=== PATIENT | female | born 1965 | race Two or more races ===

== ENCOUNTER 2022-02-22 17:31 | Emergency (ER) | payer MEDICARE, MEDICAID, SELFPAY ==
[2022-02-22 17:50] VITALS: BP 181/80; PULSE 81; O2SAT 96
--- NOTE | 2022-02-22 17:57 | ED_ITS ---
HPI - General Adult General Chief complaint: General Medical Stated complaint: INCREASED DEPRESSION Time Seen by Provider: 02/22/22 17:49 Source: patient and EMS Mode of arrival: EMS Limitations: no limitations History of Present Illness HPI narrative: This is a 57-year-old female history of CVA with left-sided deficits non ambulatory, anxiety, depression presenting to the emergency department via ambulance with complaints of anxiety and depression worsening over the past 2 months. Patient tells me she moved from [place] 2 months ago, is currently living with her sister, has not been taking any of my her medications as she ran out, and she has no healthcare providers here in the [facility]. Patient reports all her life stressors or causing her to feel anxious, depressed. patient is tearful. She denies visual, auditory and tactile hallucinations. Denies SI and HI. Denies any medical complaints. Onset (ago): month(s) (2) Radiation: non-radiation Relieving factors: none Exacerbating factors: none Associated symptoms: denies other symptoms Treatments prior to arrival: none Related Data Previous Rx's Medication Instructions Recorded lorazepam 0.5 mg tablet (Ativan) 0.5 mg PO BID PRN anxiety #12 tabs 02/23/22 metformin 500 mg tablet 500 mg PO BID #30 tabs 02/23/22 Allergies Allergy/AdvReac Type Severity Reaction Status Date / Time No Known Allergies Allergy Unverified 03/24/20 19:26 [No Known Allergies*] Review of Systems Review of Systems: Constitutional : No Weight loss, No Fever, No Chills, No Fatigue, No Malaise ENT/Mouth : No sore throat, No Rhinorrhea Eyes: No Eye Pain, No Swelling, No Redness Cardiovascular : No Chest Pain, No SOB, No Dyspnea on Exertion, No Orthopnea, No Edema, No Palpitations Respiratory : No Cough, No Sputum, No Wheezing Gastrointestinal : No Nausea, No Vomiting, No Diarrhea, No Constipation, No abdominal Pain, No Hematochezia, No Melena Genitourinary : No Dysuria, No Urinary Frequency, No Hematuria, Musculoskeletal : No joint pain, No Myalgias, No Joint Swelling Skin : No Skin Lesions, No rash Neuro : No Weakness, No Numbness, No Dizziness, No Headache Psych : + Anxiety/Panic, + Depression, No SI or HI All other systems reviewed and are negative Yes all other systems are reviewed and are negative PMFSH Past Medical History Attestation statement: The following information was validated with the patient. Source: old records reviewed and nursing notes reviewed Social History Social History Advance Directives: No Advance Directives Information Provided: No Physical Exam ED Vital Signs: Vital Signs - 24 hr 02/22/22 17:58 02/22/22 22:25 02/22/22 23:57 Temperature 98 F 98.1 F Pulse Rate 78 64 65 Respiratory Rate 18 19 20 Blood Pressure 148/76 H 135/73 117/76 Pulse Oximetry 98 96 95 Oxygen Delivery Method Room Air Room Air Room Air BMI result Body Mass Index 51.5 vss Appearance: Alert.? Oriented X3.? No acute distress.? Patient tearful. Head: Normocephalic, atraumatic, no step-offs or deformities Eyes: Pupils equal, round and reactive to light.? ENT: Pharynx normal.? Neck: Normal inspection.? Neck supple.? CVS: Normal heart rate and rhythm.? Pulses normal.? Respiratory: No respiratory distress.? Breath sounds normal.? Abdomen: Soft and nontender.? Skin: Skin warm and dry.? Normal skin color.? Normal skin turgor.? Extremities: No lower extremity edema.? No calf ttp. 5/5 strength to Right upper and right lower extremities. Weakness to left upper and left lower extremities from old CVA. Neuro: Oriented X 3.? No motor deficit.? No sensory deficit. CN 2-12 intact Course Reevaluation(s) Reevaluation #1: CBC with no acute findings. Chemistry with no acute electrolyte abnormalities requiring intervention. Urine clean. Ethanol negative. COVID negative. Urine toxicology pending. Time: 22:48 Reevaluation #2: Patient's glucose elevated, patient does not have a PCP at this time she will be started on metformin at 500 mg p.o. b.i.d. daily. I provided patient with outpatient provider so she can call and schedule an appointment. AMINATA Figueroa spoke to this patient, patient denying SI and HI, VH and is putting in an urgent outpatient referral for med providers. She is safe for discharge home diagnosis major depression and anxiety. At this time patient will be discharged. Advised to return with any new or worsening symptoms. Patient excited to go home, will go home with family member. I will start her on metformin as suggested to me by my attending. Gave her list of PCPs she will call tomorrow to schedule an appointment. Time: 01:45 Medical Decision Making MDM Narrative Medical decision making narrative: 1800 57-year-old female presents with anxiety, depression x2 months worsening over the past few days. Not taking any medications as she ran out. Recently moved from [place]. Physical examination with left-sided deficits to upper and lower extremities, regular rate and rhythm, lungs clear, abdomen soft nontender nondistended. Patient alert and oriented x4, tearful upon my examination. With stable vital signs. Left-sided deficits are from an old CVA, no signs of acute stroke at this time, no weakness, headache, dizziness or vision changes. Plan at this time is medical clearance and evaluation by the behavioral health team. Medical Records Medical records reviewed: Yes I reviewed the patient's medical records. Lab Data Lab results reviewed: Yes I reviewed the patient's lab results. Result diagrams: 02/22/22 18:37 02/22/22 18:37 Labs: Lab Results 02/22/22 02/22/22 02/22/22 Range/Units 18:37 18:37 18:37 WBC 10.9 H (4.8-10.8) X10*3/uL RBC 5.05 (4.20-5.50) X10*6/uL Hgb 14.4 (12.0-16.0) g/dl Hct 46.2 (37.0-47.0) % MCV 91.5 (80.0-98.0) fL MCH 28.5 (27.0-33.0) pg MCHC 31.2 (31.0-35.0) g/dl RDW 14.6 (11.0-16.0) % Plt Count 298 (160-400) X10*3/uL MPV 11.1 (9.4-12.3) fL Immature Gran % (Auto) 0.4 (0.0-0.4) % Neut % (Auto) 66.2 (45-73) % Lymph % (Auto) 24.1 (20-40) % [place] % (Auto) 6.2 (2-11) % Eos % (Auto) 2.6 (0-4) % Baso % (Auto) 0.5 (0-2) % Lymph # (Auto) 2.6 (1.2-4.9) X10*3/uL [place] # (Auto) 0.7 (0.1-1.2) X10*3/uL Eos # (Auto) 0.3 (0.0-0.4) X10*3/uL Baso # (Auto) 0.1 (0.0-0.2) X10*3/uL Abs Immat Gran (auto) 0.04 H (0.00-0.03) X10*3/uL Absolute Neuts (auto) 7.2 (2.0-8.3) x10*3/uL Absolute Nucleated RBC 0.000 (0.0-0.012) X10*3/uL Nucleated RBC % (auto) 0.0 (0.0-0.2) /100WBC Sodium 137 (135-145) mmol/L Potassium 4.7 (3.3-5.1) mmol/L Chloride 101 (96-108) mmol/L Carbon Dioxide 25 (22-29) mmol/L Anion Gap 16 (12-20) BUN 12 (9-16) mg/dL Creatinine 0.80 (0.5-1.4) mg/dL Estim Creat Clear Calc 105.6 Estimated GFR > 60 Random Glucose 308 H (60-115) mg/dL Calcium 9.1 (8.4-10.2) mg/dL Magnesium 1.9 (1.6-2.6) mg/dL Total Bilirubin 0.3 (0.0-1.0) mg/dL AST 87 H (5-31) U/L ALT 81 H (0-31) U/L Alkaline Phosphatase 102 (39-117) U/L Total Protein 7.5 (6.5-8.0) g/dL Albumin 3.7 (3.5-5.0) g/dL Urine Color Urine Appearance Urine pH (5.0-8.0) Ur Specific [place] (1.005-1.025) Urine Protein (Neg-Trace) mg/dL Urine Glucose (UA) (Negative) mg/dL Urine Ketones (Negative) mg/dL Urine Blood (Negative) Urine Nitrite (Negative) Ur Leukocyte Esterase (Negative) Urine RBC (0-2) /HPF Urine WBC (0-5) /HPF Ur Squamous Epith Cells (0-2) /HPF Urine Bacteria (None Seen) Hyaline Casts (0-2) /LPF Urine Opiates Screen (Not Detect) Urine Fentanyl Screen (Not Detect) Ur Barbiturates Screen (Not Detect) Ur Phencyclidine Scrn (Not Detect) Ur Amphetamines Screen (Not Detect) U Benzodiazepines Scrn (Not Detect) Urine Cocaine Screen (Not Detect) U Marijuana (THC) Screen (Not Detect) Ethyl Alcohol < 10 mg/dL COVID-19 (SHELBY) Negative (Negative) COVID-19 Clin Com See Note 02/22/22 02/22/22 Range/Units 22:36 22:36 WBC (4.8-10.8) X10*3/uL RBC (4.20-5.50) X10*6/uL Hgb (12.0-16.0) g/dl Hct (37.0-47.0) % MCV (80.0-98.0) fL MCH (27.0-33.0) pg MCHC (31.0-35.0) g/dl RDW (11.0-16.0) % Plt Count (160-400) X10*3/uL MPV (9.4-12.3) fL Immature Gran % (Auto) (0.0-0.4) % Neut % (Auto) (45-73) % Lymph % (Auto) (20-40) % [place] % (Auto) (2-11) % Eos % (Auto) (0-4) % Baso % (Auto) (0-2) % Lymph # (Auto) (1.2-4.9) X10*3/uL [place] # (Auto) (0.1-1.2) X10*3/uL Eos # (Auto) (0.0-0.4) X10*3/uL Baso # (Auto) (0.0-0.2) X10*3/uL Abs Immat Gran (auto) (0.00-0.03) X10*3/uL Absolute Neuts (auto) (2.0-8.3) x10*3/uL Absolute Nucleated RBC (0.0-0.012) X10*3/uL Nucleated RBC % (auto) (0.0-0.2) /100WBC Sodium (135-145) mmol/L Potassium (3.3-5.1) mmol/L Chloride (96-108) mmol/L Carbon Dioxide (22-29) mmol/L Anion Gap (12-20) BUN (9-16) mg/dL Creatinine (0.5-1.4) mg/dL Estim Creat Clear Calc Estimated GFR Random Glucose (60-115) mg/dL Calcium (8.4-10.2) mg/dL Magnesium (1.6-2.6) mg/dL Total Bilirubin (0.0-1.0) mg/dL AST (5-31) U/L ALT (0-31) U/L Alkaline Phosphatase (39-117) U/L Total Protein (6.5-8.0) g/dL Albumin (3.5-5.0) g/dL Urine Color Yellow Urine Appearance Clear Urine pH 7.0 (5.0-8.0) Ur Specific [place] 1.025 (1.005-1.025) Urine Protein Negative (Neg-Trace) mg/dL Urine Glucose (UA) >=1000 H (Negative) mg/dL Urine Ketones Trace (Negative) mg/dL Urine Blood Negative (Negative) Urine Nitrite Negative (Negative) Ur Leukocyte Esterase Negative (Negative) Urine RBC 0-2 (0-2) /HPF Urine WBC 0-5 (0-5) /HPF Ur Squamous Epith Cells 6-10 (0-2) /HPF Urine Bacteria 1+ (None Seen) Hyaline Casts 0-2 (0-2) /LPF Urine Opiates Screen Not Detected (Not Detect) Urine Fentanyl Screen Not Detected (Not Detect) Ur Barbiturates Screen Not Detected (Not Detect) Ur Phencyclidine Scrn Not Detected (Not Detect) Ur Amphetamines Screen Not Detected (Not Detect) U Benzodiazepines Scrn Not Detected (Not Detect) Urine Cocaine Screen Not Detected (Not Detect) U Marijuana (THC) Screen Not Detected (Not Detect) Ethyl Alcohol mg/dL COVID-19 (SHELBY) (Negative) COVID-19 Clin Com Critical Care Time Critical Care Time Critical Care Time: No Discharge Plan Discharge Clinical Impression: Depression, Anxiety, High blood sugar Patient Disposition: Home, Self-Care Instructions: Depression (ED), Generalized Anxiety Disorder (ED), Anxiety (ED), Diabetic Hyperglycemia (ED) Additional Instructions: Take your medications as prescribed. If you were prescribed antibiotics today, it is important that you take your medication to their entirety, do not skip any doses, do not finish them early. Follow-up with your primary care provider this week. Follow-up with the behavioral health team Return to the emergency department with new or worsening symptoms. Such as fevers, chills, chest pain, shortness of breath, nausea, vomiting, dizziness, headache, vision changes, lethargy In case of emergency call 911 Your sugar was noted to be elevated. Please follow-up with a primary care provider I gave you list of providers in the area. [place] naya medicamentos seg?n lo prescrito. Si le recetaron antibi?ticos hoy, es importante que tome mary medicamento en mary totalidad, no se salte ninguna dosis, no los termine antes de tiempo. Seguimiento con mary proveedor de atenci?n primaria esta semana. Seguimiento con el equipo de yaquelin conductual Regrese al departamento de emergencias con s?ntomas nuevos o que empeoran. [place] fiebre, escalofr?os, dolor de pecho, dificultad para respirar, n?useas, v?mitos, mareos, dolor de bernie, cambios en la visi?n, letargo En daren de emergencia llama al 911 Se not? que mary nivel de az?car estaba elevado. Tanna un seguimiento con un proveedor de atenci?n primaria. Le di hortensia lista de proveedores en el ?marshal. Prescriptions: New metformin 500 mg tablet 500 mg PO BID Qty: 30 0RF lorazepam [Ativan] 0.5 mg tablet 0.5 mg PO BID PRN (Reason: anxiety) Qty: 12 0RF Referrals: [facility] [Provider Group] - 1 day Lashon Senior MD [Primary Care Provider] - 2 days Print Language: Azeri
[2022-02-22 17:58] VITALS: BP 148/76; PULSE 78; RESP 18; TEMP 36.6; O2SAT 98; BMI 51.5
[2022-02-22 18:42] LABS: MANUAL DIFF FLAG NO
[2022-02-22 18:44] LABS: Basophils Absolute Auto 0.1 X10*3/uL (0.0-0.2); Basophils Percent Auto 0.5 % (0-2); Eosinophils Absolute Auto 0.3 X10*3/uL (0.0-0.4); Eosinophils Percent Auto 2.6 % (0-4); Hematocrit 46.2 % (37.0-47.0); Hemoglobin 14.4 g/dl (12.0-16.0); Imm Gran Abs Auto 0.04 X10*3/uL (0.00-0.03); Imm Gran Pct Auto 0.4 % (0.0-0.4); Lymphocytes Absolute Auto 2.6 X10*3/uL (1.2-4.9); Lymphocytes Percent Auto 24.1 % (20-40); Mean Corpuscular HGB Conc 31.2 g/dl (31.0-35.0); Mean Corpuscular Hemoglobin 28.5 pg (27.0-33.0); Mean Corpuscular Volume 91.5 fL (80.0-98.0); Mean Platelet Volume 11.1 fL (9.4-12.3); Monocytes Absolute Auto 0.7 X10*3/uL (0.1-1.2); Monocytes Percent Auto 6.2 % (2-11); Neutrophils Absolute Auto 7.2 x10*3/uL (2.0-8.3); Neutrophils Percent Auto 66.2 % (45-73); Platelet Count 298 X10*3/uL (160-400); Red Blood Count 5.05 X10*6/uL (4.20-5.50); Red Cell Distribution Width 14.6 % (11.0-16.0); White Blood Count 10.9 X10*3/uL (4.8-10.8)
[2022-02-22 18:57] LABS: COVID-19 Test Negative (Negative)
[2022-02-22 19:37] LABS: Alanine Aminotransferase 81 U/L (0-31); Albumin Level 3.7 g/dL (3.5-5.0); Alkaline Phosphatase 102 U/L (39-117); Anion Gap 16 (12-20); Aspartate Amino Transferase 87 U/L (5-31); Bilirubin Total 0.3 mg/dL (0.0-1.0); Blood Urea Nitrogen 12 mg/dL (9-16); Calcium 9.1 mg/dL (8.4-10.2); Carbon Dioxide 25 mmol/L (22-29); Chloride 101 mmol/L (96-108); Creatinine Clr Calc Pharmacy 105.6; Estimated Glomerular Filt Rate > 60; Ethanol < 10 mg/dL; Glucose Random 308 mg/dL (60-115); Magnesium 1.9 mg/dL (1.6-2.6); Potassium 4.7 mmol/L (3.3-5.1); Sodium 137 mmol/L (135-145); Total Protein 7.5 g/dL (6.5-8.0)
[2022-02-22] MEDS: Acetaminophen 325 MG TABLET 650 MG PO (21:52)
[2022-02-22 22:25] VITALS: BP 135/73; PULSE 64; RESP 19; TEMP 36.7; O2SAT 96
--- NOTE | 2022-02-22 22:33 | PC.NURSE ---
[facility] referral completed.
[2022-02-22 22:44] LABS: Appearance Urine Clear; Color Urine Yellow; Glucose Urine UA >=1000 mg/dL (Negative); Leukocyte Esterase Urine Negative (Negative); Nitrite Urine Negative (Negative); Specific Gravity - Urine 1.025 (1.005-1.025); Urine Blood Negative (Negative); Urine Ketones Trace mg/dL (Negative); Urine Protein Negative (Neg-Trace)
[2022-02-22 22:56] LABS: Bacteria Urine 1+ (None Seen); Hyaline Casts Urine 0-2 /LPF (0-2); RBC Urine 0-2 /HPF (0-2); WBC Urine 0-5 /HPF (0-5)
[2022-02-22 22:57] LABS: Amphetamine Screen Urine Not Detected (Not Detect); Barbiturates, Urine Not Detected (Not Detect); Benzodiazepines Screen Urine Not Detected (Not Detect); Cannabinoid Screen Urine Not Detected (Not Detect); Cocaine Screen Urine Not Detected (Not Detect); Fentanyl, urine Not Detected (Not Detect); Opiate Screen Urine Not Detected (Not Detect); Phencyclidine Screen Urine Not Detected (Not Detect)
[2022-02-22 23:57] VITALS: BP 117/76; PULSE 65; RESP 20; O2SAT 95
[2022-02-23 02:21] VITALS: BP 120/78; PULSE 79; RESP 20; O2SAT 92
[2022-02-23] MEDS: metFORMIN HCl ER 500 MG TAB.ER.24H PO (02:35)
[2022-02-23 05:14] LABS: Estimated Average Glucose 223 mg/dL; Hemoglobin A1c % 9.4 %
== END 2022-02-23 03:00 | disposition home or self-care (01) ==
PROVIDERS: Physician Assistant; Emergency Provider Internal Medicine; PCP Internal Medicine
DX: F41.9 Anxiety disorder, unspecified (principal); F32.A Depression, unspecified; E11.65 Type 2 diabetes mellitus with hyperglycemia; Z76.0 Encounter for issue of repeat prescription; Z20.822 Contact with and (suspected) exposure to COVID-19
CPT/HCPCS: 80053; 80307; 81001; 82077; 83036; 83735; 85025; 87635; 99283

== ENCOUNTER 2022-07-17 10:09 | Outpatient (REF) | payer MEDICARE, MEDICAID, SELFPAY ==
[2022-07-17 13:10] LABS: Alanine Aminotransferase 68 U/L (0-31); Albumin Level 4.1 g/dL (3.5-5.0); Alkaline Phosphatase 94 U/L (39-117); Anion Gap 17 (12-20); Aspartate Amino Transferase 87 U/L (5-31); Bilirubin Total 0.7 mg/dL (0.0-1.0); Blood Urea Nitrogen 12 mg/dL (9-16); Calcium 9.5 mg/dL (8.4-10.2); Carbon Dioxide 24 mmol/L (22-29); Chloride 100 mmol/L (96-108); Cholesterol 234 mg/dL; Estimated Glomerular Filt Rate > 60; Glucose Fasting 239 mg/dL (60-99); HDL Cholesterol 39 mg/dL; LDL Cholesterol Calculated 150 mg/dl; Potassium 4.3 mmol/L (3.3-5.1); Sodium 137 mmol/L (135-145); Total Protein 8.7 g/dL (6.5-8.0); Triglycerides 226 mg/dL
[2022-07-17 13:33] LABS: Vitamin D 25-OH Total 54.9 ng/mL (>30)
== END 2022-07-17 10:10 | disposition home or self-care (01) ==
LOC: HO.LAB 10:09
PROVIDERS: PCP Internal Medicine; Visit Provider Internal Medicine
DX: E78.5 Hyperlipidemia, unspecified (principal); E55.9 Vitamin D deficiency, unspecified; E11.9 Type 2 diabetes mellitus without complications
CPT/HCPCS: 36415; 80053; 80061; 82306

== ENCOUNTER 2022-12-05 09:03 | Outpatient (REF) | payer MEDICARE, MEDICAID, SELFPAY ==
[2022-12-05 10:02] LABS: MANUAL DIFF FLAG NO
[2022-12-05 10:45] LABS: Basophils Absolute Auto 0.1 X10*3/uL (0.0-0.2); Basophils Percent Auto 0.9 % (0-2); Eosinophils Absolute Auto 0.5 X10*3/uL (0.0-0.4); Eosinophils Percent Auto 4.6 % (0-4); Hematocrit 47.9 % (37.0-47.0); Hemoglobin 14.7 g/dl (12.0-16.0); Imm Gran Abs Auto 0.04 X10*3/uL (0.00-0.03); Imm Gran Pct Auto 0.4 % (0.0-0.4); Lymphocytes Absolute Auto 3.1 X10*3/uL (1.2-4.9); Lymphocytes Percent Auto 30.9 % (20-40); Mean Corpuscular HGB Conc 30.7 g/dl (31.0-35.0); Mean Corpuscular Hemoglobin 28.8 pg (27.0-33.0); Mean Corpuscular Volume 93.7 fL (80.0-98.0); Mean Platelet Volume 11.6 fL (9.4-12.3); Monocytes Absolute Auto 0.5 X10*3/uL (0.1-1.2); Monocytes Percent Auto 4.9 % (2-11); Neutrophils Absolute Auto 5.9 x10*3/uL (2.0-8.3); Neutrophils Percent Auto 58.3 % (45-73); Platelet Count 327 X10*3/uL (160-400); Red Blood Count 5.11 X10*6/uL (4.20-5.50); White Blood Count 10.2 X10*3/uL (4.8-10.8)
[2022-12-05 11:17] LABS: Gamma Glutamyl Transpeptidase 91 U/L (7-33)
[2022-12-05 11:37] LABS: Ferritin 579 ng/mL (10-250)
[2022-12-05 11:40] LABS: HBS Num1 0.08 mIU/mL (0-7.99); HBc Num1 0.14 S/CO (0.00-0.79); HBsAGNum1 0.31 S/CO (0.00-0.99); HIV AB/AG Nonreactive (Nonreactive); HIV Num 1 0.06 S/CO (0.00-0.99); Hepatitis A Antibody IgM 0.14 Index (0-0.79); Hepatitis B Core Antibody Nonreactive (Nonreactive); Hepatitis B Surface Antigen Negative (Negative); ~HepC Num1 0.21 S/CO (0.00-0.79); ~Hepatitis A Antibody IgM Nonreactive (Nonreactive); ~Hepatitis B Surface Antibody NONREACTIVE (Nonreactive); ~Hepatitis C Antibody Nonreactive (Nonreactive)
[2022-12-10 13:18] LABS: Alpha Fetoprotein 3.3 ng/mL
[2022-12-11 12:09] LABS: Mitochondrial Antibodies NEGATIVE (NEGATIVE)
[2022-12-11 14:39] LABS: Anti Nuclear Antibody Screen NEGATIVE (NEGATIVE)
[2022-12-11 23:43] LABS: Smooth Muscle Antibody <20 U (<20)
== END 2022-12-05 09:04 | disposition home or self-care (01) ==
LOC: HO.LAB 09:03
PROVIDERS: PCP Internal Medicine; Visit Provider Nurse Practitioner
DX: R74.01 Elevation of levels of liver transaminase levels (principal); E66.01 Morbid (severe) obesity due to excess calories; E11.65 Type 2 diabetes mellitus with hyperglycemia; K75.81 Nonalcoholic steatohepatitis (NASH)
CPT/HCPCS: 36415; 82105; 82728; 82977; 85025; 86015; 86038; 86255; 86256; 86704; 86706; 86709; 86803; 87340; 87389; 99202

== ENCOUNTER 2022-12-13 13:14 | Outpatient (REF) | payer MEDICARE, MEDICAID, SELFPAY ==
--- NOTE | ~2022-12-13 | MM_ITS ---
EXAMINATION: BONE DENSITOMETRY CLINICAL INDICATION: Unspecified menopausal and perimenopausal disorder. COMPARISON: None (current study represents initial baseline exam). TECHNIQUE: Using a [employer] DXA System (software version: 13.1) manufactured by [employer], dual-energy x-ray absorptiometry was performed of the lumbar spine and left hip. The images are of good technical quality. Summary results are attached. FINDINGS: AP SPINE L1-L4: BMD 1.181 g/cm2, Z-score -0.1, T-score 0.0, normal. LEFT FEMUR, NECK: BMD 0.691 g/cm2, Z-score -2.1, T-score -2.5, osteoporosis. LEFT FEMUR, TOTAL: BMD 0.651 g/cm2, Z-score -2.8, T-score -2.8, osteoporosis. IDENTIFIED RISK FACTORS: Menopause, secondary osteoporosis, history of fracture (adult). HISTORY OF FRACTURE: Shoulder. MEDICATIONS: Vitamin D. MM/XR DEXA axial skeleton IMPRESSION: 1. DIAGNOSIS: Osteoporosis based on the lowest T-score value of -2.8 in the total femur applying World Health Organization criteria. 2. 10-YEAR FRACTURE RISK PREDICTION, FRAX: According to the guidelines, FRAX calculation should only be performed on patients in the osteopenia bone density category. Therefore, FRAX was not performed on this patient. 3. Treatment Recommendations: NOF guidelines recommend consideration for treatment in postmenopausal women and men age 50 and older presenting with the following: -A hip or vertebral (clinical or morphometric) fracture. -T-score less than or equal to -2.5 at the femoral neck or spine after appropriate evaluation to exclude secondary causes. -Low bone mass at the hip or spine and a 10-year fracture probability by FRAX of greater than or equal to 3% for hip fracture or greater than or equal to 20% for major osteoporotic fracture based on the [place] adapted WHO algorithm. 4. Other Recommendations: All treatment decisions require clinical judgment and consideration of individual patient factors, including patient preferences, comorbidities, previous drug use, risk factors not captured in the FRAX model (e.g. frailty, falls, vitamin D deficiency, increased bone turnover, interval significant decline in bone density) and possible under or overestimation of fracture risk by FRAX. Additional medical evaluation for secondary cause of low bone mineral density may be appropriate. FUTURE SCAN RECOMMENDATION: People with diagnosed cases of osteoporosis or at high risk for fracture should have regular bone mineral density tests. For patients eligible for Medicare, routine testing is allowed once every 2 years. The testing frequency can be increased to one year for patients who have rapidly progressing disease, those who are receiving or discontinuing medical therapy to restore bone mass, or have additional risk factors.
--- NOTE | ~2022-12-13 | MM_ITS ---
EXAMINATION: MM SCREENING DIGITAL BREAST TOMOSYNTHESIS, BILATERAL CLINICAL INFORMATION: Screening. Asymptomatic. Prior outside mammography from [place] currently unavailable. The lifetime risk of breast cancer based on the Tyrer-Cuzick Model is 17%. COMPARISON: None. TECHNIQUE: Digital breast tomosynthesis is performed in both the craniocaudal and mediolateral oblique views along with computer-aided detection (CAD). Synthesized 2D images are generated from the tomosynthesis. Additional bilateral CC and right MLO views are provided. Technologist notes technically challenging exam, patient in wheelchair. Images tailored to patient capabilities. FINDINGS: There are scattered areas of fibroglandular density (ACR BI-RADS breast composition Category b). Breast tissue composition borders on heterogeneously dense. There are no significant masses, abnormal calcifications, or other abnormalities. No architectural abnormality. There is limited evaluation axilla related to the challenging positioning. The skin contours are smooth. If prior outside mammography is able to be retrieved, comparison will be made in an addendum report. MM/MM tomosynthesis screening BI IMPRESSION: No mammographic evidence of malignancy. ASSESSMENT: BI-RADS 2: Benign RECOMMENDATION: -Technically challenging exam tailored to patient capabilities. Evaluation of the axilla may be correlated with routine clinical exam. -Routine annual mammography screening. This patient's information was entered into a reminder system with a target due date for their next mammogram.
== END 2022-12-13 13:15 | disposition home or self-care (01) ==
LOC: HO.MAMMO 13:14
PROVIDERS: Visit Provider Internal Medicine
DX: Z12.31 Encounter for screening mammogram for malignant neoplasm of breast (principal); Z13.820 Encounter for screening for osteoporosis; Z78.0 Asymptomatic menopausal state
CPT/HCPCS: 77063; 77067; 77080

== ENCOUNTER 2023-01-17 10:24 | Outpatient (REF) | payer OTHER, SELFPAY ==
--- NOTE | ~2023-01-17 | US_ITS ---
EXAMINATION: US COMPLETE ABDOMEN WITH LIVER ELASTOGRAPHY CLINICAL INFORMATION: Elevated liver transaminase levels. COMPARISON: None available. TECHNIQUE: Real-time imaging of the abdominal viscera. Noninvasive ultrasound liver fibrosis assessment is performed using [employer] point quantification shear wave elastography (2D-SWE) with a C5-2 MHz transducer. Multiple elastography samples are obtained. FINDINGS: PANCREAS: Largely obscured by overlapping bowel gas. ABDOMINAL AORTA: The proximal, middle, and distal aortic segments are normal in caliber. INFERIOR VENA CAVA: Visualized portions are normal. LIVER: There is hepatomegaly. There is normal contour and generally increased echogenicity. No focal lesion or intrahepatic biliary duct dilatation. The right lobe measures 21.5 cm in length. The left lobe measures 13.3 cm in length. Portal flow is towards the liver (hepatopetal). Shear wave liver elastography median stiffness is 1.82 m/s (reference: normal median stiffness is 1.3 m/s or less). IQR/median stiffness to assess sampling precision is 0.08 (reference: good quality data set is IQR/median stiffness of 0.15 or less). GALLBLADDER: Surgically absent. COMMON BILE DUCT: Normal in caliber measuring 0.5 cm in diameter. RIGHT KIDNEY: Normal. No hydronephrosis. No renal calculi or focal parenchymal lesions. The kidney measures 10.5 cm in maximum dimension. LEFT KIDNEY: Normal. No hydronephrosis. No renal calculi or focal parenchymal lesions. The kidney measures 11.1 cm in maximum dimension. SPLEEN: Normal. The spleen measures 9.9 cm in maximum dimension. FREE FLUID: None. US/US abdomen comp w elastography IMPRESSION: 1. There is hepatomegaly. 2. There is generalized increase in hepatic echotexture, consistent with fatty infiltration or hepatocellular disease. Please correlate clinically. No focal hepatic mass or intrahepatic biliary dilatation is seen. 3. Liver elastography: Measurements are suggestive of compensated advanced chronic liver disease but need further test for confirmation. 4. Technically limited ultrasound examination the pancreas. 5. The gallbladder is surgically absent. REFERENCE: Society of Radiologists in Ultrasound Liver Stiffness Thresholds (2020): LIVER STIFFNESS THRESHOLDS: *Liver Stiffness equal or less than 1.3 m/s: High probability of being normal. *Liver Stiffness less than 1.7 m/s: In the absence of other known clinical signs, rules out compensated advanced chronic liver disease. *Liver Stiffness 1.7-2.1 m/s: Suggestive of compensated advanced chronic liver disease but need further test for confirmation. *Liver Stiffness over 2.1 m/s: Rules in compensated advanced chronic liver disease. *Liver Stiffness over 2.4 m/s: Suggestive of clinically significant portal hypertension. QUALITY OF DATA SET: *IQR/Median value equal or less than 0.15 implies a quality data set. *IQR/Median value over 0.15 implies a poor quality data set. SIGNIFICANT CHANGE FROM PRIOR EXAM: Significant change if liver stiffness measurement is 10% or greater from prior exam. OTHER CONSIDERATIONS: The stage of liver fibrosis may be overestimated in the setting of acute hepatitis, liver inflammation, elevated liver function tests, hepatic vascular congestion, obstructive cholestasis, non-fasting state, and infiltrative diseases such as amyloidosis and lymphoma. In some patients with NAFLD, the liver stiffness thresholds for compensated advanced chronic liver disease may be lower. In causes other than viral hepatitis and NAFLD, liver stiffness thresholds are not well established.
== END 2023-01-17 10:25 | disposition home or self-care (01) ==
LOC: HO.US 10:24
PROVIDERS: PCP Internal Medicine; Visit Provider Nurse Practitioner
DX: R74.01 Elevation of levels of liver transaminase levels (principal)
CPT/HCPCS: 76705; 76981

== ENCOUNTER 2023-01-29 12:42 | Outpatient (AMB) | payer OTHER, MEDICAID, SELFPAY ==
--- NOTE | 2023-01-29 12:47 | MHC.OFFVIS ---
Intake Vital Signs 01/29/23 12:54 Height 5 ft 4 in BMI Reason not done Patient refused/unable BP 138/69 Blood Pressure Location Rt radial Position Sitting Pulse 73 Intake Visit Reasons: 6 week follow up Intake Note: Suma presents in the office as a 6 week follow up. CC: Attempted to get her to step on scale but she said she was unable too. She states she is not having concerns. Pharmacovigilance Scientist Required: Yes Pharmacovigilance Scientist Name: [id number] [place] Allergies No Known Allergies [No Known Allergies*] Allergy (Verified 01/29/23 12:56) HPI 6 week follow up HPI Details .Assessment & Plan (1) Transaminitis: Comment: Baseline Laboratory Tests 07/17/22 Estimated GFR > 60 Hgb A1c (Clinic) 8.2 H Total Bilirubin 0.7 AST 87 H ALT 68 H Alkaline Phosphatase 94 Code(s): R74.01 - Elevation of levels of liver transaminase levels Plan: Citizen Of [place] [facility] She is here with a male family member, son. She is uncertain why she is here. There is no FHX of liver problems, only renal. She is concerned if although medicines I am on are effecting my liver , but she is not on any particular liver toxic medications. She is on atorvastatin, but any minimal elevation this may cause is outweighed by the benefit. She asks about Tylenol use and I advise her she is ok to take it but not to exceed the recommended dosage on the box. She only takes 2 fine for her mg tablets daily which is well within reasonable limits. She is morbidly obese and her diabetes is not optimally controlled. In terms of her diabetes she says that she was out of medications for some time when she came over from [place] and she feels this may be impacting the numbers I am seeing. However I do use this to tell her that weight loss along with diabetes control and avoidance of alcohol are the 3 things that will make the biggest impact on keeping her liver healthy. My role will be to perform some additional tests to see if there are any other reversible causes of liver disease and to see what stage she is at this point. I let her know I will order blood tests and ultrasound with elastography. She is requesting a possible referral to weight management. She really does not need a referral I give her the phone number for our weight Management Department and she can go from there. Return office visit in 6 weeks to go over what ever results we have adapt point. (2) Morbid obesity: Code(s): E66.01 - Morbid (severe) obesity due to excess calories (3) Poorly controlled diabetes mellitus: Code(s): E11.65 - Type 2 diabetes mellitus with hyperglycemia Orders: Orders Alpha Fetoprotein Today R74.01 - Elevation of levels of liver transaminase levels Ferritin Today R74.01 - Elevation of levels of liver transaminase levels Gamma Glutamyl Transpeptidase Today R74.01 - Elevation of levels of liver transaminase levels Complete Blood Count Auto Diff Today R74.01 - Elevation of levels of liver transaminase levels LASHON Reflex Titer and Pattern Today R74.01 - Elevation of levels of liver transaminase levels Mitochondrial Antibody Today R74.01 - Elevation of levels of liver transaminase levels Smooth Muscle Antibody Today R74.01 - Elevation of levels of liver transaminase levels Hepatitis A,B,C Profile Today R74.01 - Elevation of levels of liver transaminase levels HIV Ab/Ag Today R74.01 - Elevation of levels of liver transaminase levels US abdomen comp w elastography Today R74.01 - Elevation of levels of liver transaminase levels Referrals Medical Weight Management Referral E11.65 - Type 2 diabetes mellitus with hyperglycemia, E66.01 - Morbid (severe) obesity due to excess calories, R74.01 - Elevation of levels of liver transaminase levels LABS: Laboratory Tests 02/22/22 07/17/22 12/05/22 18:37 10:16 10:00 WBC 10.2 Hgb 14.7 Hct 47.9 H Plt Count 327 Estimated GFR > 60 Hgb A1c (Clinic) Hemoglobin A1c % 9.4 Ferritin Total Bilirubin 0.7 GGT AST 87 H ALT 68 H Alkaline Phosphata se 94 Alpha Fetoprotein LASHON Screen Anti-Mitochondrial Ab Anti-Smooth Muscle Ab Hepatitis A IgM Ab Hep Bs Antigen Hep Bs Antibody Hep B Core Total A b Hepatitis C Ab (EI A) HIV 1&2 Ab/P24 Ag 4thGn 12/05/22 12/05/22 12/05/22 10:00 10:00 10:00 WBC Hgb Hct Plt Count Estimated GFR Hgb A1c (Clinic) Hemoglobin A1c % Ferritin 579 H Total Bilirubin GGT 91 H AST ALT Alkaline Phosphata se Alpha Fetoprotein 3.3 LASHON Screen NEGATIVE Anti-Mitochondrial Ab Anti-Smooth Muscle Ab Hepatitis A IgM Ab Hep Bs Antigen Hep Bs Antibody Hep B Core Total A b Hepatitis C Ab (EI A) HIV 1&2 Ab/P24 Ag 4thGn 12/05/22 12/05/22 12/06/22 10:00 10:00 09:33 WBC Hgb Hct Plt Count Estimated GFR Hgb A1c (Clinic) 7.3 H Hemoglobin A1c % Ferritin Total Bilirubin GGT AST ALT Alkaline Phosphata se Alpha Fetoprotein LASHON Screen Anti-Mitochondrial Ab NEGATIVE Anti-Smooth Muscle Ab <20 Hepatitis A IgM Ab Nonreactive Hep Bs Antigen Negative Hep Bs Antibody NONREACTIVE Hep B Core Total A b Nonreactive Hepatitis C Ab (EI A) Nonreactive HIV 1&2 Ab/P24 Ag 4thGn Nonreactive ULTRASOUND OF THE ABDOMEN WITH ELASTOGRAPHY 01/22/23 (F-3) FINDINGS: PANCREAS: Largely obscured by overlapping bowel gas.? ABDOMINAL AORTA: The proximal, middle, and distal aortic segments are normal in caliber.? INFERIOR VENA CAVA: Visualized portions are normal.? LIVER: There is hepatomegaly. There is normal contour and generally increased echogenicity. No focal lesion or intrahepatic biliary duct dilatation. The right lobe measures 21.5 cm in length.? The left lobe measures 13.3 cm in length.? Portal flow is towards the liver (hepatopetal). Shear wave liver elastography median stiffness is 1.82 m/s (reference: normal median stiffness is 1.3 m/s or less). IQR/median stiffness to assess sampling precision is 0.08 (reference: good quality data set is IQR/median stiffness of 0.15 or less). GALLBLADDER: Surgically absent.? COMMON BILE DUCT: Normal in caliber measuring 0.5 cm in diameter. RIGHT KIDNEY: Normal. No hydronephrosis. No renal calculi or focal parenchymal lesions. The kidney measures 10.5 cm in maximum dimension. LEFT KIDNEY: Normal. No hydronephrosis. No renal calculi or focal parenchymal lesions. The kidney measures 11.1 cm in maximum dimension. SPLEEN: Normal. The spleen measures 9.9 cm in maximum dimension. FREE FLUID: None.? US/US abdomen comp w elastography IMPRESSION: ? 1. There is hepatomegaly. ? 2. There is generalized increase in hepatic echotexture, consistent with fatty infiltration or hepatocellular disease. Please correlate clinically. No focal hepatic mass or intrahepatic biliary dilatation is seen. ? 3. Liver elastography:? Measurements are suggestive of compensated advanced chronic liver disease but need further test for confirmation. ? 4. Technically limited ultrasound examination the pancreas. ? 5. The gallbladder is surgically absent. ? TODAY'S VISIT [place] #[id number], [place] She is accompanied by male family member who is supportive. I explained all of the findings and it does seem clear that this is related to POWERS her fatty liver syndrome. She is morbidly obese and wheelchair-bound so although weight loss is difficult I do encourage her to try to lose at least 10-15% for her best liver helpful... She is also diabetic and in the past had poor glycemic control but this has improved dramatically since last summer. My only lingering concern is her elevated ferritin and I would like to do a hemochromatosis genetic screen to make sure this is not a contributing factor. I did community health counselor her that she does not need to change any of her medication habits only to avoid taking any oral iron supplementation. She shares me that she does not take this. She also does not drink alcohol. Return office visit in 6 months. [facility] Surgical History History of History of cholecystectomy History of knee surgery History of shoulder surgery Family History Mother Breast cancer Hypertension Diabetes Kidney disease Father No problems noted. Social History Housing: Apartment Alcohol intake: current Alcohol intake frequency: holidays/special occasions only Alcohol type: beer and wine Patient Tobacco Use Status: Former Tobacco user Tobacco use type: Cigarette e-Cigarette/Vaping Use: Never Used Second Hand Smoke Exposure: No service: No Current occupational status: unemployed Cognitive needs: Yes Hearing needs: No Vision needs: Yes Review of Systems Const Denies fatigue, Denies fever(s), Denies night sweats, Denies poor appetite and Denies weight loss ENT Reports Normal hearing present, Denies dental pain, Denies dysphagia, Denies hearing loss, Denies mouth pain, Denies odynophagia, Denies throat swelling, Denies tongue swelling and Reports other (Dentition adequate) Card Reports no additional complaints Resp Reports no additional complaints GI Denies abdominal pain, Denies melena, Denies bloating, Denies hematochezia, Denies constipation, Denies GI cramping, Denies dysphagia, Denies excessive flatus, Denies early satiety, Denies heartburn, Denies diarrhea, Denies nausea, Denies odynophagia, Denies vomiting and Denies hematemesis Skin/Breast Denies pruritus, Denies lesions, Denies rash and Denies jaundice Neuro Reports Normal hearing present and Denies Abnormal speech present Endo Denies fatigue Aller/Immun Denies throat swelling and Denies tongue swelling Physical Exam Vital Signs: Last Vital Signs Pulse 73 01/29/23 12:54 BP 138/69 01/29/23 12:54 Const General: cooperative, no acute distress, well developed and well groomed Nutritional Appearance: well nourished and obese Orientation/consciousness: oriented to person, oriented to place and oriented to time Limitations: language barrier and wheelchair HEENT Head: Yes normocephalic and Yes atraumatic Eyes General: appearance normal, both eyes and all related structures Pupils: Equal, round and reactive pupils present Neck Neck: Yes normal visual inspection and Yes no lymphadenopathy Thyroid: Thyroid normal Resp Effort & Inspection: normal respiratory effort and able to speak in complete sentences Auscultation: clear to auscultation bilaterally Cardio Rate: regular rate Rhythm: regular rhythm Heart sounds: Normal, physiologic split S2 sound present Peripheral pulses: radial pulses present and posterior tibial pulses present GI Inspection: No distended, Yes Abdominal panniculus present and Yes obesity Palpation (GI): Soft to palpation, nontender, no guarding, not rigid and No hepatosplenomegaly present Percussion: Yes normal to percussion Auscultation: normal bowel sounds Rectal Exam - Female: deferred Skin General skin exam: no rashes or lesions noted, turgor normal, skin not dry, no jaundice, No spider nevi and no striae Rashes: no rashes Nails: normal Neuro General: oriented to person, oriented to place and oriented to time Cranial nerves: Yes Equal, round and reactive pupils present and Yes Normal hearing present Speech: No Abnormal speech present Extrem General: Yes normal to inspection, No clubbing, No cyanosis and No edema Psych Appearance: grossly normal and well kempt Mental Status: mental status grossly normal Speech and movement: Normal speech and movement present Affect: normal affect Attitude: cooperative Thought process: Normal thought process present and not confabulating Thought content: Normal thought content present Insight: Limited insight present (Psych) Judgement: Limited judgement present (Psych) Results Reviewed Results Reviewed: Laboratory Tests 02/22/22 07/17/22 12/05/22 18:37 10:16 10:00 WBC 10.2 Hgb 14.7 Hct 47.9 H Plt Count 327 Estimated GFR > 60 Hgb A1c (Clinic) Hemoglobin A1c % 9.4 Ferritin Total Bilirubin 0.7 GGT AST 87 H ALT 68 H Alkaline Phosphatase 94 Alpha Fetoprotein LASHON Screen Anti-Mitochondrial Ab Anti-Smooth Muscle Ab Hepatitis A IgM Ab Hep Bs Antigen Hep Bs Antibody Hep B Core Total Ab Hepatitis C Ab (EIA) HIV 1&2 Ab/P24 Ag 4thGn 12/05/22 12/05/22 12/05/22 10:00 10:00 10:00 WBC Hgb Hct Plt Count Estimated GFR Hgb A1c (Clinic) Hemoglobin A1c % Ferritin 579 H Total Bilirubin GGT 91 H AST ALT Alkaline Phosphatase Alpha Fetoprotein 3.3 LASHON Screen NEGATIVE Anti-Mitochondrial Ab Anti-Smooth Muscle Ab Hepatitis A IgM Ab Hep Bs Antigen Hep Bs Antibody Hep B Core Total Ab Hepatitis C Ab (EIA) HIV 1&2 Ab/P24 Ag 4thGn 12/05/22 12/05/22 12/06/22 10:00 10:00 09:33 WBC Hgb Hct Plt Count Estimated GFR Hgb A1c (Clinic) 7.3 H Hemoglobin A1c % Ferritin Total Bilirubin GGT AST ALT Alkaline Phosphatase Alpha Fetoprotein LASHON Screen Anti-Mitochondrial Ab NEGATIVE Anti-Smooth Muscle Ab <20 Hepatitis A IgM Ab Nonreactive Hep Bs Antigen Negative Hep Bs Antibody NONREACTIVE Hep B Core Total Ab Nonreactive Hepatitis C Ab (EIA) Nonreactive HIV 1&2 Ab/P24 Ag 4thGn Nonreactive ULTRASOUND OF THE ABDOMEN WITH ELASTOGRAPHY 01/22/23 (F-3) FINDINGS: PANCREAS: Largely obscured by overlapping bowel gas.? ABDOMINAL AORTA: The proximal, middle, and distal aortic segments are normal in caliber.? INFERIOR VENA CAVA: Visualized portions are normal.? LIVER: There is hepatomegaly. There is normal contour and generally increased echogenicity. No focal lesion or intrahepatic biliary duct dilatation. The right lobe measures 21.5 cm in length.? The left lobe measures 13.3 cm in length.? Portal flow is towards the liver (hepatopetal). Shear wave liver elastography median stiffness is 1.82 m/s (reference: normal median stiffness is 1.3 m/s or less). IQR/median stiffness to assess sampling precision is 0.08 (reference: good quality data set is IQR/median stiffness of 0.15 or less). GALLBLADDER: Surgically absent.? COMMON BILE DUCT: Normal in caliber measuring 0.5 cm in diameter. RIGHT KIDNEY: Normal. No hydronephrosis. No renal calculi or focal parenchymal lesions. The kidney measures 10.5 cm in maximum dimension. LEFT KIDNEY: Normal. No hydronephrosis. No renal calculi or focal parenchymal lesions. The kidney measures 11.1 cm in maximum dimension. SPLEEN: Normal. The spleen measures 9.9 cm in maximum dimension. FREE FLUID: None.? US/US abdomen comp w elastography IMPRESSION: ? 1. There is hepatomegaly. ? 2. There is generalized increase in hepatic echotexture, consistent with fatty infiltration or hepatocellular disease. Please correlate clinically. No focal hepatic mass or intrahepatic biliary dilatation is seen. ? 3. Liver elastography:? Measurements are suggestive of compensated advanced chronic liver disease but need further test for confirmation. ? 4. Technically limited ultrasound examination the pancreas. ? 5. The gallbladder is surgically absent. Assessment & Plan Assessment & Plan (1) POWERS (nonalcoholic steatohepatitis): Comment: Baseline Laboratory Tests 07/17/22 Estimated GFR > 60 Hgb A1c (Clinic) 8.2 H Total Bilirubin 0.7 AST 87 H ALT 68 H Alkaline Phosphatase 94 12/05/22 Plt Count 327 Estimated GFR > 60 Hgb A1c (Clinic) Hemoglobin A1c % 9.4 Total Bilirubin 0.7 AST 87 H ALT 68 H Alkaline Phosphatase 94 Ferritin 579 H GGT 91 H. Alpha Fetoprotein 3.3 LASHON Screen NEGATIVE Hgb A1c (Clinic) 7.3 H Anti-Mitochondrial Ab NEGATIVE Anti-Smooth Muscle Ab <20 Hepatitis A IgM Ab Nonreactive Hep Bs Antigen Negative Hep Bs Antibody NONREACTIVE Hep B Core Total Ab Nonreactive Hepatitis C Ab (EIA) Nonreactive HIV 1&2 Ab/P24 Ag 4thGn Nonreactive ULTRASOUND OF THE ABDOMEN WITH ELASTOGRAPHY 01/22/23 (F-3 CURRENT LABS ULTRASOUND OF THE ABDOMEN WITH ELASTOGRAPHY IMPRESSION: ? 1. There is hepatomegaly. ? 2. There is generalized increase in hepatic echotexture, consistent with fatty infiltration or hepatocellular disease. Please correlate clinically. No focal hepatic mass or intrahepatic biliary dilatation is seen. ? 3. Liver elastography:? Measurements are suggestive of compensated advanced chronic liver disease but need further test for confirmation. ? 4. Technically limited ultrasound examination the pancreas. ? 5. The gallbladder is surgically absent. Code(s): K75.81 - Nonalcoholic steatohepatitis (POWERS) Plan: [place] #[id number], [place] She is accompanied by male family member who is supportive. I explained all of the findings and it does seem clear that this is related to POWERS her fatty liver syndrome. She is morbidly obese and wheelchair-bound so although weight loss is difficult I do encourage her to try to lose at least 10-15% for her best liver helpful... She is also diabetic and in the past had poor glycemic control but this has improved dramatically since last summer. My only lingering concern is her elevated ferritin and I would like to do a hemochromatosis genetic screen to make sure this is not a contributing factor. I did community health counselor her that she does not need to change any of her medication habits only to avoid taking any oral iron supplementation. She shares me that she does not take this. She also does not drink alcohol. Return office visit in 6 months. (2) Transaminitis: Comment: Baseline Laboratory Tests 07/17/22 Estimated GFR > 60 Hgb A1c (Clinic) 8.2 H Total Bilirubin 0.7 AST 87 H ALT 68 H Alkaline Phosphatase 94 Code(s): R74.01 - Elevation of levels of liver transaminase levels (3) Morbid obesity: Code(s): E66.01 - Morbid (severe) obesity due to excess calories (4) Diabetes mellitus: Code(s): E11.9 - Type 2 diabetes mellitus without complications Orders: Orders DNA Analysis Hemochromatosis Today R74.01 - Elevation of levels of liver transaminase levels, R79.89 - Other specified abnormal findings of blood chemistry Coding Level of Care Code Est Pt Level 4 (29733) Diagnoses POWERS (nonalcoholic steatohepatitis) K75.81 Transaminitis R74.01 Morbid obesity E66.01 Diabetes mellitus E11.9
[2023-01-29 12:54] VITALS: BP 138/69; PULSE 73
== END 2023-01-29 13:19 | disposition home or self-care (01) ==
PROVIDERS: PCP Internal Medicine; Visit Provider Nurse Practitioner
DX: K75.81 Nonalcoholic steatohepatitis (NASH) (principal); R74.01 Elevation of levels of liver transaminase levels; E66.01 Morbid (severe) obesity due to excess calories; E11.9 Type 2 diabetes mellitus without complications
CPT/HCPCS: 99214

== ENCOUNTER 2023-01-29 12:42 | Outpatient (REF) | payer OTHER, MEDICAID, SELFPAY | END 2023-01-29 12:43 | disposition home or self-care (01) | LOC: HO.LAB 12:42 | PROVIDERS: PCP Internal Medicine; Visit Provider Nurse Practitioner | DX: K75.81 Nonalcoholic steatohepatitis (NASH) (principal); R74.01 Elevation of levels of liver transaminase levels; E66.01 Morbid (severe) obesity due to excess calories; E11.9 Type 2 diabetes mellitus without complications; R79.89 Other specified abnormal findings of blood chemistry | CPT/HCPCS: 36415; 81256; 99212 ==

== ENCOUNTER 2023-04-02 07:46 | Outpatient (AMB) | payer OTHER, MEDICAID, SELFPAY ==
[2023-04-02 08:19] VITALS: BP 124/72; PULSE 67; TEMP 36.4; O2SAT 94
--- NOTE | 2023-04-02 08:19 | MHC.OFFVIS ---
Intake Vital Signs 04/02/23 08:19 Height 5 ft 4 in BMI Reason not done Patient refused/unable BP 124/72 Blood Pressure Location Rt brachial Position Sitting Pulse 67 Pulse Source Pulse Oximeter Temp 97.6 F Temp Source Skin Pulse Oximetry (%) 94 Comment unable to stand on scale Intake Visit Reasons: Osteoporosis Intake Note: New pt presents today for consult. Her son states she was referred here because of a bone scan. Pt c/o pain in coccyx Medical Lab Tech Instructor Required: Yes Medical Lab Tech Instructor Name: Daniel Chin409 Information Interpreted: clinical only Accompanied by: Daughter Allergies No Known Allergies [No Known Allergies*] Allergy (Verified 04/02/23 08:27) Medication List - Last Reconciled 04/02/23 by Shanice Cid MD [adult diapers pull-ups As directed] amitriptyline 25 mg PO BEDTIME 90 days amlodipine-benazepril 5-10 mg 1 cap PO DAILY 90 days atorvastatin 40 mg PO BEDTIME 90 days blood sugar diagnostic (FreeStyle Lite Strips) Use 1 test strip once a day blood-glucose meter (FreeStyle Lite Meter kit) As directed cholecalciferol (vitamin D3) 250 mcg PO QWEEK 90 days clopidogrel 75 mg PO DAILY disposable gloves As directed dulaglutide (Trulicity) mg subcut fluoxetine 20 mg PO DAILY Gait belt As directed [shakila lift As directed] [incontinence wipes As directed] lancets (FreeStyle Lancets) Use 1 lancet once a day linagliptin (Tradjenta) 5 mg PO DAILY 90 days metoprolol tartrate 50 mg PO BID 90 days montelukast 10 mg PO DAILY 90 days trazodone 100 mg PO BEDTIME underpads (Certainty Underpads) As directed [wheelchair As directed] HPI HPI Comments History of Present Illness Details This is a 58-year-old female who is referred for evaluation of osteoporosis. Recent DEXA scan showed a T-score -2.8. Patient is unaware of any history of fractures. Denies any family history of osteoporosis or fractures. Mentions that she has been having pain in her tailbone. Patient is hemiplegic and wheelchair dependent since she had a stroke a few years ago [facility] Medical History Osteoporosis Wheelchair dependence Essential hypertension Surgical History History of shoulder surgery History of cholecystectomy History of History of knee surgery Family History Mother Breast cancer Hypertension Diabetes Kidney disease Father Heart disease Social History Household Members: Family Housing: Apartment Alcohol intake: current Alcohol intake frequency: holidays/special occasions only Alcohol type: beer and wine Patient Tobacco Use Status: Former Tobacco user Tobacco use type: Cigarette e-Cigarette/Vaping Use: Never Used Second Hand Smoke Exposure: No service: No Current occupational status: unemployed Cognitive needs: Yes Hearing needs: No Vision needs: Yes Female Reproductive History Menstrual Age of Menarche: 8 Total pregnancies: 2 Number of Living Children: 1 Ab spontaneous: 1 Review of Systems Musc Reports back pain Physical Exam Vital Signs: Last Vital Signs Temp 97.6 F 04/02/23 08:19 Pulse 67 04/02/23 08:19 BP 124/72 04/02/23 08:19 Pulse Ox 94 04/02/23 08:19 Const General: cooperative, healthy appearing and comfortable Nutritional Appearance: obese Limitations: wheelchair HEENT Head: Yes normocephalic and Yes atraumatic Mouth: moist mucous membranes Resp Effort & Inspection: normal respiratory effort and able to speak in complete sentences Extrem Other: Left hemiparesis No active synovitis Assessment & Plan Assessment & Plan (1) Osteoporosis: Comment: DEXA 12/2022 L-spine T-score 0.0 Left femoral neck T-score-2.5 Left femur total T-score -2.8 Alendronate started 03/2023 Code(s): M81.0 - Age-related osteoporosis without current pathological fracture Qualifiers: Osteoporosis type: age-related Presence of current pathological fracture: without current pathological fracture Qualified Code(s): M81.0 - Age-related osteoporosis without current pathological fracture Plan: This is a 58-year-old female with hemiplegia was referred for osteoporosis management. There is no known history of fractures. T-score is -2.8 at the hip. Discussed osteoporosis. Discussed risks and benefits of alendronate. Patient agreed to proceed. Will start alendronate 70 mg weekly Continue calcium and vitamin-D Follow-up in 6 months. Repeat DEXA summer (2) Coccygeal pain: Code(s): M53.3 - Sacrococcygeal disorders, not elsewhere classified Plan: Follow-up with PCP Plan I spent 29 minutes reviewing patient's chart, evaluating patient, ordering diagnostic workup, counseling patient and documenting in the chart Medications: New alendronate (Fosamax) Take 1 tab once weekly, 1st thing in the morning, on an empty stomach, with a large glass of water (at least 6 oz) and remain upright for 30 minutes afterwards 70 mg PO QWEEK 12 tabs 1RF Coding Level of Care Code New Pt Level 3 (66974) Diagnoses Age-related osteoporosis without current pathological fracture M81.0 Osteoporosis type: age-related Presence of current pathological fracture: without current pathological fracture Coccygeal pain M53.3
== END 2023-04-02 09:06 | disposition home or self-care (01) ==
PROVIDERS: PCP Internal Medicine; Visit Provider Student in an Organized Health Care Education/Training Program
DX: M81.0 Age-related osteoporosis without current pathological fracture (principal); M53.3 Sacrococcygeal disorders, not elsewhere classified
CPT/HCPCS: 99203

== ENCOUNTER → 2023-04-02 07:46 | Outpatient (BNVA) | payer MEDICARE, MEDICAID, SELFPAY | PROVIDERS: PCP Internal Medicine; Visit Provider Student in an Organized Health Care Education/Training Program ==

== ENCOUNTER 2023-09-02 15:44 | Outpatient (AMB) | payer OTHER, SELFPAY ==
[2023-09-02 15:47] VITALS: BP 126/70
--- NOTE | 2023-09-02 15:47 | A.OFFPC_ITS ---
Vital Signs 09/02/23 15:47 Height 5 ft 4 in BMI Reason not done Patient refused/unable BP 126/70 Blood Pressure Location Lt brachial Position Sitting Intake Visit Reasons: bp,dm,lipids Intake Note: Patient here for a follow up BP, DM, Lipids Sterile Preparation Technician Required: No Accompanied by: Self / Same As Patient Allergies No Known Allergies [No Known Allergies*] Allergy (Verified 09/02/23 16:07) Medication List - Last Reconciled 09/02/23 by Lashon Epps MD [adult diapers pull-ups As directed] alendronate (Fosamax) 70 mg PO QWEEK amitriptyline 25 mg PO BEDTIME 90 days amlodipine-benazepril 5-10 mg 1 cap PO DAILY 90 days atorvastatin 40 mg PO BEDTIME 90 days blood sugar diagnostic (FreeStyle Lite Strips) Use 1 test strip once a day blood-glucose meter (FreeStyle Lite Meter kit) As directed cholecalciferol (vitamin D3) 250 mcg PO QWEEK 90 days clopidogrel 75 mg PO DAILY 90 days disposable gloves As directed dulaglutide (Trulicity) 1.5 mg (0.5 mL) subcut QWEEK 90 days fluoxetine 20 mg PO DAILY Gait belt As directed hospital bed As directed [zelalem lift As directed] [incontinence wipes As directed] lancets (FreeStyle Lancets) Use 1 lancet once a day linagliptin (Tradjenta) 5 mg PO DAILY 90 days metoprolol tartrate 50 mg PO BID 90 days montelukast 10 mg PO DAILY 90 days underpads (Certainty Underpads) As directed [wheelchair bariatric As directed] [wipes As directed] zolpidem (Ambien) 5 mg PO BEDTIME Tobacco use date assessed: 09/02/23 Dental Screening Dental Screen Date: 09/02/23 Did you have a dental visit in the last 12 months?: No Did you have a dental problem in the last 6 months where you did not have access to dental care?: No Was dental information given to patient?: Patient has dentist HPI HPI Comments History of Present Illness Details This is a 58-year-old female with diabetes mellitus type 2, hypertension, stroke in 2018 with left hemiplegia as residual deficit and moderate recurrent major depression that comes today accompanied by credit or loans officer for follow-up on her conditions. She is wheelchair dependent due to her left hemiplegia. A1c within goal. Blood pressure stable. LDL should be less than 70 and lipid panel will be order. She is morbidly obese and was advised to diet and exercise. Depression somewhat stable with SSRIs. No chest pain or shortness of breath. [facility] Medical History Poorly controlled diabetes mellitus Osteoporosis Wheelchair dependence Essential hypertension Surgical History History of shoulder surgery History of cholecystectomy History of History of knee surgery Family History Mother Breast cancer Hypertension Diabetes Kidney disease Father Heart disease Social History Household Members: Family Housing: Apartment Alcohol intake: current Alcohol intake frequency: holidays/special occasions only Alcohol type: beer and wine Patient Tobacco Use Status: Former Tobacco user Tobacco use type: Cigarette e-Cigarette/Vaping Use: Never Used Second Hand Smoke Exposure: No service: No Current occupational status: unemployed Cognitive needs: Yes Hearing needs: No Vision needs: Yes Female Reproductive History Menstrual Age of Menarche: 8 Questionnaire PHQ-9 Over the last 2 weeks, how often have you been bothered by any of the following problems? 1. Little interest or pleasure in doing things: not at all 2. Feeling down, depressed, or hopeless: not at all 3. Trouble falling or staying asleep, or sleeping too much: several days 4. Feeling tired or having little energy: not at all 5. Poor appetite or overeating: several days 6. Feeling bad about yourself - or that you are a failure or have let yourself or your family down: not at all 7. Trouble concentrating on things, such as reading the newspaper or watching television: not at all 8. Moving or speaking so slowly that other people could have noticed. Or the opposite - being so fidgety or restless that you have been moving around a lot more than usual: not at all 9. Thoughts that you would be better off or of hurting yourself in some way: not at all Total score: 2 Depression Screening Interpretation: Negative Depression Screening Done: Yes 91846 - PHQ-9 Billing: Yes Source: Developed by Drs. George Loredo, Carlos Mathew and colleagues, with an educational yanelis from [employer]. Thrive Questionnaire Date Thrive assessed: 09/02/23 I am a: Patient What is your living situation today?: I have a steady place to live Within the past 12 months, did the food you bought not last and you didn't have the money to get more?: Never true Within the past 12 months, did you worry whether your food would run out before you got money to buy more?: Never true Do you have trouble paying for medicines?: No Do you have trouble getting transportation to medical appointments?: No Do you have trouble paying your heating and electricity bill?: No Do you have trouble taking care of your child, family member or friend?: No Do you have trouble with day-to-day activities such as bathing, preparing meals, shopping, managing finances, etc.?: Yes Are you currently unemployed and looking for a job?: No Are you interested in more education?: No Please select the resources that you would like help with: None Currently or been in a relationship where the following occur: no concerns reported THRIVE Score: 0 AUDIT C Alcohol Use Questionnaire (AUDIT-C) 1. How often do you have a drink containing alcohol?: Never Total Score: 0 CIERRA-7 AMB Questionnaire CIERRA-7 Date CIERRA - 7 assessed: 09/02/23 Feeling nervous, anxious, or on edge: 1 = Several days Not being able to stop or control worryin = Not at all Worrying too much about different things: 0 = Not at all Trouble relaxin = Not at all Being so restless that it is hard to sit still: 0 = Not at all Becoming easily annoyed or irritable: 0 = Not at all Feeling afraid as if something awful might happen: 0 = Not at all Total CIERRA-7 score (0-4 normal; 5-9 mild; 10-14 moderate; 15-21 severe): 1 Source: Developed by Dolly Kincaid Kurt Kroenke and colleagues, with an educational yanelis from [employer]. CIERRA-7 Assessment Billing CIERRA-7 Assessment Tool: CIERRA-7 Assessment 83369 Review of Systems Const All systems reviewed & are unremarkable except as noted in HPI and below Eyes Reports no additional complaints, Denies change in vision and Denies other visual disturbances ENT Denies change in voice, Denies nasal discharge and Denies sinus pain Card Denies chest pain at rest, Denies chest pain with activity, Denies edema, Denies irregular heart rhythm, Denies claudication, Denies dyspnea, Denies dyspnea on exertion, Denies orthopnea, Denies paroxysmal nocturnal dyspnea and Denies slow heart rate Resp Denies cough, Denies dyspnea and Denies dyspnea on exertion GI Denies abdominal pain, Denies change in bowel habits, Denies excessive flatus, Denies nausea and Denies vomiting Denies urinary incontinence, Denies urinary hesitancy and Denies urinary urgency Musc Denies atrophy, Denies deformity and Denies limited range of motion Physical exam (Primary Care) Vital Signs: Last Vital Signs BP 126/70 09/02/23 15:47 Tobacco/Smoking Status: Tobacco use Status Tobacco use date assessed 09/02/23 09/02/23 15:59 Patient Tobacco Use Status Former Tobacco user 09/02/23 15:49 Tobacco use type Cigarette 09/02/23 15:49 e-Cigarette/Vaping Use Never Used 09/02/23 15:49 PHQ-9: PHQ-9 Score PHQ-9: Total score 2 09/02/23 16:12 Depression Screening Interpretation: Negative Thrive Assessment: Date of Thrive Assessment Date Thrive assessed 09/02/23 09/02/23 15:59 Currently or been in a relationship where the following occur: no concerns reported Const Limitations: wheelchair Eyes General: appearance normal, both eyes and all related structures Eyelids: Yes eyelids normal Conjunctivae: conjunctivae normal Neck Neck: Yes normal visual inspection and Yes supple Resp Effort & Inspection: normal respiratory effort Auscultation: clear to auscultation bilaterally Cardio Jugular venous distension: no JVD Rate: regular rate Rhythm: regular rhythm Heart sounds: S1 normal heart sound present and S2 normal heart sound present Neuro Other: left hemiplegia 1/5 in upper and lower limbs Extrem General: Yes full ROM Results AMB Hemoglobin A1c AMB Hemoglobin A1c 6.1 % Last Edit by JOE Lovelace on 09/02/23 16:1 7 Assessment and Plan Assessment & Plan (1) Essential hypertension: Code(s): I10 - Essential (primary) hypertension Plan: Continue amlodipine-benazepril. Blood pressure goal is equal or less than 130/80. (2) Morbid obesity: Code(s): E66.01 - Morbid (severe) obesity due to excess calories Plan: Start diet and exercise. BMI goal is less than 30. (3) Moderate recurrent major depression: Code(s): F33.1 - Major depressive disorder, recurrent, moderate Plan: Continue amitriptyline. (4) Left hemiplegia: Code(s): G81.94 - Hemiplegia, unspecified affecting left nondominant side Plan: Continue the use of wheelchair. Needs hospital bed and Zelalem lift. (5) Stroke: Comment: 2018 Code(s): I63.9 - Cerebral infarction, unspecified Plan: Continue statins. Keep LDL less than 70. Keep blood pressure less than 130/80. (6) Diabetes mellitus: Code(s): E11.9 - Type 2 diabetes mellitus without complications Plan: Continue Trulicity and Tradjenta. A1c goal is equal or less than 7%. Orders: Orders Lipid Panel Today E78.5 - Hyperlipidemia, unspecified Vitamin D 25-OH Total Today E55.9 - Vitamin D deficiency, unspecified IRON PROFILE Today D64.9 - Anemia, unspecified, R79.89 - Other specified abnormal findings of blood chemistry AMB Hemoglobin A1c Today E11.9 - Type 2 diabetes mellitus without complications Comprehensive Cushing. Panel Fast Today E11.65 - Type 2 diabetes mellitus with hyperglycemia Complete Blood Count Auto Diff Today D64.9 - Anemia, unspecified, R79.89 - Other specified abnormal findings of blood chemistry Protein Electrophoresis, Serum Today R77.8 - Other specified abnormalities of plasma proteins Medications: New TENS unit electrodes As directed 4 ea 3RF M53.3 - Sacrococcygeal disorders, not elsewhere classified Coding Level of Care Code Est Pt Level 4 (22662) Diagnoses Essential hypertension I10 Morbid obesity E66.01 Moderate recurrent major depression F33.1 Left hemiplegia G81.94 Stroke I63.9 Diabetes mellitus E11.9 Additional Codes CIERRA-7 Assessment Billing - CIERRA-7 Assessment Tool: CIERRA-7 Assessment 97069 ([id number]) Time Spent (min) 25
== END 2023-09-02 16:15 | disposition home or self-care (01) ==
PROVIDERS: PCP Internal Medicine; Visit Provider Internal Medicine
DX: E11.9 Type 2 diabetes mellitus without complications (principal); F33.1 Major depressive disorder, recurrent, moderate; G81.94 Hemiplegia, unspecified affecting left nondominant side; E66.01 Morbid (severe) obesity due to excess calories; I10 Essential (primary) hypertension
CPT/HCPCS: 83036; 99214

== ENCOUNTER 2023-11-28 11:29 | Outpatient (AMB) | payer OTHER, MEDICAID, SELFPAY ==
--- NOTE | 2023-11-28 11:32 | MHC.OFFVIS ---
Vital Signs 11/28/23 11:34 Height 5 ft 4 in BMI Reason not done Patient refused/unable BP 120/82 Blood Pressure Location Rt radial Position Sitting Pulse 74 Pulse Oximetry (%) 93 Comment unable to stand on scale Intake Visit Reasons: osteoporosis Intake Note: Patient last seen 04/02/23, presents today for follow up. 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 Name: August [id number] Accompanied by: Son Allergies No Known Allergies [No Known Allergies*] Allergy (Verified 11/28/23 11:43) Medication List - Last Reconciled 11/28/23 by Shanice Cid MD [adult diapers pull-ups As directed] alendronate 70 mg (75 mL) PO QWEEK amitriptyline 25 mg PO BEDTIME 90 days amlodipine-benazepril 5-10 mg 1 cap PO DAILY 90 days atorvastatin 40 mg PO BEDTIME 90 days blood sugar diagnostic (FreeStyle Lite Strips) Use 1 test strip once a day blood-glucose meter (FreeStyle Lite Meter kit) As directed cholecalciferol (vitamin D3) 250 mcg PO QWEEK 90 days clopidogrel 75 mg PO DAILY 90 days disposable gloves As directed dulaglutide (Trulicity) 0.75 mg (0.5 mL) subcut QWEEK 90 days dulaglutide (Trulicity) 1.5 mg (0.5 mL) subcut QWEEK 90 days fluoxetine 20 mg PO DAILY Gait belt As directed hospital bed As directed [shakila lift electric As directed] [incontinence wipes As directed] lancets (FreeStyle Lancets) Use 1 lancet once a day linagliptin (Tradjenta) 5 mg PO DAILY 90 days metoprolol tartrate 50 mg PO BID 90 days montelukast 10 mg PO DAILY 90 days TENS unit electrodes As directed underpads (Certainty Underpads) As directed [wheelchair bariatric As directed] [wipes As directed] zolpidem (Ambien) 5 mg PO BEDTIME HPI Comments Details: 58-year-old female with osteoporosis returns for follow-up. She is here with her son. Patient could not tolerate oral alendronate tablets, I switched her to with alendronate and she seems to tolerate it well since 09/2023. She has no complaints today. Initial history: This is a 58-year-old female who is referred for evaluation of osteoporosis. Recent DEXA scan showed a T-score -2.8. Patient is unaware of any history of fractures. Denies any family history of osteoporosis or fractures. Mentions that she has been having pain in her tailbone. Patient is hemiplegic and wheelchair dependent since she had a stroke a few years ago [facility] Medical History Poorly controlled diabetes mellitus Osteoporosis Wheelchair dependence Essential hypertension Surgical History History of shoulder surgery History of cholecystectomy History of History of knee surgery Family History Mother Breast cancer Hypertension Diabetes Kidney disease Father Heart disease Social History Household Members: Family Housing: Apartment Alcohol intake: current Alcohol intake frequency: holidays/special occasions only Alcohol type: beer and wine Patient Tobacco Use Status: Former Tobacco user Tobacco use type: Cigarette e-Cigarette/Vaping Use: Never Used Second Hand Smoke Exposure: No service: No Current occupational status: unemployed Cognitive needs: Yes Hearing needs: No Vision needs: Yes Female Reproductive History Menstrual Age of Menarche: 8 Review of Systems Const All systems reviewed & are unremarkable except as noted in HPI and below Physical Exam Vital Signs: Last Vital Signs Pulse 74 11/28/23 11:34 BP 120/82 11/28/23 11:34 Pulse Ox 93 11/28/23 11:34 Const General: cooperative, healthy appearing and comfortable Nutritional Appearance: obese Limitations: wheelchair HEENT Head: Yes normocephalic and Yes atraumatic Mouth: moist mucous membranes Resp Effort & Inspection: normal respiratory effort and able to speak in complete sentences Extrem Other: Left hemiparesis No active synovitis Assessment & Plan Assessment & Plan (1) Osteoporosis: Comment: DEXA 12/2022 L-spine T-score 0.0 Left femoral neck T-score-2.5 Left femur total T-score -2.8 Alendronate started 03/2023. Couldn't tolerate PO. liquid alendronate well tolerated 09/2023 Code(s): M81.0 - Age-related osteoporosis without current pathological fracture Category: Medical Qualifiers: Osteoporosis type: age-related Presence of current pathological fracture: without current pathological fracture Qualified Code(s): M81.0 - Age-related osteoporosis without current pathological fracture Plan: This is a 58-year-old female with hemiplegia was referred for osteoporosis management. There is no known history of fractures. Patient could not tolerate p.o. alendronate tablets but is able to tolerate liquid alendronate well. Continue with liquid alendronate 75 mg weekly. Continue calcium and vitamin-D Labs before next visit in 1 year. Plan to repeat DEXA spring Plan I spent 15 minutes reviewing patient's chart, evaluating patient, ordering diagnostic workup, counseling patient and documenting in the chart Orders: Orders Basic Metabolic Panel 1 Year M81.0 - Age-related osteoporosis without current pathological fracture Vitamin D 25-OH (D2 and D3) 1 Year E55.9 - Vitamin D deficiency, unspecified Coding Level of Care Code Est Pt Level 3 (97018) Diagnoses Age-related osteoporosis without current pathological fracture M81.0 Osteoporosis type: age-related Presence of current pathological fracture: without current pathological fracture
[2023-11-28 11:34] VITALS: BP 120/82; PULSE 74; O2SAT 93
== END 2023-11-28 11:58 | disposition home or self-care (01) ==
PROVIDERS: PCP Internal Medicine; Visit Provider Student in an Organized Health Care Education/Training Program
DX: M81.0 Age-related osteoporosis without current pathological fracture (principal)
CPT/HCPCS: 99213

== ENCOUNTER 2023-11-28 11:29 | Outpatient (REF) | payer OTHER, SELFPAY ==
[2023-11-28 12:50] LABS: MANUAL DIFF FLAG NO
[2023-11-28 13:36] LABS: Basophils Absolute Auto 0.1 X10*3/uL (0.0-0.2); Basophils Percent Auto 0.8 % (0-2); Eosinophils Absolute Auto 0.5 X10*3/uL (0.0-0.4); Eosinophils Percent Auto 4.6 % (0-4); Hematocrit 44.8 % (37.0-47.0); Imm Gran Abs Auto 0.04 X10*3/uL (0.00-0.03); Imm Gran Pct Auto 0.3 % (0.0-0.4); Lymphocytes Absolute Auto 3.3 X10*3/uL (1.2-4.9); Lymphocytes Percent Auto 28.6 % (20-40); Mean Corpuscular HGB Conc 31.3 g/dl (31.0-35.0); Mean Corpuscular Hemoglobin 27.8 pg (27.0-33.0); Mean Corpuscular Volume 89.1 fL (80.0-98.0); Mean Platelet Volume 10.8 fL (9.4-12.3); Monocytes Absolute Auto 0.8 X10*3/uL (0.1-1.2); Monocytes Percent Auto 6.8 % (2-11); Neutrophils Absolute Auto 6.8 x10*3/uL (2.0-8.3); Neutrophils Percent Auto 58.9 % (45-73); Platelet Count 324 X10*3/uL (160-400); Red Blood Count 5.03 X10*6/uL (4.20-5.50); Red Cell Distribution Width 14.7 % (11.0-16.0); White Blood Count 11.5 X10*3/uL (4.8-10.8)
[2023-11-28 14:16] LABS: Alanine Aminotransferase 72 U/L (0-31); Alkaline Phosphatase 90 U/L (39-117); Anion Gap 14 (12-20); Aspartate Amino Transferase 49 U/L (5-31); Bilirubin Total 0.4 mg/dL (0.0-1.0); Blood Urea Nitrogen 9 mg/dL (9-16); Calcium 9.9 mg/dL (8.4-10.2); Carbon Dioxide 24 mmol/L (22-29); Chloride 106 mmol/L (96-108); Cholesterol 164 mg/dL (<200); Estimated Glomerular Filt Rate > 60; Glucose Fasting 171 mg/dL (60-99); HDL Cholesterol 43 mg/dL (>40); Iron 61 mcg/dL (30-160); LDL Cholesterol Calculated 95 mg/dL (<100); Percent Iron Saturation 23 % (15-50); Sodium 140 mmol/L (135-145); Total Iron Binding Capacity 263 mcg/dL (228-428); Total Protein 8.5 g/dL (6.5-8.0); Triglycerides 134 mg/dL (<150); Unsaturated Iron Binding 202 ug/dL; Vitamin D 25-OH Total 33.3 ng/mL (>30)
[2023-11-29 22:28] LABS: Prot Elec - Albumin 3.9 g/dL (3.8-4.8); Prot Elec - Alpha1 0.3 g/dL (0.2-0.3); Prot Elec - Alpha2 0.8 g/dL (0.5-0.9); Prot Elec - Beta 1 0.6 g/dL (0.4-0.6); Prot Elec - Beta 2 0.7 g/dL (0.2-0.5); Prot Elec - Gamma 1.9 g/dL (0.8-1.7); Prot Elec - Total Protein 8.2 g/dL (6.1-8.1)
== END 2023-11-28 11:30 | disposition home or self-care (01) ==
LOC: HO.LAB 11:29
PROVIDERS: Absent Provider Internal Medicine; PCP Internal Medicine; Visit Provider Student in an Organized Health Care Education/Training Program
DX: M81.0 Age-related osteoporosis without current pathological fracture (principal); E78.5 Hyperlipidemia, unspecified; D64.9 Anemia, unspecified; R79.89 Other specified abnormal findings of blood chemistry; E55.9 Vitamin D deficiency, unspecified; E11.65 Type 2 diabetes mellitus with hyperglycemia; R77.8 Other specified abnormalities of plasma proteins
CPT/HCPCS: 36415; 80053; 80061; 82306; 83540; 84165; 85025; 99212

== ENCOUNTER → 2024-02-03 12:46 | Outpatient (BNV) | payer OTHER, SELFPAY | PROVIDERS: PCP Internal Medicine; Referring Provider Internal Medicine; Visit Provider Internal Medicine | DX: R77.8 Other specified abnormalities of plasma proteins (principal) | CPT/HCPCS: 99204; 99213 ==

== ENCOUNTER 2024-05-27 16:30 | Outpatient (AMB) | payer OTHER, SELFPAY ==
--- NOTE | 2024-05-27 16:35 | A.OFFPC_ITS ---
Vital Signs 05/27/24 16:37 Height 5 ft 3 in BMI Reason not done Patient refused/unable BP 136/82 Blood Pressure Location Lt brachial Position Sitting Intake Visit Reasons: annual exam Intake Note: Patient here for a physical exam, PT request, Dermatology referral, Labs [employer] Required: No Accompanied by: Self / Same As Patient Allergies No Known Allergies [No Known Allergies*] Allergy (Verified 05/27/24 16:55) Medication List - Last Reconciled 05/27/24 by Lashon Epps MD [adult diapers pull-ups As directed] alendronate 70 mg (75 mL) PO QWEEK amitriptyline 25 mg PO BEDTIME 90 days amlodipine-benazepril 5-10 mg 1 cap PO DAILY 90 days atorvastatin 40 mg PO BEDTIME 90 days blood sugar diagnostic (FreeStyle Lite Strips) Use 1 test strip once a day blood-glucose meter (FreeStyle Lite Meter kit) As directed cholecalciferol (vitamin D3) 25 mcg PO DAILY 90 days clopidogrel 75 mg PO DAILY 90 days disposable gloves As directed dulaglutide (Trulicity) 1.5 mg (0.5 mL) subcut QWEEK 90 days fluoxetine 20 mg PO DAILY Gait belt As directed hospital bed As directed [shakila lift electric As directed] [incontinence wipes As directed] lancets (FreeStyle Lancets) Use 1 lancet once a day linagliptin (Tradjenta) 5 mg PO DAILY 90 days metoprolol tartrate 50 mg PO BID 90 days montelukast 10 mg PO DAILY 90 days TENS unit electrodes As directed underpads (Certainty Underpads) As directed [wheelchair bariatric As directed] [wipes As directed] zolpidem (Ambien) 5 mg PO BEDTIME Tobacco use date assessed: 09/02/23 Dental Screening Dental Screen Date: 05/27/24 Did you have a dental visit in the last 12 months?: No Did you have a dental problem in the last 6 months where you did not have access to dental care?: No Was dental information given to patient?: Patient has dentist HPI HPI Comments History of Present Illness Details The patient is a 59-year-old female presenting for a routine physical examination. She has a history of osteoporosis, for which she has been taking alendronate 70 mg weekly since a 2022 bone densitometry showed the need for treatment. She is followed by rheumatology for management. Her medication regimen includes amitriptyline, amlodipine with benazepril, atorvastatin, vitamin D, clopidogrel, dulaglutide (Trulicity) weekly, fluoxetine, and linagliptin (Trajenta) for her chronic conditions. She also takes metoprolol, montelukast, and zolpidem for various health concerns. Past surgical history includes bilateral knee surgeries, right shoulder surgery in 2014, cholecystectomy, and section. Her last laboratory work in November revealed an LDL cholesterol level within target, less than 70 mg/dL. Her recent HbA1c was stable, although blood glucose levels two weeks to three months ago were reportedly elevated. Significant family history includes a mother with diabetes and breast cancer. She does not have a smoking history and consumes alcohol occasionally. The patient also refuses colonoscopy but is interested in completing at-home colorectal cancer testing (Cologuard). - Last mammogram completed the previous year; another one is scheduled for this year. - Recommends completing an at-home color ectal cancer screening with Cologuard. - Bone densitometry is scheduled for . - Referral to an apprentice instrument technician is shama cated as the last eye examination was over two years ago. [facility] Medical History (Updated 05/27/24 @ 17:10 by Lashon Epps MD) Poorly controlled diabetes mellitus Osteoporosis Wheelchair dependence Essential hypertension Surgical History (Updated 05/27/24 @ 17:00 by Lashon Epps MD) History of shoulder surgery History of cholecystectomy History of History of knee surgery Family History Mother Breast cancer Hypertension Diabetes Kidney disease Father Heart disease Social History Household Members: Family Housing: Apartment Alcohol intake: current Alcohol intake frequency: holidays/special occasions only Alcohol type: beer and wine Patient Tobacco Use Status: Former Tobacco user Tobacco use type: Cigarette e-Cigarette/Vaping Use: Never Used Second Hand Smoke Exposure: No service: No Current occupational status: unemployed Cognitive needs: Yes Hearing needs: No Vision needs: Yes Female Reproductive History Menstrual Age of Menarche: 8 Questionnaire PHQ-9 Over the last 2 weeks, how often have you been bothered by any of the following problems? 1. Little interest or pleasure in doing things: not at all 2. Feeling down, depressed, or hopeless: not at all 3. Trouble falling or staying asleep, or sleeping too much: not at all 4. Feeling tired or having little energy: not at all 5. Poor appetite or overeating: not at all 6. Feeling bad about yourself - or that you are a failure or have let yourself or your family down: not at all 7. Trouble concentrating on things, such as reading the newspaper or watching television: not at all 8. Moving or speaking so slowly that other people could have noticed. Or the opposite - being so fidgety or restless that you have been moving around a lot more than usual: not at all 9. Thoughts that you would be better off or of hurting yourself in some way: not at all Total score: 0 Depression Screening Interpretation: Negative Depression Screening Done: Yes 86621 - PHQ-9 Billing: Yes Source: Developed by Drs. George Loredo, Dolly Waters, Carlos Celis and colleagues, with an educational yanelis from [employer]. Thrive Questionnaire Date Thrive assessed: 09/02/23 I am a: Patient What is your living situation today?: I do not have a steady places to live I am temporarily staying with others Within the past 12 months, did the food you bought not last and you didn't have the money to get more?: I choose not to answer this question Within the past 12 months, did you worry whether your food would run out before you got money to buy more?: I choose not to answer this question Do you have trouble paying for medicines?: No Do you have trouble getting transportation to medical appointments?: I choose not to answer this question Do you have trouble paying your heating and electricity bill?: I choose not to answer this question Do you have trouble taking care of your child, family member or friend?: I choose not to answer this question Do you have trouble with day-to-day activities such as bathing, preparing meals, shopping, managing finances, etc.?: I choose not to answer this question Are you currently unemployed and looking for a job?: I choose not to answer this question Are you interested in more education?: I choose not to answer this question Please select the resources that you would like help with: Housing/Long Term Currently or been in a relationship where the following occur: No concerns reported THRIVE Score: 1 AUDIT C Alcohol Use Questionnaire (AUDIT-C) 1. How often do you have a drink containing alcohol?: Never Total Score: 0 Score Reviewed/Action Taken: No CIERRA-7 AMB Questionnaire CIERRA-7 Date CIERRA - 7 assessed: 09/02/23 Feeling nervous, anxious, or on edge: 0 = Not at all Not being able to stop or control worryin = Not at all Worrying too much about different things: 0 = Not at all Trouble relaxin = Several days Being so restless that it is hard to sit still: 0 = Not at all Becoming easily annoyed or irritable: 0 = Not at all Feeling afraid as if something awful might happen: 0 = Not at all Total CIERRA-7 score (0-4 normal; 5-9 mild; 10-14 moderate; 15-21 severe): 1 Source: Developed by Drs. George Loredo, Dolly Waters, Carlos Celis and colleagues, with an educational yanelis from [employer]. CIERRA-7 Assessment Billing CIERRA-7 Assessment Tool: CIERRA-7 Assessment 29484 Review of Systems Card Denies chest pain at rest, Denies chest pain with activity, Denies edema, Denies irregular heart rhythm, Denies claudication, Denies dyspnea, Denies dyspnea on exertion, Denies orthopnea, Denies paroxysmal nocturnal dyspnea and Denies slow heart rate Resp Denies cough, Denies dyspnea and Denies dyspnea on exertion Physical exam (Primary Care) Vital Signs: Last Vital Signs BP 136/82 05/27/24 16:37 Tobacco/Smoking Status: Tobacco use Status Tobacco use date assessed 09/02/23 05/27/24 16:47 Patient Tobacco Use Status Former Tobacco user 05/27/24 16:47 Tobacco use type Cigarette 05/27/24 16:47 e-Cigarette/Vaping Use Never Used 05/27/24 16:47 PHQ-9: PHQ-9 Score PHQ-9: Total score 0 05/27/24 16:57 Depression Screening Interpretation: Negative Thrive Assessment: Date of Thrive Assessment Date Thrive assessed 09/02/23 05/27/24 16:47 Currently or been in a relationship where the following occur: No concerns reported Const General: cooperative Limitations: wheelchair HENMT Head: Yes normal to inspection, Yes normocephalic and Yes atraumatic Ears: external ears normal Eyes General: appearance normal, both eyes and all related structures Eyelids: Yes eyelids normal Conjunctivae: conjunctivae normal Neck Neck: Yes normal visual inspection and Yes supple Resp Effort & Inspection: normal respiratory effort Auscultation: clear to auscultation bilaterally Cardio Jugular venous distension: no JVD Rate: regular rate Rhythm: regular rhythm Heart sounds: S1 normal heart sound present and S2 normal heart sound present GI Inspection: Yes normal to inspection Palpation (GI): Soft to palpation and nontender Auscultation: normal bowel sounds Neuro Motor exam (neuro): Abnormal motor strength present (left 1/5, right 5/5) Psych Appearance: grossly normal Office Procedures Flu Questionnaire Does the patient have a severe egg allergy?: No Results AMB Hemoglobin A1c AMB Hemoglobin A1c 8.9 % Last Edit by JOE Lovelace on 05/27/24 16:5 1 Immunizations Fluarix Triv [id number] (PF) 45 mcg (15 mcg x 3)/0.5 mL IM syringe Performing Provider: Lashon Epps MD [place] [facility] [place] [facility] Documented (not given) by: JOE Lovelace on 05/27/24 16:47 Reason Not Given: Patient Refused Results Reviewed Results Reviewed: Laboratory Last Values Hgb A1c (Clinic) 8.9 % (4.0-6.0) H 05/27/24 16:35 Coding Level of Care Code Est Pt Level 3 (90309) Est Pt Prev Care 40-64y(40112) Diagnoses Physical exam Z00.00 Left hemiplegia G81.94 Stroke I63.9 Diabetes mellitus E11.9 Moderate recurrent major depression F33.1 Dry skin L85.3 Additional Codes CIERRA-7 Assessment Billing - CIERRA-7 Assessment Tool: CIERRA-7 Assessment 22439 ([id number]) PHQ-9 - 72916 - PHQ-9 Billing: Yes ([id number]) Time Spent (min) 35 Assessment & Plan Assessment & Plan (1) Physical exam: Code(s): Z00.00 - Encounter for general adult medical examination without abnormal findi ngs Category: Medical (2) Left hemiplegia: Code(s): G81.94 - Hemiplegia, unspecified affecting left nondominant side Category: Medical (3) Stroke: Comment: 2018 Code(s): I63.9 - Cerebral infarction, unspecified Category: Medical (4) Diabetes mellitus: Code(s): E11.9 - Type 2 diabetes mellitus without complications Category: Medical (5) Moderate recurrent major depression: Code(s): F33.1 - Major depressive disorder, recurrent, moderate Category: Medical (6) Dry skin: Code(s): L85.3 - Xerosis cutis Category: Medical Plan 1. Plan eye examination.: She has appt for next month. Patient was informed and verbally consented to the use of an ambient scribe for clinic note documentation during this visit. During the visit, we discussed the management of the patient's chronic conditions, including her osteoporosis, hypertension, hyperlipidemia, depression with anxiety, and type 2 diabetes mellitus. The patient is adhered to her current medication regimen and understands the importance of continuing her therapy for effective management. The benefits and the importance of completing preventive screening tests, such as mammography and at-home colorectal cancer screening (Cologuarommel), were explained, emphasizing early detection and intervention. We mutually agreed on the need to arrange a referral to the apprentice instrument technician, as it has been more than two years since her last eye examination. She consented to these plans, and no additional treatments or interventions were indicated during this session. Orders: Orders Influenza [id number] Immunization Today Z23 - Encounter for immunization AMB Hemoglobin A1c Today E11.9 - Type 2 diabetes mellitus without complications PT Evaluation and Treatment Today G81.94 - Hemiplegia, unspecified affecting left nondominant side, I63.9 - Cerebral infarction, unspecified, Z99.3 - Dependence on wheelchair MM tomosynthesis screening BI Today Z12.31 - Encounter for screening mammogram for malignant neoplasm of breast Referrals Dermatology Referral L85.3 - Xerosis cutis Medications: New dulaglutide (Trulicity) 3 mg (0.5 mL) subcut QWEEK 2.5 mL 6RF 30 days empagliflozin (Jardiance) 10 mg PO DAILY 90 tabs 0RF 90 days Discontinued dulaglutide (Trulicity) Discontinued Reason: Patient Completed Course 1.5 mg (0.5 mL) subcut QWEEK 90 days 6.5 mL 0RF E11.65 - Type 2 diabetes mellitus with hyperglycemia linagliptin (Tradjenta) Discontinued Reason: Patient Completed Course 5 mg PO DAILY 90 days 90 tabs 0RF Patient Instructions: - Continue your current medication regimen as prescribed. - Schedule a mammogram within this year. - Complete the at-home colorectal cancer screening (Cologuard) as discussed. - Arrange an appointment with an apprentice instrument technician for an eye examination. - Monitor blood glucose levels and maintain dietary compliance. - Report any new or worsening symptoms promptly.
[2024-05-27 16:37] VITALS: BP 136/82
== END 2024-05-27 17:12 | disposition home or self-care (01) ==
PROVIDERS: PCP Internal Medicine; Visit Provider Internal Medicine
DX: Z00.00 Encounter for general adult medical examination without abnormal findings (principal); G81.94 Hemiplegia, unspecified affecting left nondominant side; I63.9 Cerebral infarction, unspecified; E11.9 Type 2 diabetes mellitus without complications; F33.1 Major depressive disorder, recurrent, moderate; L85.3 Xerosis cutis; Z23 Encounter for immunization

== ENCOUNTER → 2024-05-27 16:30 | Outpatient (BNVA) | payer OTHER, SELFPAY | PROVIDERS: PCP Internal Medicine; Visit Provider Internal Medicine | DX: Z00.01 Encounter for general adult medical examination with abnormal findings (principal); G81.94 Hemiplegia, unspecified affecting left nondominant side; I63.9 Cerebral infarction, unspecified; E11.9 Type 2 diabetes mellitus without complications; F33.1 Major depressive disorder, recurrent, moderate; L85.3 Xerosis cutis | CPT/HCPCS: 83036; 96127; 99212; 99396 ==

== ENCOUNTER 2024-06-24 13:23 | Outpatient (AMB) | payer OTHER, SELFPAY ==
--- NOTE | 2024-06-24 13:24 | A.OFFVIS_ITS ---
Vital Signs 06/24/24 13:31 Height 5 ft 3 in BMI Reason not done Patient refused/unable BP 124/79 Blood Pressure Location Rt radial Position Sitting Pulse 71 Comment Wheelchair bound Intake Visit Reasons: follow up POWERS Intake Note: Patient returns in follow up of POWERS and DNA Analysis Hemochromatosis. CC: Patient's son states that the patient received the cologuard test but has not done it because the need to go over the instructions again. Denies other GI symptoms. Landscape Engineer Required: Yes Accompanied by: Son/BIOPHYSICS TEACHER Allergies No Known Allergies [No Known Allergies*] Allergy (Verified 06/24/24 13:36) HPI HPI follow up POWERS: Details: Assessment & Plan (1) POWERS (nonalcoholic steatohepatitis): Comment: Baseline Laboratory Tests 07/17/22 Estimated GFR > 60 Hgb A1c (Clinic) 8.2 H Total Bilirubin 0.7 AST 87 H ALT 68 H Alkaline Phosphatase 94 12/05/22 Plt Count 327 Estimated GFR > 60 Hgb A1c (Clinic) Hemoglobin A1c % 9.4 Total Bilirubin 0.7 AST 87 H ALT 68 H Alkaline Phosphatase 94 Ferritin 579 H GGT 91 H. Alpha Fetoprotein 3.3 LASHON Screen NEGATIVE Hgb A1c (Clinic) 7.3 H Anti-Mitochondrial Ab NEGATIVE Anti-Smooth Muscle Ab <20 Hepatitis A IgM Ab Nonreactive Hep Bs Antigen Negative Hep Bs Antibody NONREACTIVE Hep B Core Total Ab Nonreactive Hepatitis C Ab (EIA) Nonreactive HIV 1&2 Ab/P24 Ag 4thGn Nonreactive ULTRASOUND OF THE ABDOMEN WITH ELASTOGRAPHY 01/22/23 (F-3 CURRENT LABS ULTRASOUND OF THE ABDOMEN WITH ELASTOGRAPHY IMPRESSION: ? 1. There is hepatomegaly. ? 2. There is generalized increase in hepatic echotexture, consistent with fatty infiltration or hepatocellular disease. Please correlate clinically. No focal hepatic mass or intrahepatic biliary dilatation is seen. ? 3. Liver elastography:? Measurements are suggestive of compensated advanced chronic liver disease but need further test for confirmation. ? 4. Technically limited ultrasound examination the pancreas. ? 5. The gallbladder is surgically absent. Code(s): K75.81 - Nonalcoholic steatohepatitis (POWERS) Plan: [place] #[id number], [place] She is accompanied by male family member who is supportive. I explained all of the findings and it does seem clear that this is related to POWERS her fatty liver syndrome. She is morbidly obese and wheelchair-bound so although weight loss is difficult I do encourage her to try to lose at least 10- 15% for her best liver helpful... She is also diabetic and in the past had poor glycemic control but this has improved dramatically since last summer. My only lingering concern is her elevated ferritin and I would like to do a hemochromatosis genetic screen to make sure this is not a contributing factor. I did senior vice president & general counsel her that she does not need to change any of her medication habits only to avoid taking any oral iron supplementation. She shares me that she does not take this. She also does not drink alcohol. Return office visit in 6 months. (2) Transaminitis: Comment: Baseline Laboratory Tests 07/17/22 Estimated GFR > 60 Hgb A1c (Clinic) 8.2 H Total Bilirubin 0.7 AST 87 H ALT 68 H Alkaline Phosphatase 94 Code(s): R74.01 - Elevation of levels of liver transaminase levels (3) Morbid obesity: Code(s): E66.01 - Morbid (severe) obesity due to excess calories (4) Diabetes mellitus: Code(s): E11.9 - Type 2 diabetes mellitus without complications Orders: Orders DNA Analysis Hemochromatosis Today R74.01 - Elevation of levels of liver transaminase levels, R79.89 - Other specified abnormal findings of blood chemistry LABS:Hemochromatosis screen was negative ? TODAY'S VISIT [place] #Lashon Live She is here today with a male family member who is supportive. She seems to continues to struggle with her diabetes control and weight as she admits to eating a lot of raisin bran and rice and her A1C, she thinks was 8%. I again emphasize that wt loss and diabetes control are what are important to controlling the future liver health. As a courtesy I refer her to endocrinology for her diabetes mgmt. She also expresses concerns that my hormones are out of balance, as she has facial hair and feels poorly. I think she is talking about possible PCOS which is a more difficult thing to dx so I refer her to endocrinology. She is MO and I will get a TSH. ROV 6 mos. [facility] Medical History (Updated 06/24/24 @ 13:57 by MANUEL Glass) Transaminitis Left hemiplegia Physical exam Poorly controlled diabetes mellitus Osteoporosis Wheelchair dependence Essential hypertension Surgical History History of shoulder surgery History of cholecystectomy History of History of knee surgery Family History Mother Breast cancer Hypertension Diabetes Kidney disease Father Heart disease Social History Household Members: Family Housing: Apartment Alcohol intake: current Alcohol intake frequency: holidays/special occasions only Alcohol type: beer and wine Patient Tobacco Use Status: Former Tobacco user Tobacco use type: Cigarette e-Cigarette/Vaping Use: Never Used Second Hand Smoke Exposure: No service: No Current occupational status: unemployed Cognitive needs: Yes Hearing needs: No Vision needs: Yes Female Reproductive History Menstrual Age of Menarche: 8 Review of Systems Const Reports difficulty sleeping, Denies fatigue, Denies fever(s), Reports malaise, Denies night sweats, Denies poor appetite and Denies weight loss Eyes Details: glasses Reports requires corrective lenses ENT Reports Normal hearing present, Denies dental pain, Denies dysphagia, Denies hearing loss, Denies mouth pain, Denies odynophagia, Denies throat swelling, Denies tongue swelling and Reports other (Dentition adequate) Card Reports no additional complaints Resp Reports no additional complaints GI Details: Denies abdominal pain, Denies melena, Denies bloating, Denies hematochezia, Denies constipation, Denies GI cramping, Denies dysphagia, Denies excessive f latus, Denies early satiety, Denies heartburn, Denies diarrhea, Denies nausea, Denies odynophagia, Denies vomiting and Denies hematemesis Musc Reports myalgias and Reports arthralgias Skin/Breast Reports dry skin, Reports hirsutism, Denies pruritus, Denies lesions, Denies rash and Denies jaundice Neuro Reports Normal hearing present and Denies Abnormal speech present Endo Denies fatigue Aller/Immun Denies throat swelling and Denies tongue swelling Physical Exam Vital Signs: Last Vital Signs Pulse 71 06/24/24 13:31 BP 124/79 06/24/24 13:31 Const General: cooperative, no acute distress, well developed and well groomed Nutritional Appearance: well nourished and obese morbidly obese Orientation/consciousness: oriented to person, oriented to place and oriented to time Limitations: language barrier and wheelchair HEENT Head: Yes normocephalic and Yes atraumatic Face and sinus: Yes face symmetric and Yes other (Hirsutism) Eyes General: appearance normal, both eyes and all related structures Pupils: Equal, round and reactive pupils present Neck Neck: Yes normal visual inspection and Yes no lymphadenopathy Thyroid: Thyroid normal Resp Effort & Inspection: normal respiratory effort and able to speak in complete sentences Auscultation: clear to auscultation bilaterally Cardio Rate: regular rate Rhythm: regular rhythm Heart sounds: Normal, physiologic split S2 sound present Peripheral pulses: radial pulses present and posterior tibial pulses present GI Inspection: No distended, Yes Abdominal panniculus present and Yes obesity Palpation (GI): Soft to palpation, nontender, no guarding, not rigid and No hepatosplenomegaly present Percussion: Yes normal to percussion Auscultation: normal bowel sounds Rectal Exam - Female: deferred Skin General skin exam: no rashes or lesions noted, turgor normal, dry skin, no jaundice, No spider nevi and no striae Rashes: no rashes Nails: normal Neuro General: oriented to person, oriented to place and oriented to time Cranial nerves: Yes Equal, round and reactive pupils present and Yes Normal hearing present Speech: No Abnormal speech present Extrem General: Yes normal to inspection, No clubbing, No cyanosis and No edema Psych Appearance: grossly normal and well kempt Mental Status: mental status grossly normal Speech and movement: Normal speech and movement present Affect: normal affect Attitude: cooperative Thought process: Normal thought process present and not confabulating Thought content: Normal thought content present Insight: Limited insight present (Psych) Judgement: Limited judgement present (Psych) Assessment & Plan Assessment & Plan (1) POWERS (nonalcoholic steatohepatitis): Comment: Baseline Laboratory Tests 07/17/22 Estimated GFR > 60 Hgb A1c (Clinic) 8.2 H Total Bilirubin 0.7 AST 87 H ALT 68 H Alkaline Phosphatase 94 12/05/22 Plt Count 327 Estimated GFR > 60 Hgb A1c (Clinic) Hemoglobin A1c % 9.4 Total Bilirubin 0.7 AST 87 H ALT 68 H Alkaline Phosphatase 94 Ferritin 579 H GGT 91 H. Alpha Fetoprotein 3.3 LASOHN Screen NEGATIVE Hgb A1c (Clinic) 7.3 H Anti-Mitochondrial Ab NEGATIVE Anti-Smooth Muscle Ab <20 Hepatitis A IgM Ab Nonreactive Hep Bs Antigen Negative Hep Bs Antibody NONREACTIVE Hep B Core Total Ab Nonreactive Hepatitis C Ab (EIA) Nonreactive HIV 1&2 Ab/P24 Ag 4thGn Nonreactive ULTRASOUND OF THE ABDOMEN WITH ELASTOGRAPHY 01/22/23 (F-3 CURRENT LABS ULTRASOUND OF THE ABDOMEN WITH ELASTOGRAPHY IMPRESSION: ? 1. There is hepatomegaly. ? 2. There is generalized increase in hepatic echotexture, consistent with fatty infiltration or hepatocellular disease. Please correlate clinically. No focal hepatic mass or intrahepatic biliary dilatation is seen. ? 3. Liver elastography:? Measurements are suggestive of compensated advanced chronic liver disease but need further test for confirmation. ? 4. Technically limited ultrasound examination the pancreas. ? 5. The gallbladder is surgically absent. Code(s): K75.81 - Nonalcoholic steatohepatitis (POWERS) Category: Medical (2) Wheelchair dependence: Code(s): Z99.3 - Dependence on wheelchair Category: Medical (3) Diabetes mellitus: Code(s): E11.9 - Type 2 diabetes mellitus without complications Category: Medical (4) Morbid obesity: Code(s): E66.01 - Morbid (severe) obesity due to excess calories Category: Medical (5) Hormone imbalance: Code(s): E34.9 - Endocrine disorder, unspecified Category: Medical Plan [place] #Lashon Live She is here today with a male family member who is supportive. She seems to continues to struggle with her diabetes control and weight as she admits to eating a lot of raisin bran and rice and her A1C, she thinks was 8%. I again emphasize that wt loss and diabetes control are what are important to controlling the future liver health. As a courtesy I refer her to endocrinology for her diabetes mgmt. She also expresses concerns that my hormones are out of balance, as she has facial hair and feels poorly. I think she is talking about possible PCOS which is a more difficult thing to dx so I refer her to endocrinology. She is MO and I will get a TSH. ROV 6 mos. Orders: Orders Hemoglobin A1c Today E11.9 - Type 2 diabetes mellitus without complications Comprehensive Met. Panel Today K75.81 - Nonalcoholic steatohepatitis (POWERS), Z99.3 - Dependence on wheelchair Complete Blood Count Auto Diff Today K75.81 - Nonalcoholic steatohepatitis (POWERS), Z99.3 - Dependence on wheelchair US abdomen complete Today K75.81 - Nonalcoholic steatohepatitis (POWERS), Z99.3 - Dependence on wheelchair TSH reflex Free T4 Today E66.01 - Morbid (severe) obesity due to excess calories, K75.81 - Nonalcoholic steatohepatitis (POWERS) Referrals CNC MACHINIST Referral E34.9 - Endocrine disorder, unspecified Endocrinology Referral E11.9 - Type 2 diabetes mellitus without complications Coding Level of Care Code Est Pt Level 4 (09823) Diagnoses POWERS (nonalcoholic steatohepatitis) K75.81 Wheelchair dependence Z99.3 Diabetes mellitus E11.9 Morbid obesity E66.01 Hormone imbalance E34.9
[2024-06-24 13:31] VITALS: BP 124/79; PULSE 71
== END 2024-06-24 14:27 | disposition home or self-care (01) ==
PROVIDERS: PCP Internal Medicine; Visit Provider Nurse Practitioner
DX: K75.81 Nonalcoholic steatohepatitis (NASH) (principal); E34.9 Endocrine disorder, unspecified; E11.9 Type 2 diabetes mellitus without complications
CPT/HCPCS: 99214

== ENCOUNTER → 2024-06-24 13:23 | Outpatient (BNVA) | payer OTHER, SELFPAY | PROVIDERS: PCP Internal Medicine; Visit Provider Nurse Practitioner | DX: K75.81 Nonalcoholic steatohepatitis (NASH) (principal); E11.9 Type 2 diabetes mellitus without complications; E34.9 Endocrine disorder, unspecified; E66.01 Morbid (severe) obesity due to excess calories; Z99.3 Dependence on wheelchair | CPT/HCPCS: 99212 ==

== ENCOUNTER 2024-07-13 14:27 | Outpatient (REF) | payer OTHER, SELFPAY ==
--- NOTE | ~2024-07-13 | MM_ITS ---
EXAMINATION: MM SCREENING DIGITAL BREAST TOMOSYNTHESIS, BILATERAL CLINICAL INFORMATION: Screening. Asymptomatic. COMPARISON: Mammography: Comparison is made with available priors TECHNIQUE: Digital breast mammography with tomosynthesis is performed in both the craniocaudal and mediolateral oblique views along with computer-aided detection (CAD). FINDINGS: Technologist notes technically challenging exam patient in wheelchair. The breasts are heterogeneously dense, which may obscure small masses (ACR BI-RADS breast composition Category c). There are no significant masses, abnormal calcifications, or other abnormalities. MM/MM tomosynthesis screening BI IMPRESSION: No mammographic evidence of malignancy. ASSESSMENT: BI-RADS BI-RADS 1 - Negative RECOMMENDATION: Routine annual mammography screening. 1 year F/U This examination should not preclude the clinical evaluation of a suspicious palpable abnormality. This patient's information was entered into a reminder system with a target due date for their next mammogram. Electronically signed by: Elizabeth Hutchinson DO 07/19/2024 06:05 PM MARCELINO
== END 2024-07-13 14:28 | disposition home or self-care (01) ==
LOC: HO.MAMMO 14:27
PROVIDERS: PCP Internal Medicine; Visit Provider Internal Medicine
DX: Z12.31 Encounter for screening mammogram for malignant neoplasm of breast (principal)
CPT/HCPCS: 77063; 77067

== ENCOUNTER → 2024-07-13 15:30 | Outpatient (BNV) | payer OTHER, SELFPAY | PROVIDERS: PCP Internal Medicine; Visit Provider Internal Medicine | DX: Z12.31 Encounter for screening mammogram for malignant neoplasm of breast (principal) | CPT/HCPCS: 77063; 77067 ==

== ENCOUNTER 2024-12-24 16:23 | Outpatient (AMB) | payer OTHER, SELFPAY ==
--- NOTE | 2024-12-24 16:47 | MHC.PC.OV ---
Vital Signs 12/24/24 16:53 BMI Reason not done Patient refused/unable BP 110/80 Blood Pressure Location Lt brachial Position Sitting Intake Visit Reasons: 3 mo follow up dm Intake Note: Patient here for a 3 month follow up DM Egg Processor Required: No Accompanied by: son Allergies No Known Allergies (No Known Allergies*) Allergy (Verified 12/24/24 16:54) Tobacco use date assessed: 12/24/24 Dental Screening Dental Screen Date: 12/24/24 Did you have a dental visit in the last 12 months?: Yes Did you have a dental problem in the last 6 months where you did not have access to dental care?: No Was dental information given to patient?: Patient has dentist HPI HPI Comments History of Present Illness Details The patient is a 59-year-old female presenting for management of chronic conditions. I have tried to refer her to OBGYN but since she is in a wheelchair due to stroke it has been very difficult for OBGYN to see her because she will need a [place] lift. The patient has a history of osteoporosis, for which she underwent bone densitometry in 2022. She is currently on alendronate 70 mg once weekly for osteoporosis management. The patient has diabetes mellitus, with a recent blood glucose level of 6.6, indicating good control. She is on Trulicity 3 mg and Jardiance 10 mg for diabetes management. Also has hirsutism and will be referred to Endocrinology. The patient has a history of nonalcoholic steatohepatitis (POWERS) and continues follow-up with gastroenterology. The patient has hypertension, managed with amlodipine and benazepril. The patient has hyperlipidemia, managed with atorvastatin. The patient has a history of depression and anxiety, for which she is taking fluoxetine 20 mg and hydroxyzine as needed. The patient experienced a stroke six years ago, resulting in left-sided weakness. She is undergoing physical therapy and reports improvement. Preventative care measures include colon cancer screening with a stool test, which needs to be repeated due to expiration of the previous test. She is also due for pneumonia and tetanus vaccinations. [facility] Medical History (Updated 12/24/24 @ 17:20 by Lashon Epps MD) Transaminitis Left hemiplegia Physical exam Poorly controlled diabetes mellitus Osteoporosis Wheelchair dependence Essential hypertension Surgical History History of shoulder surgery History of cholecystectomy History of History of knee surgery Family History Mother Breast cancer Hypertension Diabetes Kidney disease Father Heart disease Social History Household Members: Family Housing: Apartment Alcohol intake: current Alcohol intake frequency: holidays/special occasions only Alcohol type: beer and wine Patient Tobacco Use Status: Former Tobacco user Tobacco use type: Cigarette e-Cigarette/Vaping Use: Never Used Second Hand Smoke Exposure: No service: No Current occupational status: unemployed Cognitive needs: Yes Hearing needs: No Vision needs: Yes Female Reproductive History Menstrual Age of Menarche: 8 Questionnaire PHQ-9 Over the last 2 weeks, how often have you been bothered by any of the following problems? 1. Little interest or pleasure in doing things: not at all 2. Feeling down, depressed, or hopeless: not at all 3. Trouble falling or staying asleep, or sleeping too much: not at all 4. Feeling tired or having little energy: not at all 5. Poor appetite or overeating: not at all 6. Feeling bad about yourself - or that you are a failure or have let yourself or your family down: not at all 7. Trouble concentrating on things, such as reading the newspaper or watching television: not at all 8. Moving or speaking so slowly that other people could have noticed. Or the opposite - being so fidgety or restless that you have been moving around a lot more than usual: not at all 9. Thoughts that you would be better off or of hurting yourself in some way: not at all Total score: 0 Depression Screening Interpretation: Negative Depression Screening Done: Yes 06312 - PHQ-9 Billing: Yes Source: Developed by Drs. George Loredo, Dolly Waters, Carlos Celis and colleagues, with an educational yanelis from [employer]. Thrive Questionnaire Date Thrive assessed: 12/24/24 I am a: Patient What is your living situation today?: I do not have a steady places to live I am temporarily staying with others Within the past 12 months, did the food you bought not last and you didn't have the money to get more?: I choose not to answer this question Within the past 12 months, did you worry whether your food would run out before you got money to buy more?: I choose not to answer this question Do you have trouble paying for medicines?: No Do you have trouble getting transportation to medical appointments?: I choose not to answer this question Do you have trouble paying your heating and electricity bill?: I choose not to answer this question Do you have trouble taking care of your child, family member or friend?: I choose not to answer this question Do you have trouble with day-to-day activities such as bathing, preparing meals, shopping, managing finances, etc.?: I choose not to answer this question Are you currently unemployed and looking for a job?: I choose not to answer this question Are you interested in more education?: I choose not to answer this question Please select the resources that you would like help with: Housing/Senior Care Currently or been in a relationship where the following occur: No concerns reported THRIVE Score: 1 AUDIT C Alcohol Use Questionnaire (AUDIT-C) 1. How often do you have a drink containing alcohol?: Never Total Score: 0 Score Reviewed/Action Taken: No CIERRA-7 AMB Questionnaire CIERAR-7 Date CIERRA - 7 assessed: 12/24/24 Feeling nervous, anxious, or on edge: 0 = Not at all Not being able to stop or control worryin = Not at all Worrying too much about different things: 0 = Not at all Trouble relaxin = Not at all Being so restless that it is hard to sit still: 0 = Not at all Becoming easily annoyed or irritable: 0 = Not at all Feeling afraid as if something awful might happen: 0 = Not at all Total CIERRA-7 score (0-4 normal; 5-9 mild; 10-14 moderate; 15-21 severe): 0 Source: Developed by Drs. George Loredo, Dolly Waters, Carlos Celis and colleagues, with an educational yanelis from [employer]. CIERRA-7 Assessment Billing CIERRA-7 Assessment Tool: CIERRA-7 Assessment 21698 Review of Systems Const All systems reviewed & are unremarkable except as noted in HPI and below Card Denies chest pain at rest, Denies chest pain with activity, Denies edema, Denies irregular heart rhythm, Denies claudication, Denies dyspnea, Denies dyspnea on exertion, Denies orthopnea, Denies paroxysmal nocturnal dyspnea and Denies slow heart rate Resp Denies cough, Denies dyspnea and Denies dyspnea on exertion GI Denies abdominal pain, Denies change in bowel habits, Denies excessive flatus, Denies nausea and Denies vomiting Denies urinary incontinence, Denies urinary hesitancy and Denies urinary urgency Physical exam (Primary Care) Vital Signs: Last Vital Signs BP 110/80 12/24/24 16:53 Tobacco/Smoking Status: Tobacco use Status Tobacco use date assessed 12/24/24 12/24/24 16:56 Patient Tobacco Use Status Former Tobacco user 12/24/24 16:48 Tobacco use type Cigarette 12/24/24 16:48 e-Cigarette/Vaping Use Never Used 12/24/24 16:48 PHQ-9: PHQ-9 Score PHQ-9: Total score 0 12/24/24 17:01 Depression Screening Interpretation: Negative Thrive Assessment: Date of Thrive Assessment Date Thrive assessed 12/24/24 12/24/24 16:56 Currently or been in a relationship where the following occur: No concerns reported Const Limitations: wheelchair Resp Effort & Inspection: normal respiratory effort Auscultation: clear to auscultation bilaterally Cardio Jugular venous distension: no JVD Rate: regular rate Rhythm: regular rhythm Heart sounds: S1 normal heart sound present and S2 normal heart sound present Neuro Motor exam (neuro): Abnormal motor strength present (1/5 left side, 5/5 right) Results AMB Hemoglobin A1c AMB Hemoglobin A1c 6.6 % Last Edit by JOE Lovelace on 12/24/24 17:03 Immunizations pneumoc 20-chinedu conj-dip cr(PF) 0.5 mL IM syringe Performing Provider: Lashon Epps MD [facility] [place] [facility] Administered by: JOE Lovelace on 12/24/24 17:29 Dose Route Admin Location Dispensed Lot Number Expiration Date [employer] 0.5 mL IM Right Deltoid 0.5 mL [id number] 12/06/25 7053-2264-28 [employer] Total Dispensed Waste 0.5 mL 0 % VIS Given Date VIS Provided VIS Publication Date 12/24/24 Single Vaccine 24 Eligibility Eligibility Date Funding Source Not VFC Eligible 12/24/24 Private Results Reviewed Results Reviewed: Laboratory Last Values Hgb A1c (Clinic) 6.6 % (4.0-6.0) H 12/24/24 16:45 Coding Level of Care Code Est Pt Level 4 (56483) Complex EM visit Add On G2211 Diagnoses Moderate recurrent major depression F33.1 Diabetes mellitus E11.9 Essential hypertension I10 Hyperlipidemia LDL goal <70 E78.5 Age-related osteoporosis without current pathological fracture M81.0 Osteoporosis type: age-related Presence of current pathological fracture: without current pathological fracture POWERS (nonalcoholic steatohepatitis) K75.81 Stroke I63.9 Left hemiplegia G81.94 Additional Codes PHQ-9 - 23066 - PHQ-9 Billing: Yes ([id number]) CIERRA-7 Assessment Billing - CIERRA-7 Assessment Tool: CIERRA-7 Assessment 32123 ([id number]) Time Spent (min) 23 Assessment & Plan Assessment & Plan (1) Moderate recurrent major depression: Code(s): F33.1 - Major depressive disorder, recurrent, moderate Category: Medical (2) Diabetes mellitus: Code(s): E11.9 - Type 2 diabetes mellitus without complications Category: Medical (3) Essential hypertension: Code(s): I10 - Essential (primary) hypertension Category: Medical (4) Hyperlipidemia LDL goal <70: Code(s): E78.5 - Hyperlipidemia, unspecified Category: Medical (5) Osteoporosis: Comment: DEXA 12/2022 L-spine T-score 0.0 Left femoral neck T-score-2.5 Left femur total T-score -2.8 Alendronate started 03/2023. Couldn't tolerate PO. liquid alendronate well tolerated 09/2023 Code(s): M81.0 - Age-related osteoporosis without current pathological fracture Category: Medical Qualifiers: Osteoporosis type: age-related Presence of current pathological fracture: without current pathological fracture Qualified Code(s): M81.0 - Age-related osteoporosis without current pathological fracture (6) POWERS (nonalcoholic steatohepatitis): Comment: Baseline Laboratory Tests 07/17/22 Estimated GFR > 60 Hgb A1c (Clinic) 8.2 H Total Bilirubin 0.7 AST 87 H ALT 68 H Alkaline Phosphatase 94 12/05/22 Plt Count 327 Estimated GFR > 60 Hgb A1c (Clinic) Hemoglobin A1c % 9.4 Total Bilirubin 0.7 AST 87 H ALT 68 H Alkaline Phosphatase 94 Ferritin 579 H GGT 91 H. Alpha Fetoprotein 3.3 LASHON Screen NEGATIVE Hgb A1c (Clinic) 7.3 H Anti-Mitochondrial Ab NEGATIVE Anti-Smooth Muscle Ab <20 Hepatitis A IgM Ab Nonreactive Hep Bs Antigen Negative Hep Bs Antibody NONREACTIVE Hep B Core Total Ab Nonreactive Hepatitis C Ab (EIA) Nonreactive HIV 1&2 Ab/P24 Ag 4thGn Nonreactive ULTRASOUND OF THE ABDOMEN WITH ELASTOGRAPHY 01/22/23 (F-3 CURRENT LABS ULTRASOUND OF THE ABDOMEN WITH ELASTOGRAPHY IMPRESSION: ? 1. There is hepatomegaly. ? 2. There is generalized increase in hepatic echotexture, consistent with fatty infiltration or hepatocellular disease. Please correlate clinically. No focal hepatic mass or intrahepatic biliary dilatation is seen. ? 3. Liver elastography:? Measurements are suggestive of compensated advanced chronic liver disease but need further test for confirmation. ? 4. Technically limited ultrasound examination the pancreas. ? 5. The gallbladder is surgically absent. Code(s): K75.81 - Nonalcoholic steatohepatitis (POWERS) Category: Medical (7) Stroke: Comment: 2018 Code(s): I63.9 - Cerebral infarction, unspecified Category: Medical (8) Left hemiplegia: Code(s): G81.94 - Hemiplegia, unspecified affecting left nondominant side Category: Medical Plan The patient will undergo repeat colon cancer screening with a stool test due to the expiration of the previous test. Pneumonia and tetanus vaccinations are recommended, with the option to administer them during this visit or at a future appointment. The patient will continue current management for osteoporosis, diabetes, hypertension, hyperlipidemia, depression, and anxiety. Follow-up with gastroenterology for nonalcoholic steatohepatitis POWERS) will continue as planned. Physical therapy will continue to address left-sided weakness from the previous stroke, with noted improvements. Patient was informed and verbally consented to the use of an ambient scribe for clinic note documentation during this visit. Orders: Orders Vitamin D 25-OH Total Today E55.9 - Vitamin D deficiency, unspecified Lipid Panel Today E78.5 - Hyperlipidemia, unspecified Microalbumin, Random (w Creat) Today R80.9 - Proteinuria, unspecified Complete Blood Count Auto Diff Today D64.9 - Anemia, unspecified IRON PROFILE Today D64.9 - Anemia, unspecified Comprehensive [place]. Panel Fast Today E11.9 - Type 2 diabetes mellitus without complications UA CC w/rflx Micro + Cult Today R30.0 - Dysuria Thyroid Stimulating Hormone Today E66.9 - Obesity, unspecified Pneumococcal 20 Immunization Today Z23 - Encounter for immunization AMB Hemoglobin A1c Today E11.9 - Type 2 diabetes mellitus without complications XR DEXA axial skeleton Today Z78.0 - Asymptomatic menopausal state Vitamin B12 and Folate Today E53.8 - Deficiency of other specified B group vitamins Referrals OFFICE SERVICES CLERK Referral Z12.4 - Encounter for screening for malignant neoplasm of cervix Open Access Screening Colonoscopy Referral Z12.12 - Encounter for screening for malignant neoplasm of rectum Geospatial Applications Developer Nutrition Referral E11.9 - Type 2 diabetes mellitus without complications Endocrinology Referral L68.0 - Hirsutism Medications: New hydroxyzine HCl 50 mg PO TID 30 days PRN 90 tabs 0RF anxiety hydroxyzine HCl 50 mg PO TID PRN 90 tabs 0RF anxiety 30 days
[2024-12-24 16:53] VITALS: BP 110/80
--- OUTSIDE RECORDS SUMMARY | 2024-12-24 17:01 | XMS_ITS | Clinical Summary ---
Author Organization [employer] Address [address] [place] [address] Care Team Providers Care Clamp Remover Name Role Phone Unavailable Primary Care Provider Unavailabl e Encounters Date Type Department Care Team Description 11/26/[address] [phone] Hamilton Gamino MD New Patient Appointment 11/25/[address] [phone] Lashon Salguero MD Chart Prep 11/18/2024 Patient Outreach [address] [phone] Lashon Salguero MD Pre-visit Planning ((Unable to reach for PVP screening and or LVM)) from Last 3 Months Social History Tobacco Use Types Packs/Day Years Used Date Smoking Tobacco: Never Assessed Comments Unknown Sex and Gender Information Value Date Recorded Sex Assigned at Female 05/07/2022 10:33 AM EDT Legal Sex Female 10:33 AM EDT Gender Identity Female 11/25/2024 8:09 AM EDT Sexual Orientation Don't know 11/25/2024 8: 09 AM EDT Plan of Treatment Health Maintenance Due Date Last Done Comments CT Colonography 1964 Colonoscopy 1964 Colorectal Cancer Screening 1964 Depression Screening 1964 FIT DNA/Cologuard 1964 FIT 1964 FOBT 1964 HIV Screening 1964 SDOH Screening 1964 Sigmoidoscopy 1964 Disability Screening 1964 Alcohol/Substance Use Screening 1976 Tobacco Screening 1976 Hepatitis C Screening 01/30/1982 DTaP/Tdap/Td Vaccines (1 - Tdap) 01/30/1983 Pap Smear 01/30/1985 Cervical Cancer Screening 01/30/1994 HPV/Cotest 01/30/1994 Mammogram 2004 Pneumococcal Vaccine: 50+ Years (1 of 1 - PCV) 01/30/2014 Zoster Vaccines (1 of 2) 01/30/2014 COVID-19 Vaccine (1 - 2023-2 5 season) 2024 Influenza Vaccine (Season Ended) 2025 07/11/2023, 07/17/2022, 09/02/2017 RSV Patients and Patients Aged 60 years or older (1 - 1-dose 75+ series) 01/30/2039 HIB Vaccines Aged Out No longer eligi ble based on patient's age to complete this topic HPV Vaccines Aged Out No longer eligi ble based on patient's age to complete this topic Hepatitis A Vaccines Aged Out No long er eligible based on patient's age to complete this topic Hepatitis B Vaccines Aged Out No long er eligible based on patient's age to complete this topic IPV Vaccines Aged Out No longer eligi ble based on patient's age to complete this topic Meningococcal B Vaccine Aged Out No l onger eligible based on patient's age to complete this topic Meningococcal Vaccine Aged Out No dominique florin eligible based on patient's age to complete this topic RSV under 20 months Aged Out No longe r eligible based on patient's age to complete this topic Rotavirus Vaccines Aged Out No longer eligible based on patient's age to complete this topic Insurance [facility] STANDARD [employer] < 65 [place] [id number]
== END 2024-12-24 17:20 | disposition home or self-care (01) ==
LOC: HO.HMCH 16:24
PROVIDERS: PCP Internal Medicine; Visit Provider Internal Medicine
DX: E11.69 Type 2 diabetes mellitus with other specified complication (principal); F33.1 Major depressive disorder, recurrent, moderate; I63.9 Cerebral infarction, unspecified; G81.94 Hemiplegia, unspecified affecting left nondominant side; I10 Essential (primary) hypertension; E78.5 Hyperlipidemia, unspecified; M81.0 Age-related osteoporosis without current pathological fracture; K75.81 Nonalcoholic steatohepatitis (NASH); Z23 Encounter for immunization

== ENCOUNTER → 2024-12-24 16:23 | Outpatient (BNVA) | payer OTHER, SELFPAY | PROVIDERS: PCP Internal Medicine; Visit Provider Internal Medicine | DX: E11.9 Type 2 diabetes mellitus without complications (principal); M81.0 Age-related osteoporosis without current pathological fracture; I10 Essential (primary) hypertension; E78.5 Hyperlipidemia, unspecified; F41.9 Anxiety disorder, unspecified; F33.1 Major depressive disorder, recurrent, moderate; K75.81 Nonalcoholic steatohepatitis (NASH); I69.354 Hemiplegia and hemiparesis following cerebral infarction affecting left non-dominant side; L68.0 Hirsutism; Z23 Encounter for immunization; Z79.899 Other long term (current) drug therapy | CPT/HCPCS: 83036; 90471; 90677; 96127; 99212 ==

== ENCOUNTER 2025-01-19 15:00 | Outpatient (RCR) | payer OTHER, SELFPAY ==
--- NOTE | 2024-07-17 16:21 | MHC.PT.EP ---
[facility] [place] [facility] [place] [facility] [place] [facility] [address] Jessee Brown [address] [phone] F: [phone] F: [phone] F: [phone] F: [phone] Physical Therapy Plan of Care Date of Evaluation: 07/17/24 Date of Surgery: Diagnosis: CVA (5 yrs prior) with L hemiparesis (MD Dx) RS wheelchair bound, shakila lift Assessment: Suma is a pleasant, motivated 59 y.o. female who is referred to PT by Dr. Lashon Epps MD with Dx of CVA (5 yrs prior) with L hemiparesis. Patient impairments include L sided hemiparesis in L UE and LE with weakness in L ankle, knee, hip. She also is very limited in L shoulder PROM, AROM with weakness as well at limitations in L elbow, wrist, and hand ROM and strength. was contacted to send Rx for OT to work on L UE/hand for splinting and fine motor coordination and movements. Patient current functional limitations are inability to stand and is dependent upon shakila lift for transfers in/out of wheelchair in bed. She is dependent upon her son whom acts as her ENERGY MANAGEMENT SPECIALIST for all ADLs including dressing, bathing, toileting, cooking, cleaning. Patient will benefit from skilled PT to gain skills to self manage her care better, to try to assist with transfers, gain HEP for ROM and strengthening for self and with help of family, discussions of trial to stand with help of parallel bars. Frequency and Duration: The patient will be seen 1x/week for 4 weeks Short Term Goals: 2 weeks Patient demonstrates consistency and independence with HEP for LE mobility and strengthening. Loan Administrator Goals: 4 weeks Patient is able to try sit to stand transfer from wheel chair to parallel bars with Max A to alleviate pressure on low back and work towards being able to assist with transfers at home. Treatment Plan: Modalities to reduce pain, spasms and effusion. Manual therapy to restore motion and function. Therapeutic exercise to improve strength and flexibility. Neuromuscular re-education for posture and balance. Therapeutic activities to return to functional activities of daily living. Electronically signed by: Diana Negron, PT, DPTy Please sign and return to therapist. Thank you for your referral.
--- NOTE | 2025-03-11 15:33 | MHC.PT.DC ---
[facility] [place] Office [place] Office [place] Office [address] Jessee Brown [address] [phone] F: [phone] F: [phone] F: [phone] F: [phone] Physical Therapy Discharge Report Diagnosis: CVA (5 yrs prior) with L hemiparesis (MD Naranjo) RS wheelchair bound, shakila lift Date of Surgery: Date of Evaluation: 07/17/24 Date of Discharge: 03/11/25 Treatments to Date: 13 Cancellations to Date: 10 No Shows to Date: 1 Discharge Status: Achieved Goals Improved Function Independent with HEP Discharge Summary: Suma showed considerable progress since initiaing PT in the beginning of this year. Her attendance was inconsistent due to difficulty with transportation to clinic. Per her last PT treatment on 01/19/25 the assessment reads, Suma does very well with upper body exercises. Her L hand does not come loose from body make up artist (there is external support to help hold it in place). She does not R knee and thigh pain after seated machine UE exercises. Therefore she performed sit to stand and standing transfer in parallel bars with son performing transfer and she reports this did not cause any leg pain but rather alleviated it. She completed approved PT sessions and is therefore discharged from PT at this time. Electronically signed by: Diana Negron, PT, DPT Please sign and return to therapist. Thank you for your referral.
== END 2025-03-11 15:34 | disposition home or self-care (01) ==
LOC: HO.PT 15:00
PROVIDERS: PCP Internal Medicine; Visit Provider Internal Medicine
DX: G81.94 Hemiplegia, unspecified affecting left nondominant side (principal); I63.9 Cerebral infarction, unspecified; Z99.3 Dependence on wheelchair
CPT/HCPCS: 97110; 97163; 97530; 97535

== ENCOUNTER 2025-02-15 12:39 | Outpatient (AMB) | payer OTHER, SELFPAY ==
--- OUTSIDE RECORDS SUMMARY | 2025-02-15 12:42 | XMS_ITS | Clinical Summary ---
Author Organization [employer] Address [address] [place] [address] Care Team Providers Care Director Media Name Role Phone Unavailable Primary Care Provider Unavailabl e Encounters Date Type Department Care Team Description 11/26/[address] [phone] Hamilton Gamino MD New Patient Appointment 11/25/[address] [phone] Lashon Salguero MD Chart Prep 11/18/2024 Patient Outreach [address] [phone] Lashon Salguero MD Pre-visit Planning ((Unable to [...] - 2023-2 5 season) 2024 Influenza Vaccine (#1) 2025 , 07/17/2022, 09/02/2017 RSV Patients and Patients Aged [...] patient's age to complete this topic Insurance [facility] STANDARD [employer] CARE < 65 [place] [id number]
[2025-02-15 12:56] VITALS: BP 110/82; PULSE 79; O2SAT 96
--- NOTE | 2025-02-15 12:56 | MHC.OFFVIS ---
Vital Signs 02/15/25 12:56 Height 5 ft 3 in BP 110/82 Blood Pressure Location Rt brachial Position Sitting Pulse 79 Pulse Source Pulse Oximeter Pulse Oximetry (%) 96 Oxygen Delivery Method Room Air Intake Visit Reasons: Hirsutism Intake Note: New patient referred by Dr. Tarik Epps for Hirsutism. Warehouse Operations Manager Required: Yes Warehouse Operations Manager Language: Inspector Machine [employer] Glass Services: Warehouse Operations Manager Present Warehouse Operations Manager Name: August [id number] Information Interpreted: non-clinical & clinical Accompanied by: Son Allergies No Known Allergies (No Known Allergies*) Allergy (Verified 02/15/25 13:01) Medication List - Last Reconciled 02/15/25 by Mary Abad MD [adult diapers pull-ups As directed] alendronate 70 mg (75 mL) PO QWEEK amitriptyline 25 mg PO BEDTIME 90 days amlodipine-benazepril 5-10 mg 1 cap PO DAILY 90 days atorvastatin 40 mg PO BEDTIME 90 days blood sugar diagnostic (FreeStyle Lite Strips) Use 1 test strip once a day blood-glucose meter (FreeStyle Lite Meter kit) As directed cholecalciferol (vitamin D3) 25 mcg PO DAILY 90 days clopidogrel 75 mg PO DAILY 90 days disposable gloves As directed dulaglutide (Trulicity) 3 mg (0.5 mL) subcut QWEEK 30 days empagliflozin (Jardiance) 10 mg PO DAILY 90 days fluoxetine 20 mg PO DAILY Gait belt As directed hospital bed As directed [shakila lift electric As directed] hydroxyzine HCl 50 mg PO TID PRN 30 days [incontinence wipes As directed] lancets (FreeStyle Lancets) Use 1 lancet once a day [mattress for hosptial bed As directed] metoprolol tartrate 50 mg PO BID 90 days montelukast 10 mg PO DAILY 90 days TENS unit electrodes As directed underpads (Certainty Underpads) As directed [wheelchair bariatric As directed] [wipes As directed] zolpidem (Ambien) 10 mg PO BEDTIME HPI Comments Details: 60-year-old female coming in today for initial evaluation of hirsutism. here today with son , John. presents with complaints of hirsutism. says she has always had it Says more bothersome to her now as it is worsening. facial hair and around the nipple. Cosmetic therapies: waxing, clipping Never tried any medications in the past Denies acne, reports hair loss. She has a history of HTN, hyperlipidemia, diabetes. Denies lowering of voice POst menopausal since 52 years old. natural menopause. During reproductive years, initially irregular, more regulated after of son at age 36 Menarche: 8 years old Pregnancies: 2 , 1 miscarriage Thinks she has lost weight recently Hirsutism is described as moderate ,she reports that she had to clip them every week. She reports its on her Chin,upper lip,chest Medical therapies: She has been on metformin in the past for type 2 DM, not on in currenlty due to GI intolerance. On trulicity now for type 2 DM for 3 years , thinks it really helped with weight loss and better control of DM Other symptoms: No hx of easy bruisability,prox muscle weakness, Does have Htn,DM,depression, No frontal balding, clitoromegaly, increased muscle mass, or deepening of the voice, No Enlarged jaw (macrognathia) ,no increasing shoe, glove, but does report change in ring size No headaches, visual field defects, and cranial nerve palsies. wheel chair bound with residual left sided weakness since stroke in 2018. Physical exam General: sitting comfortably in no acute distress HEENT: normocephalic/atraumatic, facial hair noted Neck: supple, Cardiac: normal heart sounds Pulm: normal breath sounds B/L, no added breath sounds Abd: not distended, no tenderness, no purple striae Extremities: no edema, no signs of myxedema PFSH Medical History Transaminitis Left hemiplegia Physical exam Poorly controlled diabetes mellitus Osteoporosis Wheelchair dependence Essential hypertension Surgical History History of shoulder surgery History of cholecystectomy History of History of knee surgery Family History Mother Breast cancer Hypertension Diabetes Kidney disease Father Heart disease Social History Household Members: Family Housing: Apartment Alcohol intake: current Alcohol intake frequency: holidays/special occasions only Alcohol type: beer and wine Patient Tobacco Use Status: Former Tobacco user Tobacco use type: Cigarette e-Cigarette/Vaping Use: Never Used Second Hand Smoke Exposure: No service: No Current occupational status: unemployed Cognitive needs: Yes Hearing needs: No Vision needs: Yes Female Reproductive History Menstrual Age of Menarche: 8 Assessment & Plan Assessment & Plan (1) Hirsutism: Code(s): L68.0 - Hirsutism Category: Medical Plan: 60-year-old female coming in today for initial evaluation of hirsutism. She is postmenopausal with natural menopause at age 52. Hirsutism has been present for many years, however more bothersome to her now as she has had worsening facial hair. She has never tried any medications for it. Uses cosmetic measures such as plucking/shaving. Differentials in postmenopausal women include PCOS/insulin resistance/ovarian hyperthecosis/adrenal or ovarian tumors/nonclassic CAH/[place]'s disease/acromegaly. She does not have any acromegalic features. Her diabetes mellitus is well-controlled on Trulicity and Jardiance, she has lost weight recently, blood pressure is well-controlled, she does not have any purple abdominal striae, no skin thinning, no easy bruising for me to suspect hypercortisolism. I will check a random cortisol and ACTH to get a baseline but she is incontinent of her urine so no point in doing 24 hour urine cortisol levels. She is not on any steroid medications that would worsen hirsutism. We will check androgen levels +17 hydroxyprogesterone levels to rule out nonclassic CAH. Given she does not have any severe hyper androgenic features such as clitoromegaly, changes in voice, frontal balding I doubt she has any tumors or ovarian hyperthecosis. Given history of irregular periods in her reproductive years, she possibly has a underlying PCOS/insulin resistance, especially given she also has type 2 diabetes mellitus. She is already on a GLP 1 agonist that helped rid weight loss and she has well-controlled for her diabetes mellitus. In terms of the hirsutism we could consider offering her spironolactone in the near future. Plan: -ordered testosterone total and free, SHBG, 17 hydroxyprogesterone, androstenedione, DHEA-S, cortisol, acth levels -follow up in 6 weeks to discuss results Plan I spent 45 minutes in reviewing the record, seeing the patient and documenting in the medical record. Orders: Orders Testosterone, Free/Total Today L68.0 - Hirsutism Sex Hormone Binding Globulin Today L68.0 - Hirsutism Androstenedione Today L68.0 - Hirsutism Cortisol Random Today L68.0 - Hirsutism DHEA Sulfate Today L68.0 - Hirsutism 17 Hydroxyprogesterone Today L68.0 - Hirsutism TSH reflex Free T4 Today L68.0 - Hirsutism Adrenocorticotropic Hormone Today L68.0 - Hirsutism Patient Instructions: do blood work We will discuss results at next appointment Coding Level of Care Code New Pt Level 4 (05761) Diagnoses Hirsutism L68.0 Time Spent (min) 45
== END 2025-02-15 13:44 | disposition home or self-care (01) ==
LOC: HO.ENCR 12:40
PROVIDERS: PCP Internal Medicine; Visit Provider Student in an Organized Health Care Education/Training Program
DX: L68.0 Hirsutism (principal)
CPT/HCPCS: 99204

== ENCOUNTER → 2025-02-15 12:39 | Outpatient (BNVA) | payer OTHER, SELFPAY | PROVIDERS: PCP Internal Medicine; Visit Provider Student in an Organized Health Care Education/Training Program | DX: L68.0 Hirsutism (principal) | CPT/HCPCS: 99202 ==

== ENCOUNTER 2025-02-16 13:02 | Outpatient (REF) | payer OTHER, SELFPAY ==
--- NOTE | ~2025-02-16 | MM_ITS ---
EXAMINATION: DXA BONE DENSITY AXIAL HISTORY: Z78.0 - Asymptomatic menopausal state TECHNIQUE: [employer] Dual energy absorptiometry (DEXA) of the lumbar spine, total left hip, and femoral neck was performed. COMPARISON: Comparison is made with the prior examination dated 12/13/2022. FINDINGS: The bone mineral density of the lumbar spine is 1.236 g/cm2, corresponding to a T-score of 0.5, and a Z-score of 0.6. This is indicative of normal bone mineral density. This represents a BMD change of 4.7% compared to the prior exam. This is statistically significant. The bone mineral density of the left total hip is 0.732 g/cm2, corresponding to a T-score of -2.2, and a Z-score of -2.1. This is indicative of osteopenia. This represents a BMD change of 12.4% compared to the prior exam. This is statistically significant. The bone mineral density of the left femoral neck is 0.822 g/cm2, corresponding to a T-score of -1.6, and a Z-score of -1.0. This is indicative of osteopenia. This represents a BMD change of 19.0% compared to the prior exam. FRACTURE RISK: The FRAX index suggests a ten year probability of major osteoporotic fracture of 4.8%, and of hip fracture 0.4%. MM/XR DEXA axial skeleton IMPRESSION: Based on bone mineral density, and according to World Health Organization (WHO) criteria, the diagnosis is consistent with osteopenia. Statistically, 68% of repeat scans fall within 1 SD (+/- 0.010 g/cm2 for AP spine L1-L4) and 1 SD (+/- 0.012 g/cm2 for femur total) FRAX is a trademark of the [employer] Metabolic Bone Disease, a World Health Organization (WHO) Collaborating Center. Electronically signed by: George Gusman MD 02/16/2025 02:19 PM EDT
--- OUTSIDE RECORDS SUMMARY | 2025-02-16 13:51 | XMS_ITS | Clinical Summary ---
Author Organization [employer] Address [address] [facility] [address] [place] [address] Care Team Providers Care Line Installation Supervisor Name Role Phone Unavailable Primary Care Provider Unavailabl e Encounters Date Type Department Care Team Description 11/26/[address] [id number] Hamilton Gamino MD New Patient Appointment 11/25/[address] [phone] Lashon Salguero MD Chart Prep 11/18/2024 Patient Outreach [address] [phone] Lashon Salguero MD Pre-visit Planning ((Unable to [...] patient's age to complete this topic Insurance [facility] STANDARD [employer] < 65 [place] [id number]
== END 2025-02-16 13:03 | disposition home or self-care (01) ==
LOC: HO.MAMMO 13:02
PROVIDERS: Absent Provider Student in an Organized Health Care Education/Training Program; PCP Internal Medicine; Visit Provider Internal Medicine
DX: Z78.0 Asymptomatic menopausal state (principal)
CPT/HCPCS: 77080

== ENCOUNTER → 2025-02-16 13:30 | Outpatient (BNV) | payer OTHER, SELFPAY | PROVIDERS: Absent Provider Student in an Organized Health Care Education/Training Program; PCP Internal Medicine; Visit Provider Radiology Diagnostic Radiology | DX: E28.39 Other primary ovarian failure (principal) | CPT/HCPCS: 77080 ==

== ENCOUNTER 2025-03-25 13:30 | Outpatient (AMB) | payer OTHER, SELFPAY ==
--- NOTE | 2025-03-25 13:54 | A.OFFVIS_ITS ---
VS Expanded 03/25/25 14:14 04/01/25 12:36 Height 5 ft 3 in Weight 247 lb BMI 43.7 Comment wheelchair bound Intake Visit Reasons: Type 2 diabetes mellitus without complications Allergies No Known Allergies (No Known Allergies*) Allergy (Verified 02/15/25 13:01) Nutrition Presentation Details: Pt presents for MNT for T2DM Pt is in a wheelchair d/t left sided paralysis from stroke 6 yrs. Pt presents accompanied by male who helps with meal preparation Typical meal intake 11 : hot cereal (farina or cornmeal) made with milk snack : crackers with peanut butter or juice or coffee 9: pasta with chicken with lelo sauce , water or juice Pt reports doing well with eating ,softer foods easier to consume etoh/smoking: denies physical activity: tries to do stretches but limited d/t left side paralysis food frequency fruits: 0-1/d fish : no including fried foods 2-3 x/wk ve-2x/wk, dislikes dairy : cheese mostly whole grain foods: 1-2 x/wk (beans) fluids : water, juice, coffee, 16 oz/d wt est at 250 lbs takes vitamin d def BS Monitoring Most Recent Diabetes Results: Cholesterol, (<200) 191 mg/dL 03/30/25 HDL Cholesterol, (>40) 44 mg/dL 03/30/25 Triglycerides, (<150) 183 mg/dL H 03/30/25 Creatinine, (0.5-1.4) 0.66 mg/dL 03/30/25 BUN, (9-16) 14 mg/dL 03/30/25 Sodium, (135-145) 139 mmol/L 03/30/25 Potassium, (3.3-5.1) 3.9 mmol/L 03/30/25 Chloride, (96-108) 107 mmol/L 03/30/25 Carbon Dioxide, (22-29) 26 mmol/L 03/30/25 Calcium, (8.4-10.2) 9.5 mg/dL 03/30/25 AST, (5-31) 57 U/L H 03/30/25 ALT, (0-31) 81 U/L H 03/30/25 Total Protein, (6.5-8.0) 8.6 g/dL H 03/30/25 Albumin, (3.5-5.0) 4.2 g/dL 03/30/25 [id number] Equation Height: 5 ft 3 in Weight: 247 lb (stated wt) Resting Metabolic Rate: 1658.26 Calculated Activity Level: Sedentary Calories Needed to Maintain Weight: 1989.91 Diagnosis Nutrition problem #1: food nutri know defi As related to (etiology) #1: lack of nutrit education As evidenced by (sign/symptom) #1: knowledge deficit of diet [facility] Medical History (Updated 03/30/25 @ 15:06 by MANUEL Glass) Screening for cervical cancer Transaminitis Left hemiplegia Physical exam Poorly controlled diabetes mellitus Osteoporosis Wheelchair dependence Essential hypertension Surgical History History of shoulder surgery History of cholecystectomy History of History of knee surgery Family History Mother Breast cancer Hypertension Diabetes Kidney disease Father Heart disease Social History Household Members: Family Housing: Apartment Alcohol intake: current Alcohol intake frequency: holidays/special occasions only Alcohol type: beer and wine Patient Tobacco Use Status: Former Tobacco user Tobacco use type: Cigarette e-Cigarette/Vaping Use: Never Used Second Hand Smoke Exposure: No service: No Current occupational status: unemployed Cognitive needs: Yes Hearing needs: No Vision needs: Yes Female Reproductive History Menstrual Age of Menarche: 8 Assessment & Plan Assessment & Plan (1) Diabetes mellitus: Code(s): E11.9 - Type 2 diabetes mellitus without complications Category: Medical Plan: ++ RECOMMEND for PCP to monitor for b12, niacin and magnesium deficiencies related to hx of stroke and poor intake /possible poor absorption current wt: est 112 kg ( 04/01 ) est kcal needs as per MSJ: 2000 - 500 = 1500 est protein needs as per 1 g/kg BW: 110 est fluid needs as per 30 ml/kg BW: 3400 (unless otherwise specified by MD) Recommended fiber > 12 g /day and gradually increase up to 25-28 g /day or as tolerated Nutrition topics discussed : Reviewed (R), Pt verbalized understanding (V) , not applicable (N/A) R, : Healthy Plate Method Concept: R, V, N/A: Carbohydrates: food sources of carbohydrates, relationship of carbohydrates to blood glucose, fatty liver GI health. Recommended total amount of carbohydrates per meals and snack. Differences between simple carbohydrates and complex carbohydrates R, : Lean protein foods including vegan , vegetarian sources of protein. Benefits of protein (including but not limited to healing, nutritional value , benefits in weight loss, glucose control R, : Fats : Source of fats, benefits of fats. Difference between saturated and unsaturated fats. Saturated fats and its contribution to inflammation R, : Fiber: food sources and role of fiber in the diet (including but not limited to its role as a prebiotic, benefits in constipation, role in IBS , role in glucose control and cholesterol level) R, : Hydration: role of hydration and prevention of dehydration or over hydration. Foods and water content. R, V, N/A: Vitamins and Minerals in foods and supplements R, V, N/A: Interpreting food labels, including serving size, macronutrients, vitamins, minerals, allergens, ingredient list , % daily value Patient Instructions: Have 1 meal replacement per day (max protein shake, or fairlife protein shake) Follow healthy plate method at dinner time working on reducing portion of starches to 1 cup cooked, having 4 oz of lean protein (including fish at least twice a week) with non starchy veg and 1 cup of fairlife milk see meal ideas Coding Level of Care Code Nutr Indiv Intake (42191) Diagnoses Diabetes mellitus E11.9 Time Spent (min) 30
[2025-04-01 12:36] VITALS: BMI 43.7
== END 2025-03-25 14:38 | disposition home or self-care (01) ==
LOC: HO.ENCR 13:30
PROVIDERS: PCP Internal Medicine; Visit Provider Dietitian, Registered
DX: E11.9 Type 2 diabetes mellitus without complications (principal)

== ENCOUNTER → 2025-03-25 13:30 | Outpatient (BNVA) | payer OTHER, SELFPAY | PROVIDERS: PCP Internal Medicine; Visit Provider Dietitian, Registered | DX: E11.9 Type 2 diabetes mellitus without complications (principal); I69.954 Hemiplegia and hemiparesis following unspecified cerebrovascular disease affecting left non-dominant side; E53.8 Deficiency of other specified B group vitamins; E61.2 Magnesium deficiency; Z71.3 Dietary counseling and surveillance | CPT/HCPCS: 97802 ==

== ENCOUNTER 2025-03-26 12:35 | Outpatient (REF) | payer OTHER, SELFPAY ==
--- NOTE | ~2025-03-26 | US_ITS ---
EXAMINATION: US ABDOMEN COMPLETE CLINICAL INFORMATION: Nonalcoholic steatohepatitis. COMPARISON: Ultrasound abdomen 12/18/2022 TECHNIQUE: Real-time imaging of the abdominal viscera. FINDINGS: PANCREAS: The head and the body the pancreas is homogeneous in echotexture. The tail is obscured by overlying gas. ABDOMINAL AORTA: The mid, and distal segments are normal in caliber. INFERIOR VENA CAVA: Visualized portions are normal. LIVER: Liver is normal size measuring 20.7 cm. The liver contour is lobulated. Parenchymal echogenicity is increased. No focal hepatic lesion. There is no intrahepatic biliary duct dilatation seen. There is normal hepatopedal flow seen in the middle portal vein. GALLBLADDER: The gallbladder has been surgically removed. COMMON BILE DUCT: Normal in caliber measuring 0.7 cm in diameter. RIGHT KIDNEY: No hydronephrosis. No renal calculi or focal parenchymal lesions. The kidney measures 10.9 cm in maximum dimension. LEFT KIDNEY: No hydronephrosis. No renal calculi or focal parenchymal lesions. The kidney measures 10.8 cm in maximum dimension. SPLEEN: The spleen measures 9.7 cm in maximum dimension. FREE FLUID: None. US/US abdomen complete IMPRESSION: Slightly lobulated liver contour with increased echogenicity and mild hepatomegaly. No focal lesion. Mild hepatic steatosis. The gallbladder has been surgically removed. Rest of the abdominal ultrasound is unremarkable. Electronically signed by: Garcia Ellsworth MD 03/26/2025 04:42 PM EDT
--- OUTSIDE RECORDS SUMMARY | 2025-03-26 12:37 | XMS_ITS | Clinical Summary ---
Author Organization [employer] Address [address] [facility] [address] [place] [address] Care Team Providers Care Surgical Tech Name Role Phone Unavailable Primary Care Provider Unavailabl e Social History Tobacco Use Types Packs/Day Years [...] Vaccines (1 of 2) 01/30/2014 COVID-19 Vaccine ( - 2023-2 5 season) 2025 Influenza Vaccine (#1) 2025 , 07/17/2022, 09/02/2017 [...] age to complete this topic Insurance [facility] STANDARD [facility] < 65
== END 2025-03-26 12:36 | disposition home or self-care (01) ==
LOC: HO.US 12:35
PROVIDERS: PCP Internal Medicine; Visit Provider Nurse Practitioner
DX: K75.81 Nonalcoholic steatohepatitis (NASH) (principal); Z99.3 Dependence on wheelchair
CPT/HCPCS: 76700

== ENCOUNTER → 2025-03-26 12:38 | Outpatient (BNV) | payer OTHER, SELFPAY | PROVIDERS: PCP Internal Medicine; Visit Provider Radiology Diagnostic Radiology | DX: K75.81 Nonalcoholic steatohepatitis (NASH) (principal); Z90.49 Acquired absence of other specified parts of digestive tract | CPT/HCPCS: 76700 ==

== ENCOUNTER 2025-03-30 14:36 | Outpatient (REF) | payer OTHER, SELFPAY ==
[2025-03-30 16:06] LABS: MANUAL DIFF FLAG NO
[2025-03-30 16:12] LABS: Hematocrit 49.5 % (37.0-47.0); Hemoglobin 15.5 g/dl (12.0-16.0); Imm Gran Abs Auto 0.02 X10*3/uL (0.00-0.03); Imm Gran Pct Auto 0.2 % (0.0-0.4); Lymphocytes Absolute Auto 2.9 X10*3/uL (1.2-4.9); Mean Corpuscular HGB Conc 31.3 g/dl (31.0-35.0); Mean Corpuscular Hemoglobin 27.6 pg (27.0-33.0); Mean Corpuscular Volume 88.1 fL (80.0-98.0); NRBC Abs Auto 0.000 X10*3/uL (0.0-0.012); NRBC Pct Auto 0.0 /100WBC (0.0-0.2); Platelet Count 270 X10*3/uL (160-400); Red Blood Count 5.62 X10*6/uL (4.20-5.50); White Blood Count 9.4 X10*3/uL (4.8-10.8)
[2025-03-30 16:45] LABS: Alanine Aminotransferase 82 U/L (0-31); Albumin Level 4.2 g/dL (3.5-5.0); Alkaline Phosphatase 95 U/L (39-117); Anion Gap 11 (12-20); Aspartate Amino Transferase 54 U/L (5-31); Blood Urea Nitrogen 14 mg/dL (9-16); Calcium 9.5 mg/dL (8.4-10.2); Carbon Dioxide 25 mmol/L (22-29); Chloride 107 mmol/L (96-108); Estimated Glomerular Filt Rate > 60; Potassium 3.8 mmol/L (3.3-5.1); Sodium 139 mmol/L (135-145); Total Protein 8.6 g/dL (6.5-8.0)
[2025-03-30 16:54] LABS: Alanine Aminotransferase 81 U/L (0-31); Albumin Level 4.2 g/dL (3.5-5.0); Alkaline Phosphatase 97 U/L (39-117); Anion Gap 10 (12-20); Aspartate Amino Transferase 57 U/L (5-31); Blood Urea Nitrogen 14 mg/dL (9-16); Calcium 9.5 mg/dL (8.4-10.2); Carbon Dioxide 26 mmol/L (22-29); Chloride 107 mmol/L (96-108); Cholesterol 191 mg/dL (<200); Estimated Glomerular Filt Rate > 60; HDL Cholesterol 44 mg/dL (>40); Iron 61 mcg/dL (30-160); Percent Iron Saturation 24 % (15-50); Potassium 3.9 mmol/L (3.3-5.1); Sodium 139 mmol/L (135-145); Total Iron Binding Capacity 258 mcg/dL (228-428); Total Protein 8.6 g/dL (6.5-8.0); Triglycerides 183 mg/dL (<150); Unsaturated Iron Binding 197 ug/dL
[2025-03-30 16:57] LABS: Thyroid Stimulating Hormone 1.21 uIU/mL (0.32-4.0)
[2025-03-30 17:13] LABS: Folate 10.6 ng/mL (> or = 4.0); Vitamin B12 576 pg/mL (200-900)
[2025-04-04 12:53] LABS: Vitamin D 25-OH, D2 5 ng/mL; Vitamin D 25-OH, D3 34 ng/mL; Vitamin D 25-OH, Total 39 ng/mL (30-100)
[2025-04-08 18:03] LABS: Testosterone, Free 6.3 pg/mL (0.1-6.4)
== END 2025-03-30 14:37 | disposition home or self-care (01) ==
LOC: HO.LAB 14:36
PROVIDERS: Absent Provider Student in an Organized Health Care Education/Training Program; PCP Internal Medicine; Referring Provider Student in an Organized Health Care Education/Training Program; Visit Provider Nurse Practitioner
DX: K75.81 Nonalcoholic steatohepatitis (NASH) (principal); E11.9 Type 2 diabetes mellitus without complications; E66.01 Morbid (severe) obesity due to excess calories; L68.0 Hirsutism; D64.9 Anemia, unspecified; E55.9 Vitamin D deficiency, unspecified; E53.8 Deficiency of other specified B group vitamins; E78.5 Hyperlipidemia, unspecified; Z99.3 Dependence on wheelchair
CPT/HCPCS: 36415; 80053; 80061; 82157; 82306; 82533; 82607; 82627; 82746; 83036; 83498; 83540; 84270; 84402; 84403; 84443; 85025; 99212

== ENCOUNTER 2025-03-30 14:36 | Outpatient (AMB) | payer OTHER, SELFPAY ==
--- NOTE | 2025-03-30 14:48 | A.OFFVIS_ITS ---
Vital Signs 03/30/25 14:49 Height 5 ft 3 in Weight 247 lb BMI 43.7 BP 116/66 Blood Pressure Location Lt brachial Position Sitting Pulse 69 Intake Visit Reasons: us f/u Intake Note: Suma presents to in office follow up of US . CC: Patient c/o having a lot of gas, and soft small BMs. Denies other GI symptoms today. Director Of Retail Analytics Required: Yes Director Of Retail Analytics Language: Pashto Accompanied by: Son Allergies No Known Allergies (No Known Allergies*) Allergy (Verified 02/15/25 13:01) HPI HPI us f/u: Details: Assessment & Plan (1) POWERS (nonalcoholic steatohepatitis): Comment: Baseline Laboratory Tests 07/17/22 Estimated GFR > 60 Hgb A1c (Clinic) 8.2 H Total Bilirubin 0.7 AST 87 H ALT 68 H Alkaline Phosphatase 94 12/05/22 Plt Count 327 Estimated GFR > 60 Hgb A1c (Clinic) Hemoglobin A1c % 9.4 Total Bilirubin 0.7 AST 87 H ALT 68 H Alkaline Phosphatase 94 Ferritin 579 H GGT 91 H. Alpha Fetoprotein 3.3 LASHON Screen NEGATIVE Hgb A1c (Clinic) 7.3 H Anti-Mitochondrial Ab NEGATIVE Anti-Smooth Muscle Ab <20 Hepatitis A IgM Ab Nonreactive Hep Bs Antigen Negative Hep Bs Antibody NONREACTIVE Hep B Core Total Ab Nonreactive Hepatitis C Ab (EIA) Nonreactive HIV 1&2 Ab/P24 Ag 4thGn Nonreactive ULTRASOUND OF THE ABDOMEN WITH ELASTOGRAPHY 01/22/23 (F-3 CURRENT LABS ULTRASOUND OF THE ABDOMEN WITH ELASTOGRAPHY IMPRESSION: ? 1. There is hepatomegaly. ? 2. There is generalized increase in hepatic echotexture, consistent with fatty infiltration or hepatocellular disease. Please correlate clinically. No focal hepatic mass or intrahepatic biliary dilatation is seen. ? 3. Liver elastography:? Measurements are suggestive of compensated advanced chronic liver disease but need further test for confirmation. ? 4. Technically limited ultrasound examination the pancreas. ? 5. The gallbladder is surgically absent. Code(s): K75.81 - Nonalcoholic steatohepatitis (POWERS) Category: Medical (2) Wheelchair dependence: Code(s): Z99.3 - Dependence on wheelchair Category: Medical (3) Diabetes mellitus: Code(s): E11.9 - Type 2 diabetes mellitus without complications Category: Medical (4) Morbid obesity: Code(s): E66.01 - Morbid (severe) obesity due to excess calories Category: Medical (5) Hormone imbalance: Code(s): E34.9 - Endocrine disorder, unspecified Category: Medical Plan Pashto #Lashon Live She is here today with a male family member who is supportive. She seems to continues to struggle with her diabetes control and weight as she admits to eating a lot of raisin bran and rice and her A1C, she thinks was 8%. I again emphasize that wt loss and diabetes control are what are important to controlling the future liver health. As a courtesy I refer her to endocrinology for her diabetes mgmt. She also expresses concerns that my hormones are out of balance, as she has facial hair and feels poorly. I think she is talking about possible PCOS which is a more difficult thing to dx so I refer her to endocrinology. She is MO and I will get a TSH. ROV 6 mos. Orders: Orders Hemoglobin A1c Today E11.9 - Type 2 diabetes mellitus without complications Comprehensive Met. Panel Today K75.81 - Nonalcoholic steatohepatitis (POWERS), Z99.3 - Dependence on wheelchair Complete Blood Count Auto Diff Today K75.81 - Nonalcoholic steatohepatitis (POWERS), Z99.3 - Dependence on wheelchair US abdomen complete Today K75.81 - Nonalcoholic steatohepatitis (PWOERS), Z99.3 - Dependence on wheelchair TSH reflex Free T4 Today E66.01 - Morbid (severe) obesity due to excess calories, K75.81 - Nonalcoholic steatohepatitis (POWERS) Referrals FOOD PACKER Referral E34.9 - Endocrine disorder, unspecified Endocrinology Referral E11.9 - Type 2 diabetes mellitus without complications LABS Not obtained US ABD 03/26/2025 FINDINGS: PANCREAS: The head and the body the pancreas is homogeneous in echotexture. The tail is obscured by overlying gas. ABDOMINAL AORTA: The mid, and distal segments are normal in caliber. INFERIOR VENA CAVA: Visualized portions are normal. LIVER: Liver is normal size measuring 20.7 cm. The liver contour is lobulated. Parenchymal echogenicity is increased. No focal hepatic lesion. There is no intrahepatic biliary duct dilatation seen. There is normal hepatopedal flow seen in the middle portal vein. GALLBLADDER: The gallbladder has been surgically removed. COMMON BILE DUCT: Normal in caliber measuring 0.7 cm in diameter. RIGHT KIDNEY: No hydronephrosis. No renal calculi or focal parenchymal lesions. The kidney measures 10.9 cm in maximum dimension. LEFT KIDNEY: No hydronephrosis. No renal calculi or focal parenchymal lesions. The kidney measures 10.8 cm in maximum dimension. SPLEEN: The spleen measures 9.7 cm in maximum dimension. FREE FLUID: None. US/US abdomen complete IMPRESSION: Slightly lobulated liver contour with increased echogenicity and mild hepatomegaly. No focal lesion. Mild hepatic steatosis. The gallbladder has been surgically removed. Rest of the abdominal ultrasound is unremarkable. TODAYS VISIT Pashto Urmila Ortiz [facility] Medical History (Updated 03/30/25 @ 15:06 by MANUEL Glass) Screening for cervical cancer Transaminitis Left hemiplegia Physical exam Poorly controlled diabetes mellitus Osteoporosis Wheelchair dependence Essential hypertension Surgical History History of shoulder surgery History of cholecystectomy History of History of knee surgery Family History Mother Breast cancer Hypertension Diabetes Kidney disease Father Heart disease Social History Household Members: Family Housing: Apartment Alcohol intake: current Alcohol intake frequency: holidays/special occasions only Alcohol type: beer and wine Patient Tobacco Use Status: Former Tobacco user Tobacco use type: Cigarette e-Cigarette/Vaping Use: Never Used Second Hand Smoke Exposure: No service: No Current occupational status: unemployed Cognitive needs: Yes Hearing needs: No Vision needs: Yes Female Reproductive History Menstrual Age of Menarche: 8 Review of Systems Const Denies fatigue, Denies fever(s), Denies night sweats, Denies poor appetite and Denies weight loss Eyes Details: glasses Reports requires corrective lenses ENT Reports Normal hearing present, Denies dental pain, Denies dysphagia, Denies hearing loss, Denies mouth pain, Denies odynophagia, Denies throat swelling, Denies tongue swelling and Reports other (Dentition adequate) Card Reports no additional complaints Resp Reports no additional complaints GI Details: Denies abdominal pain, Denies melena, Reports bloating, Denies hematochezia, Denies constipation, Denies GI cramping, Denies dysphagia, Denies excessive flatus, Denies early satiety, Denies heartburn, Denies diarrhea, Denies nausea, Denies odynophagia, Denies vomiting and Denies hematemesis Musc Reports abnormal gait Skin/Breast Denies pruritus, Denies lesions, Denies rash and Denies jaundice Neuro Reports Normal hearing present, Denies Abnormal speech present, Reports abnormal gait and Reports focal weakness Endo Denies fatigue Aller/Immun Denies throat swelling and Denies tongue swelling Physical Exam Vital Signs: Last Vital Signs Pulse 69 03/30/25 14:49 BP 116/66 03/30/25 14:49 BMI result Body Mass Index 43.7 Const General: cooperative, no acute distress, well developed and well groomed Nutritional Appearance: well nourished and obese Orientation/consciousness: oriented to person, oriented to place and oriented to time Limitations: language barrier and wheelchair HEENT Head: Yes normocephalic and Yes atraumatic Eyes General: appearance normal, both eyes and all related structures Pupils: Equal, round and reactive pupils present Neck Neck: Yes normal visual inspection and Yes no lymphadenopathy Thyroid: Thyroid normal Resp Effort & Inspection: normal respiratory effort and able to speak in complete sentences Auscultation: clear to auscultation bilaterally Cardio Rate: regular rate Rhythm: regular rhythm Heart sounds: Normal, physiologic split S2 sound present Peripheral pulses: radial pulses present and posterior tibial pulses present GI Inspection: No distended, Yes Abdominal panniculus present and Yes obesity Palpation (GI): Soft to palpation, nontender, no guarding, not rigid and No hepatosplenomegaly present Percussion: Yes normal to percussion Auscultation: normal bowel sounds Rectal Exam - Female: deferred Skin General skin exam: no rashes or lesions noted, turgor normal, skin not dry, no jaundice, No spider nevi and no striae Rashes: no rashes Nails: normal Neuro Other: Left hemiplegia noted General: oriented to person, oriented to place and oriented to time Cranial nerves: Yes Equal, round and reactive pupils present and Yes Normal hearing present Speech: No Abnormal speech present Extrem General: No clubbing, No cyanosis, No edema and Yes Dysmorphic (Contractures of the left upper extremity) Psych Appearance: grossly normal and well kempt Mental Status: mental status grossly normal Speech and movement: Slowed speech present (Psych) Affect: normal affect Attitude: cooperative Thought process: Normal thought process present and not confabulating Thought content: Normal thought content present Insight: Good insight present (Psych) Judgement: Good judgement present (Psych) Assessment & Plan Assessment & Plan (1) POWERS (nonalcoholic steatohepatitis): Comment: Baseline Laboratory Tests 07/17/22 Estimated GFR > 60 Hgb A1c (Clinic) 8.2 H Total Bilirubin 0.7 AST 87 H ALT 68 H Alkaline Phosphatase 94 12/05/22 Plt Count 327 Estimated GFR > 60 Hgb A1c (Clinic) Hemoglobin A1c % 9.4 Total Bilirubin 0.7 AST 87 H ALT 68 H Alkaline Phosphatase 94 Ferritin 579 H GGT 91 H. Alpha Fetoprotein 3.3 LASHON Screen NEGATIVE Hgb A1c (Clinic) 7.3 H Anti-Mitochondrial Ab NEGATIVE Anti-Smooth Muscle Ab <20 Hepatitis A IgM Ab Nonreactive Hep Bs Antigen Negative Hep Bs Antibody NONREACTIVE Hep B Core Total Ab Nonreactive Hepatitis C Ab (EIA) Nonreactive HIV 1&2 Ab/P24 Ag 4thGn Nonreactive ULTRASOUND OF THE ABDOMEN WITH ELASTOGRAPHY 01/22/23 (F-3 CURRENT LABS ULTRASOUND OF THE ABDOMEN WITH ELASTOGRAPHY IMPRESSION: ? 1. There is hepatomegaly. ? 2. There is generalized increase in hepatic echotexture, consistent with fatty infiltration or hepatocellular disease. Please correlate clinically. No focal hepatic mass or intrahepatic biliary dilatation is seen. ? 3. Liver elastography:? Measurements are suggestive of compensated advanced chronic liver disease but need further test for confirmation. ? 4. Technically limited ultrasound examination the pancreas. ? 5. The gallbladder is surgically absent. Code(s): K75.81 - Nonalcoholic steatohepatitis (POWERS) Category: Medical (2) Morbid obesity: Code(s): E66.01 - Morbid (severe) obesity due to excess calories Category: Medical (3) Diabetes mellitus: Code(s): E11.9 - Type 2 diabetes mellitus without complications Category: Medical Plan Pashto #Becki Live She is here today with a male family member who is supportive She is here today for follow-up on her fatty liver, and her ultrasound does show some lobular contours as it has in the past with no evidence of progression however she did not get the blood work for me to give her complete picture. She will go for the labs today. The only other GI problem she expresses has to do with bloating and gas when she eats broccoli and cabbage. These are very gassy foods and usually this is difficult to mediated. I also give them a copy of the FODMAP diet. Return office visit in 6 weeks Coding Level of Care Code Est Pt Level 3 (96426) Diagnoses POWERS (nonalcoholic steatohepatitis) K75.81 Morbid obesity E66.01 Diabetes mellitus E11.9
[2025-03-30 14:49] VITALS: BP 116/66; PULSE 69; BMI 43.7
--- OUTSIDE RECORDS SUMMARY | 2025-03-30 17:49 | XMS_ITS | Clinical Summary ---
Author Organization [employer] Address [address] [place] [address] Care Team Providers Care Control Inspector Name Role Phone Unavailable Primary Care Provider [...] patient's age to complete this topic Insurance [facility] STANDARD [facility] < 65
== END 2025-03-30 15:19 | disposition home or self-care (01) ==
LOC: HO.HGI 14:37
PROVIDERS: PCP Internal Medicine; Visit Provider Nurse Practitioner
DX: K75.81 Nonalcoholic steatohepatitis (NASH) (principal); E66.01 Morbid (severe) obesity due to excess calories; E11.9 Type 2 diabetes mellitus without complications
CPT/HCPCS: 99213

== ENCOUNTER 2025-04-20 12:41 | Outpatient (AMB) | payer OTHER, SELFPAY ==
--- NOTE | 2025-04-20 13:20 | MHC.OFFVIS ---
Vital Signs 04/20/25 13:27 Height 5 ft 3 in BMI Reason not done Patient refused/unable BP 120/90 H Blood Pressure Location Rt radial Position Sitting Pulse 83 Pulse Source Pulse Oximeter Pulse Oximetry (%) 97 Oxygen Delivery Method Room Air Intake Visit Reasons: Osteoporosis Intake Note: Patient presents for Osteoporosis follow up. Ict Security Specialist Required: Yes Ict Security Specialist Services: Ict Security Specialist Present Ict Security Specialist Name: Lindsey [phone] Information Interpreted: non-clinical & clinical Allergies No Known Allergies (No Known Allergies*) Allergy (Verified 04/20/25 13:26) Medication List - Last Reconciled 04/20/25 by Mayra Alford MD [adult diapers pull-ups As directed] alendronate 70 mg (75 mL) PO QWEEK amitriptyline 25 mg PO BEDTIME 90 days amlodipine-benazepril 5-10 mg 1 cap PO DAILY 90 days atorvastatin 40 mg PO BEDTIME 90 days blood sugar diagnostic (FreeStyle Lite Strips) Use 1 test strip once a day blood-glucose meter (FreeStyle Lite Meter kit) As directed cholecalciferol (vitamin D3) 25 mcg PO DAILY 90 days clopidogrel 75 mg PO DAILY 90 days disposable gloves As directed dulaglutide (Trulicity) 3 mg (0.5 mL) subcut QWEEK 30 days empagliflozin (Jardiance) 10 mg PO DAILY 90 days fluoxetine 20 mg PO DAILY Gait belt As directed hospital bed As directed [shakila lift electric As directed] hydroxyzine HCl 50 mg PO TID PRN 30 days [incontinence wipes As directed] lancets (FreeStyle Lancets) Use 1 lancet once a day [mattress for hosptial bed As directed] metoprolol tartrate 50 mg PO BID 90 days montelukast 10 mg PO DAILY 90 days TENS unit electrodes As directed underpads (Certainty Underpads) As directed [wheelchair bariatric As directed] [wipes As directed] zolpidem 10 mg PO BEDTIME PRN HPI Comments Details: Patient is a 60-year-old female with 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 Cid - On alendronate 70mg weekly PO liquid - Tolerating same - No fractures Today - On Alendronate 70mg PO liquid - Doing okay - Complaining of worsening back pain with radicular sx Rheumatologic History: Initial history: This is a 58-year-old female who is referred for evaluation of osteoporosis. Recent DEXA scan showed a T-score -2.8. Patient is unaware of any history of fractures. Denies any family history of osteoporosis or fractures. Mentions that she has been having pain in her tailbone. Patient is hemiplegic and wheelchair dependent since she had a stroke a few years ago Current Rheumatology Medication(s): Alendronate 70mg weekly liquid [facility] Medical History (Updated 04/20/25 @ 14:04 by Mayra Alford MD) Screening for cervical cancer Transaminitis Left hemiplegia Physical exam Poorly controlled diabetes mellitus Osteoporosis Wheelchair dependence Essential hypertension Surgical History History of shoulder surgery History of cholecystectomy History of History of knee surgery Family History Mother Breast cancer Hypertension Diabetes Kidney disease Father Heart disease Social History Household Members: Family Housing: Apartment Alcohol intake: current Alcohol intake frequency: holidays/special occasions only Alcohol type: beer and wine Patient Tobacco Use Status: Former Tobacco user Tobacco use type: Cigarette e-Cigarette/Vaping Use: Never Used Second Hand Smoke Exposure: No service: No Current occupational status: unemployed Cognitive needs: Yes Hearing needs: No Vision needs: Yes Female Reproductive History Menstrual Age of Menarche: 8 Review of Systems Const Details: Review of Systems Constitutional: Denies fever, chills, weight loss ENT: Denies vision changes, eye pain or eye redness, dental caries, dry mouth GI: Denies nausea, vomiting, diarrhea, abdominal pain, change in BM Pulm: Denies SOB, MARTINEZ, hemoptysis, wheezing Cards: Denies chest pain, palpitations Skin: Denies Raynaud's, rash, nail changes, photosensitivity, STUDENT SERVICES VICE PRESIDENT: Denies headaches, weakness, paresthesias, recurrent falls MSK: as per HPI All other systems reviewed and are unremarkable except noted above Physical Exam Exam Exam: Vital signs reviewed Physical Examination CONSTITUITIONAL Patient alert and cooperative. Well appearing and in no apparent painful distress Left sided hemiplegia MSK Hands Right Hand: No swelling or tenderness to palpation of the MCPs, PIPs or DIPs. Herbedens nodes noted Left Hand: Swollen and held in flexion, closed fist Wrists Right Wrist: No swelling or TTP Left Wrist: No swelling or TTP Elbows Right Elbow: Full ROM. No swelling or TTP. No TTP of the medial epicondyle. No TTP of the lateral epicondyle Left Elbow: Full ROM. No swelling or TTP. No TTP of the medial epicondyle. No TTP of the lateral epicondyle Shoulders Right shoulder: No swelling noted. No TTP of the AC joint. No TTP of the subacromial bursa. No TTP of the posterior shoulder Left shoulder: No swelling noted. No TTP of the AC joint. No TTP of the subacromial bursa. No TTP of the posterior shoulder Knees Right knee: No swelling noted. No TTP of the knee joint line. No TTP of pes anserine bursa Left knee: No swelling noted. No TTP of the knee joint line. No TTP of pes anserine bursa. Crepitations felt bilaterally Ankles Right ankle: Good ankle dorsiflexion and plantar flexion. No swelling. No TTP of the ankle joint Left ankle: Good ankle dorsiflexion and plantar flexion. No swelling. No TTP of the ankle joint Feet Right foot: Negative squeeze test Left foot: Negative squeeze test Tender points? No tenderness to palpation of the bilateral trapezius, supraspinatus, anterior costochondral junctions, bilateral suboccipital muscle insertions SKIN No rashes Vital Signs: Last Vital Signs Pulse 83 04/20/25 13:27 BP 120/90 H 04/20/25 13:27 Pulse Ox 97 04/20/25 13:27 Oxygen Delivery Method Room Air 04/20/25 13:27 Results Reviewed Results Reviewed: Laboratory Tests 03/30/25 16:03 WBC 9.4 RBC 5.62 H Hgb 15.5 Hct 49.5 H Plt Count 270 Sodium 139 Potassium 3.9 Chloride 107 Carbon Dioxide 26 BUN 14 Creatinine 0.66 AST 57 H ALT 81 H 25-OH Vitamin D Total 34.8 DEXA 12/2022 FINDINGS: AP SPINE L1-L4: BMD 1.181 g/cm2, Z-score -0.1, T-score 0.0, normal. LEFT FEMUR, NECK: BMD 0.691 g/cm2, Z-score -2.1, T-score -2.5, osteoporosis. LEFT FEMUR, TOTAL: BMD 0.651 g/cm2, Z-score -2.8, T-score -2.8, osteoporosis. DEXA 03/2025 FINDINGS: The bone mineral density of the lumbar spine is 1.236 g/cm2, corresponding to a T-score of 0.5, and a Z-score of 0.6. This is indicative of normal bone mineral density. This represents a BMD change of 4.7% compared to the prior exam. This is statistically significant. The bone mineral density of the left total hip is 0.732 g/cm2, corresponding to a T-score of -2.2, and a Z-score of -2.1. This is indicative of osteopenia. This represents a BMD change of 12.4% compared to the prior exam. This is statistically significant. The bone mineral density of the left femoral neck is 0.822 g/cm2, corresponding to a T-score of -1.6, and a Z-score of -1.0. This is indicative of osteopenia. This represents a BMD change of 19.0% compared to the prior exam. Assessment & Plan Assessment & Plan (1) Osteoporosis: Comment: DEXA 12/2022: AP Spine 0.0, Left femur neck -2.5, Left femur total -2.8 DEXA 03/2025: AP Spine 0.5, Left femur neck -1.6, Left femur total -2.2 Alendronate started 03/2023. Couldn't tolerate PO. liquid alendronate well tolerated 09/2023 Code(s): M81.0 - Age-related osteoporosis without current pathological fracture Category: Medical Qualifiers: Osteoporosis type: age-related Presence of current pathological fracture: without current pathological fracture Qualified Code(s): M81.0 - Age-related osteoporosis without current pathological fracture Plan: #Osteoporosis Patient is a 60-year-old female with osteoporosis here today for follow up. Currently on alendronate liquid weekly and doing well. Repeat bone density shows 15-20% improvement in her bone density. We will continue alendronate to complete 5 years and then go on a drug holiday Plan - Alendronate 70mg PO liquid - Continue vit D supplementation - RTC 1 year - CMP, Vit D (2) Encounter for ongoing osteoporosis therapy, bisphosphonates: Code(s): M81.0 - Age-related osteoporosis without current pathological fracture; Z79.83 - long term care administrator (current) use of bisphosphonates Plan: #Long-term Use of Bisphosphonates Risks and benefits of bisphosphonates in the management of osteoporosis Benefits include improved bone density, decreased fracture risk Risks include atypical femoral fractures, GI upset, esophageal strictures Contraindicated in patients with a creatinine clearance < 30 to 35 ml/min Keep vitamin-D at least 35 ng/mL (3) Coccygeal pain: Code(s): M53.3 - Sacrococcygeal disorders, not elsewhere classified Category: Medical Plan: #Coccygeal pain Pain management eval for interventions Plan I spent 30 minutes reviewing the record and labs, taking a history, examining the patient, discussing the treatment plan, ordering diagnostic work up and documenting in the medical record Coding Level of Care Code Est Pt Level 4 (15160) Complex EM visit Add On G2211 Diagnoses Age-related osteoporosis without current pathological fracture M81.0 Osteoporosis type: age-related Presence of current pathological fracture: without current pathological fracture Encounter for ongoing osteoporosis therapy, bisphosphonates M81.0; Z79.83 Coccygeal pain M53.3
[2025-04-20 13:27] VITALS: BP 120/90; PULSE 83; O2SAT 97
--- OUTSIDE RECORDS SUMMARY | 2025-04-20 15:17 | XMS_ITS | Clinical Summary ---
Author Organization [employer] Address [address] [place] [address] Care Team Providers Care Block Stacker Name Role Phone Unavailable Primary Care Provider [...] patient's age to complete this topic Insurance [facility] STANDARD [facility] < 65
== END 2025-04-20 14:04 | disposition home or self-care (01) ==
LOC: HO.RHES 12:42
PROVIDERS: PCP Internal Medicine; Visit Provider Student in an Organized Health Care Education/Training Program
DX: M81.0 Age-related osteoporosis without current pathological fracture (principal); Z79.83 Long term (current) use of bisphosphonates; M53.3 Sacrococcygeal disorders, not elsewhere classified
CPT/HCPCS: 99214; G2211

== ENCOUNTER → 2025-04-20 12:41 | Outpatient (BNVA) | payer OTHER, SELFPAY | PROVIDERS: PCP Internal Medicine; Visit Provider Student in an Organized Health Care Education/Training Program | DX: M81.0 Age-related osteoporosis without current pathological fracture (principal); M53.3 Sacrococcygeal disorders, not elsewhere classified; Z79.83 Long term (current) use of bisphosphonates | CPT/HCPCS: 99212 ==

== ENCOUNTER 2025-05-19 14:02 | Outpatient (AMB) | payer OTHER, SELFPAY ==
--- NOTE | 2025-05-19 14:24 | A.OFFVIS_ITS ---
Vital Signs 05/19/25 15:07 Height 5 ft 3 in BMI Reason not done Patient refused/unable BP 104/62 Blood Pressure Location Rt radial Position Sitting Pulse 72 Pulse Source Pulse Oximeter Pulse Oximetry (%) 96 Oxygen Delivery Method Room Air Intake Visit Reasons: 6 week FUV labs Intake Note: Est pt for mgmt of fatty liver. CC: No new GI concerns or sx per pt. Labs done as of March. Engineering Inspector Required: Yes Engineering Inspector Services: Engineering Inspector Present Engineering Inspector Name: Phylicia [id number] Information Interpreted: clinical only Accompanied by: Self / Same As Patient Allergies No Known Allergies (No Known Allergies*) Allergy (Verified 04/20/25 13:26) HPI HPI 6 week FUV labs: Details: Assessment & Plan (1) POWERS (nonalcoholic steatohepatitis): Comment: Baseline Laboratory Tests 07/17/22 Estimated GFR > 60 Hgb A1c (Clinic) 8.2 H Total Bilirubin 0.7 AST 87 H ALT 68 H Alkaline Phosphatase 94 12/05/22 Plt Count 327 Estimated GFR > 60 Hgb A1c (Clinic) Hemoglobin A1c % 9.4 Total Bilirubin 0.7 AST 87 H ALT 68 H Alkaline Phosphatase 94 Ferritin 579 H GGT 91 H. Alpha Fetoprotein 3.3 ALDA Screen NEGATIVE Hgb A1c (Clinic) 7.3 H Anti-Mitochondrial Ab NEGATIVE Anti-Smooth Muscle Ab <20 Hepatitis A IgM Ab Nonreactive Hep Bs Antigen Negative Hep Bs Antibody NONREACTIVE Hep B Core Total Ab Nonreactive Hepatitis C Ab (EIA) Nonreactive HIV 1&2 Ab/P24 Ag 4thGn Nonreactive ULTRASOUND OF THE ABDOMEN WITH ELASTOGRAPHY 01/22/23 (F-3 CURRENT LABS ULTRASOUND OF THE ABDOMEN WITH ELASTOGRAPHY IMPRESSION: ? 1. There is hepatomegaly. ? 2. There is generalized increase in hepatic echotexture, consistent with fatty infiltration or hepatocellular disease. Please correlate clinically. No focal hepatic mass or intrahepatic biliary dilatation is seen. ? 3. Liver elastography:? Measurements are suggestive of compensated advanced chronic liver disease but need further test for confirmation. ? 4. Technically limited ultrasound examination the pancreas. ? 5. The gallbladder is surgically absent. Code(s): K75.81 - Nonalcoholic steatohepatitis (POWERS) Category: Medical (2) Morbid obesity: Code(s): E66.01 - Morbid (severe) obesity due to excess calories Category: Medical (3) Diabetes mellitus: Code(s): E11.9 - Type 2 diabetes mellitus without complications Category: Medical Plan Amharic #Becki Live She is here today with a male family member who is supportive She is here today for follow-up on her fatty liver, and her ultrasound does show some lobular contours as it has in the past with no evidence of progression however she did not get the blood work for me to give her complete picture. She will go for the labs today. The only other GI problem she expresses has to do with bloating and gas when she eats broccoli and cabbage. These are very gassy foods and usually this is difficult to mediated. I also give them a copy of the FODMAP diet. Return office visit in 6 weeks Orders: Orders Hemoglobin A1c Today E11.9 - Type 2 diabetes mellitus without complications Comprehensive Met. Panel Today K75.81 - Nonalcoholic steatohepatitis (POWERS), Z99.3 - Dependence on wheelchair Complete Blood Count Auto Diff Today K75.81 - Nonalcoholic steatohepatitis (POWERS), Z99.3 - Dependence on wheelchair US abdomen complete Today K75.81 - Nonalcoholic steatohepatitis (POWERS), Z99.3 - Dependence on wheelchair TSH reflex Free T4 Today E66.01 - Morbid (severe) obesity due to excess calories, K75.81 - Nonalcoholic steatohepatitis (POWERS) Referrals Laboratory Tests 03/30/25 16:03 WBC 9.4 Hgb 15.5 Hct 49.5 H MCV 88.1 MCH 27.6 Plt Count 270 Estimated GFR > 60 Hemoglobin A1c % 6.3 H Total Bilirubin 0.4 AST 57 H ALT 81 H Alkaline Phosphatase 97 TSH 1.21 TODAYS VISIT Amharic # PFSH Medical History Other intervertebral disc degeneration, lumbar region Screening for cervical cancer Transaminitis Left hemiplegia Physical exam Poorly controlled diabetes mellitus Osteoporosis Wheelchair dependence Essential hypertension Surgical History History of shoulder surgery History of cholecystectomy History of History of knee surgery Family History Mother Breast cancer Hypertension Diabetes Kidney disease Father Heart disease Social History Household Members: Family Housing: Apartment Alcohol intake: current Alcohol intake frequency: holidays/special occasions only Alcohol type: beer and wine Patient Tobacco Use Status: Former Tobacco user Tobacco use type: Cigarette e-Cigarette/Vaping Use: Never Used Second Hand Smoke Exposure: No service: No Current occupational status: unemployed Cognitive needs: Yes Hearing needs: No Vision needs: Yes Female Reproductive History Menstrual Age of Menarche: 8 Review of Systems Const Denies fatigue, Denies fever(s), Denies night sweats, Denies poor appetite and Denies weight loss Eyes Details: glasses Reports requires corrective lenses ENT Reports Normal hearing present, Denies dental pain, Denies dysphagia, Denies hearing loss, Denies mouth pain, Denies odynophagia, Denies throat swelling, Denies tongue swelling and Reports other (Dentition adequate) Card Reports no additional complaints Resp Reports no additional complaints GI Details: Denies abdominal pain, Denies melena, Denies bloating, Denies hematochezia, Denies constipation, Denies GI cramping, Denies dysphagia, Denies excessive flatus, Denies early satiety, Denies heartburn, Denies diarrhea, Denies nausea, Denies odynophagia, Denies vomiting and Denies hematemesis Skin/Breast Denies pruritus, Denies lesions, Denies rash and Denies jaundice Neuro Reports Normal hearing present and Denies Abnormal speech present Endo Denies fatigue Aller/Immun Denies throat swelling and Denies tongue swelling Physical Exam Vital Signs: Last Vital Signs Pulse 72 05/19/25 15:07 BP 104/62 05/19/25 15:07 Pulse Ox 96 05/19/25 15:07 Oxygen Delivery Method Room Air 05/19/25 15:07 Const General: cooperative, no acute distress, well developed and well groomed Nutritional Appearance: well nourished and obese Orientation/consciousness: oriented to person, oriented to place and oriented to time Limitations: language barrier and wheelchair HEENT Head: Yes normocephalic and Yes atraumatic Eyes General: appearance normal, both eyes and all related structures Pupils: Equal, round and reactive pupils present Neck Neck: Yes normal visual inspection and Yes no lymphadenopathy Thyroid: Thyroid normal Resp Effort & Inspection: normal respiratory effort and able to speak in complete sentences Auscultation: clear to auscultation bilaterally Cardio Rate: regular rate Rhythm: regular rhythm Heart sounds: Normal, physiologic split S2 sound present Peripheral pulses: radial pulses present and posterior tibial pulses present GI Inspection: No distended, Yes Abdominal panniculus present and Yes obesity Palpation (GI): Soft to palpation, nontender, no guarding, not rigid and No hepatosplenomegaly present Percussion: Yes normal to percussion Auscultation: normal bowel sounds Rectal Exam - Female: deferred Skin General skin exam: no rashes or lesions noted, turgor normal, skin not dry, no jaundice, No spider nevi and no striae Rashes: no rashes Nails: normal Neuro General: oriented to person, oriented to place and oriented to time Cranial nerves: Yes Equal, round and reactive pupils present and Yes Normal hearing present Speech: No Abnormal speech present Extrem General: Yes normal to inspection, No clubbing, No cyanosis and No edema Psych Appearance: grossly normal and well kempt Mental Status: mental status grossly normal Speech and movement: Normal speech and movement present Affect: normal affect Attitude: cooperative Thought process: Normal thought process present and not confabulating Thought content: Normal thought content present Insight: Limited insight present (Psych) Judgement: Limited judgement present (Psych) Assessment & Plan Assessment & Plan (1) POWERS (nonalcoholic steatohepatitis): Comment: Baseline Laboratory Tests 07/17/22 Estimated GFR > 60 Hgb A1c (Clinic) 8.2 H Total Bilirubin 0.7 AST 87 H ALT 68 H Alkaline Phosphatase 94 12/05/22 Plt Count 327 Estimated GFR > 60 Hgb A1c (Clinic) Hemoglobin A1c % 9.4 Total Bilirubin 0.7 AST 87 H ALT 68 H Alkaline Phosphatase 94 Ferritin 579 H GGT 91 H. Alpha Fetoprotein 3.3 ALDA Screen NEGATIVE Hgb A1c (Clinic) 7.3 H Anti-Mitochondrial Ab NEGATIVE Anti-Smooth Muscle Ab <20 Hepatitis A IgM Ab Nonreactive Hep Bs Antigen Negative Hep Bs Antibody NONREACTIVE Hep B Core Total Ab Nonreactive Hepatitis C Ab (EIA) Nonreactive HIV 1&2 Ab/P24 Ag 4thGn Nonreactive ULTRASOUND OF THE ABDOMEN WITH ELASTOGRAPHY 01/22/23 (F-3 CURRENT LABS 03/30/25 16:03 WBC 9.4 Hgb 15.5 Hct 49.5 H MCV 88.1 MCH 27.6 Plt Count 270 Estimated GFR > 60 Hemoglobin A1c % 6.3 H Total Bilirubin 0.4 AST 57 H ALT 81 H Alkaline Phosphatase 97 TSH 1.2 ULTRASOUND OF THE ABDOMEN 03/26/2025 IMPRESSION: ? 1. There is hepatomegaly. ? 2. There is generalized increase in hepatic echotexture, consistent with fatty infiltration or hepatocellular disease. Please correlate clinically. No focal hepatic mass or intrahepatic biliary dilatation is seen. ? 3. Liver elastography:? Measurements are suggestive of compensated advanced chronic liver disease but need further test for confirmation. ? 4. Technically limited ultrasound examination the pancreas. ? 5. The gallbladder is surgically absent. Code(s): K75.81 - Nonalcoholic steatohepatitis (POWERS) Category: Medical (2) Colon cancer screening: Code(s): Z12.11 - Encounter for screening for malignant neoplasm of colon Category: Medical Plan Amharic #Nelia live She has returned today for her labs for her POWERS follow-up. Her transaminases remain elevated, but they are improved over when we 1st started monitoring her back in 2022. This is likely due to her improving diabetes control since her A1c in 2022 was greater than 9% and is now down to just over 6%. While I am not treating her for any other GI concerns, I did note is that she does not seem to have had any colon cancer screening. I shared with her the Cologuard instruction video and she feels that this would be inappropriate screening tool for her, and easier than trying to prep for colonoscopy given her limited mobility. There is no family history of colon cancer so this would seem like a good approach, and if it becomes positive then we can proceed to what would shortly be a more difficult process of prepping for colonoscopy. Return office visit in 8 weeks Coding Level of Care Code Est Pt Level 4 (66502) Diagnoses POWERS (nonalcoholic steatohepatitis) K75.81 Colon cancer screening Z12.11 Time Spent (min) 34
[2025-05-19 15:07] VITALS: BP 104/62; PULSE 72; O2SAT 96
--- OUTSIDE RECORDS SUMMARY | 2025-05-19 17:19 | XMS_ITS | Clinical Summary ---
Author Organization [employer] Address [address] [place] [address] Care Team Providers Care Facsimile Machine Operator Name Role Phone Unavailable Primary Care Provider [...] patient's age to complete this topic Insurance [facility] STANDARD [facility] < 65
== END 2025-05-19 15:35 | disposition home or self-care (01) ==
LOC: HO.HGI 14:03
PROVIDERS: PCP Internal Medicine; Visit Provider Nurse Practitioner
DX: K75.81 Nonalcoholic steatohepatitis (NASH) (principal)
CPT/HCPCS: 99214

== ENCOUNTER → 2025-05-19 14:02 | Outpatient (BNVA) | payer OTHER, SELFPAY | PROVIDERS: PCP Internal Medicine; Visit Provider Nurse Practitioner | DX: Z01.818 Encounter for other preprocedural examination (principal); K75.81 Nonalcoholic steatohepatitis (NASH) | CPT/HCPCS: 99212 ==

== ENCOUNTER 2025-05-20 13:12 | Outpatient (AMB) | payer OTHER, SELFPAY ==
--- NOTE | 2025-05-20 13:26 | MHC.AMNUTRGE ---
Intake Visit Reasons: t2dm Allergies No Known Allergies (No Known Allergies*) Allergy (Verified 05/28/25 10:25) Nutrition Presentation Details: Pt presents for MNT for T2DM. 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 Most recent weight in March 2025 at 247 lb, most recent A1c in March 2025 at 6.3% Pt reports having 1 meal replacement a day Reports choosing low-fat food options like fruits, low sugar Jell-O as snacks Working on following healthy plate method, gradually working on making diet modifications BS Monitoring Most Recent Diabetes Results: Cholesterol, (<200) 191 mg/dL 03/30/25 HDL Cholesterol, (>40) 44 mg/dL 03/30/25 Triglycerides, (<150) 183 mg/dL H 03/30/25 Creatinine, (0.5-1.4) 0.66 mg/dL 03/30/25 BUN, (9-16) 14 mg/dL 03/30/25 Sodium, (135-145) 139 mmol/L 03/30/25 Potassium, (3.3-5.1) 3.9 mmol/L 03/30/25 Chloride, (96-108) 107 mmol/L 03/30/25 Carbon Dioxide, (22-29) 26 mmol/L 03/30/25 Calcium, (8.4-10.2) 9.5 mg/dL 03/30/25 AST, (5-31) 57 U/L H 03/30/25 ALT, (0-31) 81 U/L H 03/30/25 Total Protein, (6.5-8.0) 8.6 g/dL H 03/30/25 Albumin, (3.5-5.0) 4.2 g/dL 03/30/25 [facility] Medical History Other intervertebral disc degeneration, lumbar region Screening for cervical cancer Transaminitis Left hemiplegia Physical exam Poorly controlled diabetes mellitus Osteoporosis Wheelchair dependence Essential hypertension Surgical History History of shoulder surgery History of cholecystectomy History of History of knee surgery Family History Mother Breast cancer Hypertension Diabetes Kidney disease Father Heart disease Social History Household Members: Family Housing: Apartment Alcohol intake: current Alcohol intake frequency: holidays/special occasions only Alcohol type: beer and wine Patient Tobacco Use Status: Former Tobacco user Tobacco use type: Cigarette e-Cigarette/Vaping Use: Never Used Second Hand Smoke Exposure: No service: No Current occupational status: unemployed Cognitive needs: Yes Hearing needs: No Vision needs: Yes Female Reproductive History Menstrual Age of Menarche: 8 Assessment & Plan Assessment & Plan (1) Diabetes mellitus: Code(s): E11.9 - Type 2 diabetes mellitus without complications Category: Medical Plan: ++ RECOMMEND for PCP to monitor for b12, niacin and magnesium deficiencies related to hx of stroke and poor intake /possible poor absorption current wt: est 112 kg ( 04/01 ) est kcal needs as per MSJ: 2000 - 500 = 1500 est protein needs as per 1 g/kg BW: 110 est fluid needs as per 30 ml/kg BW: 3400 (unless otherwise specified by MD) Recommended fiber > 12 g /day and gradually increase up to 25-28 g /day or as tolerated Nutrition topics discussed : Reviewed (R), Pt verbalized understanding (V) , not applicable (N/A) R, : Healthy Plate Method Concept: R, V, N/A: Carbohydrates: food sources of carbohydrates, relationship of carbohydrates to blood glucose, fatty liver GI health. Recommended total amount of carbohydrates per meals and snack. Differences between simple carbohydrates and complex carbohydrates R, : Lean protein foods including vegan , vegetarian sources of protein. Benefits of protein (including but not limited to healing, nutritional value , benefits in weight loss, glucose control R, : Fats : Source of fats, benefits of fats. Difference between saturated and unsaturated fats. Saturated fats and its contribution to inflammation R, : Fiber: food sources and role of fiber in the diet (including but not limited to its role as a prebiotic, benefits in constipation, role in IBS , role in glucose control and cholesterol level) R, : Hydration: role of hydration and prevention of dehydration or over hydration. Foods and water content. R, V, N/A: Vitamins and Minerals in foods and supplements R, V, N/A: Interpreting food labels, including serving size, macronutrients, vitamins, minerals, allergens, ingredient list , % daily value Patient Instructions: Continue following healthy plate method it and include at least 3 servings of dairy, or calcium rich foods in the diet see list of options Switch to lower fat protein sources ( ground turkey, 95% lean meat, choose low-fat cooking methods ) Use seasoning with less sodium, seen list of options discussed Coding Level of Care Code Nutr Indiv Subseq (42557) Diagnoses Diabetes mellitus E11.9 Time Spent (min) 30
--- OUTSIDE RECORDS SUMMARY | 2025-05-20 16:33 | XMS_ITS | Clinical Summary ---
Author Organization [employer] Address [address] [place] [address] Care Team Providers Care Commercial Solar Sales Consultant Name Role Phone Unavailable Primary Care Provider [...] of 2) 01/30/2014 COVID-19 Vaccine ( - 2024-2 6 season) 2025 Influenza Vaccine (#1) 2025 , [...] patient's age to complete this topic Insurance [facility] STANDARD [facility] < 65
== END 2025-05-20 14:05 | disposition home or self-care (01) ==
LOC: HO.ENCR 13:13
PROVIDERS: PCP Internal Medicine; Visit Provider Dietitian, Registered
DX: E11.9 Type 2 diabetes mellitus without complications (principal)

== ENCOUNTER → 2025-05-20 13:12 | Outpatient (BNVA) | payer OTHER, SELFPAY | PROVIDERS: PCP Internal Medicine; Visit Provider Dietitian, Registered | DX: L68.0 Hirsutism (principal); E11.9 Type 2 diabetes mellitus without complications; Z71.3 Dietary counseling and surveillance | CPT/HCPCS: 97803; 99212 ==

== ENCOUNTER 2025-05-20 15:27 | Outpatient (AMB) | payer OTHER, SELFPAY ==
--- NOTE | 2025-05-20 15:32 | A.OFFVIS_ITS ---
Vital Signs 05/20/25 15:45 Height 5 ft 3 in BMI Reason not done Patient refused/unable BP 128/68 Blood Pressure Location Rt brachial Position Sitting Pulse Source Pulse Oximeter Pulse Oximetry (%) 75 L Oxygen Delivery Method Room Air Intake Visit Reasons: Hirsutism Intake Note: NEW Patient presents today to establish care for Hirsutism: No acute complaints reported at this time Business Systems Administrator Required: No Business Systems Administrator Services: Business Systems Administrator Offered & Declined (DR Meredith Speak Fluent Prydeinig) Business Systems Administrator Name: August [id number] Information Interpreted: non-clinical & clinical Accompanied by: Self / Same As Patient Allergies No Known Allergies (No Known Allergies*) Allergy (Verified 05/20/25 15:34) Medication List - Last Reconciled 05/20/25 by Maggie Atkins MD [adult diapers pull-ups As directed] alendronate 70 mg (75 mL) PO QWEEK amitriptyline 25 mg PO BEDTIME 90 days amlodipine-benazepril 5-10 mg 1 cap PO DAILY 90 days atorvastatin 40 mg PO BEDTIME 90 days blood sugar diagnostic (FreeStyle Lite Strips) Use 1 test strip once a day blood-glucose meter (FreeStyle Lite Meter kit) As directed buspirone 10 mg PO BID cholecalciferol (vitamin D3) 25 mcg PO DAILY 90 days clopidogrel 75 mg PO DAILY 90 days disposable gloves As directed dulaglutide (Trulicity) 3 mg (0.5 mL) subcut QWEEK 30 days empagliflozin (Jardiance) 10 mg PO DAILY 90 days fluoxetine 20 mg PO DAILY Gait belt As directed hospital bed As directed [shakila lift electric As directed] hydroxyzine HCl 50 mg PO TID PRN 30 days [incontinence wipes As directed] lancets (FreeStyle Lancets) Use 1 lancet once a day [mattress for hosptial bed As directed] metoprolol tartrate 50 mg PO BID 90 days montelukast 10 mg PO DAILY 90 days spironolactone 50 mg PO DAILY TENS unit electrodes As directed underpads (Certainty Underpads) As directed [wheelchair bariatric As directed] [wipes As directed] zolpidem 10 mg PO BEDTIME PRN HPI Comments Details: 60-year-old female coming in today for initial evaluation of hirsutism. here today with son , John. presents with complaints of hirsutism. says she has always had it Says more bothersome to her now as it is worsening. facial hair and around the nipple. Cosmetic therapies: waxing, clipping Never tried any medications in the past Denies acne, reports hair loss. She has a history of HTN, hyperlipidemia, diabetes. Denies lowering of voice POst menopausal since 52 years old. natural menopause. During reproductive years, initially irregular, more regulated after of son at age 36 Menarche: 8 years old Pregnancies: 2 , 1 miscarriage Thinks she has lost weight recently Hirsutism is described as moderate ,she reports that she had to clip them every week. She reports its on her Chin,upper lip,chest Medical therapies: She has been on metformin in the past for type 2 DM, not on in currenlty due to GI intolerance. On trulicity now for type 2 DM for 3 years , thinks it really helped with weight loss and better control of DM Other symptoms: No hx of easy bruisability,prox muscle weakness, Does have Htn,DM,depression, No frontal balding, clitoromegaly, increased muscle mass, or deepening of the voice, No Enlarged jaw (macrognathia) ,no increasing shoe, glove, but does report change in ring size No headaches, visual field defects, and cranial nerve palsies. wheel chair bound with residual left sided weakness since stroke in 2018. Interval history: She reports weight loss with on Trulicity Reports good appetite Reports that her hirsutism if overall about the same No abnormal vaginal bleeding Physical exam: General: Well appearing. NAD. Siting comfortably in her wheelchair Neck/Thyroid: Thyroid not palpable, no nodules. Faces: severe hirsutism of face. Eyes: No conjunctival injection, not lid lag or proptosis CV: RRR, no murmur. No edema. Resp:Lungs clear to auscultation bilaterally Abdomen: Soft, nontender. nondistended Extremities/Neuro: No weakness or tremor of outstretched hands Laboratory Tests 03/30/25 16:03 Sodium 139 Potassium 3.9 Chloride 107 Carbon Dioxide 26 Anion Gap 10 L BUN 14 Creatinine 0.66 Estimated GFR > 60 Hemoglobin A1c % 6.3 H Calcium 9.5 AST 57 H ALT 81 H Alkaline Phosphatase 97 Albumin 4.2 Triglycerides 183 H Cholesterol 191 LDL Cholesterol, Calc 111 H HDL Cholesterol 44 25-OH Vitamin D Total 34.8 TSH 1.21 Total Testosterone 49 H Fr Testosterone Dialys 6.3 Sex Hormone Bind Glob 34 Androstenedione 29 DHEA Sulfate 13 Random Cortisol 5.6 17-Hydroxyprogesterone 20 PFSH Medical History Other intervertebral disc degeneration, lumbar region Screening for cervical cancer Transaminitis Left hemiplegia Physical exam Poorly controlled diabetes mellitus Osteoporosis Wheelchair dependence Essential hypertension Surgical History History of shoulder surgery History of cholecystectomy History of History of knee surgery Family History Mother Breast cancer Hypertension Diabetes Kidney disease Father Heart disease Social History Household Members: Family Housing: Apartment Alcohol intake: current Alcohol intake frequency: holidays/special occasions only Alcohol type: beer and wine Patient Tobacco Use Status: Former Tobacco user Tobacco use type: Cigarette e-Cigarette/Vaping Use: Never Used Second Hand Smoke Exposure: No service: No Current occupational status: unemployed Cognitive needs: Yes Hearing needs: No Vision needs: Yes Female Reproductive History Menstrual Age of Menarche: 8 Physical Exam Vital Signs: Last Vital Signs BP 128/68 05/20/25 15:45 Pulse Ox 75 L 05/20/25 15:45 Oxygen Delivery Method Room Air 05/20/25 15:45 Assessment & Plan Assessment & Plan (1) Hirsutism: Code(s): L68.0 - Hirsutism Category: Medical Plan: 60-year-old female coming in today for initial evaluation of hirsutism. She is postmenopausal with natural menopause at age 52. Hirsutism has been present for many years, however more bothersome to her now as she has had worsening facial hair. She has never tried any medications for it. Uses cosmetic measures such as pluc catia/shaving. Differentials in postmenopausal women include PCOS/insulin resistance/ovarian hyperthecosis/adrenal or ovarian tumors/nonclassic CAH/Kai's disease/acromegaly. She does not have any acromegalic features. Her diabetes mellitus is well-controlled on Trulicity and Jardiance, she has lost weight recently, blood pressure is well-controlled, she does not have any purple abdominal striae, no skin thinning, no easy bruising for me to suspect hypercortisolism. I will check a random cortisol and ACTH to get a baseline but she is incontinent of her urine so no point in doing 24 hour urine cortisol levels. She is not on any steroid medications that would worsen hirsutism. We will check androgen levels +17 hydroxyprogesterone levels to rule out nonclassic CAH. Given she does not have any severe hyper androgenic features such as clitoromegaly, changes in voice, frontal balding I doubt she has any tumors or ovarian hyperthecosis. Given history of irregular periods in her reproductive years, she possibly has a underlying PCOS/insulin resistance, especially given she also has type 2 diabetes mellitus. She is already on a GLP 1 agonist that helped rid weight loss and she has well-controlled for her diabetes mellitus. Agree with aforementioned assessment, based on the labs results showing mildly elevated testosterone indicating either a physiologic mild hyperandrogenism or PCOS syndrome. She agreed to try spironolactone. We explained the side effects including hyperkalemia, hyponatremia and hypotension. Plan: Start Spironolactone 50 mg daily, could be increased up to 200 mg Obtain labs in 5 days after starting the medication to monitor for electrolytes imbalances Follow up in 4 months Plan I spent 30 minutes in reviewing the record, seeing the patient and documenting in the medical record. Orders: Orders Basic Metabolic Panel Today E34.9 - Endocrine disorder, unspecified Medications: New spironolactone 50 mg PO DAILY 60 tabs 2RF E28.2 - Polycystic ovarian syndrome Coding Level of Care Code Est Pt Level 4 (19548) Diagnoses Hirsutism L68.0
[2025-05-20 15:45] VITALS: BP 128/68; O2SAT 75
== END 2025-05-20 16:38 | disposition home or self-care (01) ==
LOC: HO.ENCR 15:28
PROVIDERS: PCP Internal Medicine; Visit Provider Student in an Organized Health Care Education/Training Program
DX: L68.0 Hirsutism (principal)
CPT/HCPCS: 99214

== ENCOUNTER 2025-05-28 10:17 | Outpatient (AMB) | payer OTHER, SELFPAY ==
--- NOTE | 2025-05-28 10:20 | MHC.OFFVIS ---
Vital Signs 05/28/25 10:22 Height 5 ft 3 in Weight 247 lb BMI 43.7 BP 130/72 Blood Pressure Location Rt radial Position Sitting Respiration 16 Pulse 75 Pulse Source Pulse Oximeter Pulse Oximetry (%) 96 Oxygen Delivery Method Room Air Intake Visit Reasons: Other intervertebral disc degeneration Excel Developer Required: Yes Excel Developer Services: Excel Developer Present Accompanied by: Child Allergies No Known Allergies (No Known Allergies*) Allergy (Verified 05/28/25 10:25) Medication List - Last Reconciled 05/28/25 by Nikki Blackburn LPN [adult diapers pull-ups As directed] alendronate 70 mg (75 mL) PO QWEEK amitriptyline 25 mg PO BEDTIME 90 days amlodipine-benazepril 5-10 mg 1 cap PO DAILY 90 days atorvastatin 40 mg PO BEDTIME 90 days blood sugar diagnostic (FreeStyle Lite Strips) Use 1 test strip once a day blood-glucose meter (FreeStyle Lite Meter kit) As directed buspirone 10 mg PO BID cholecalciferol (vitamin D3) 25 mcg PO DAILY 90 days clopidogrel 75 mg PO DAILY 90 days disposable gloves As directed dulaglutide (Trulicity) 3 mg (0.5 mL) subcut QWEEK 30 days empagliflozin (Jardiance) 10 mg PO DAILY 90 days fluoxetine 20 mg PO DAILY Gait belt As directed hospital bed As directed [shakila lift electric As directed] hydroxyzine HCl 50 mg PO TID PRN 30 days [incontinence wipes As directed] lancets (FreeStyle Lancets) Use 1 lancet once a day [mattress for hosptial bed As directed] metoprolol tartrate 50 mg PO BID 90 days montelukast 10 mg PO DAILY 90 days spironolactone 50 mg PO DAILY TENS unit electrodes As directed underpads (Certainty Underpads) As directed [wheelchair bariatric As directed] [wipes As directed] zolpidem 10 mg PO BEDTIME PRN HPI HPI Other intervertebral disc degeneration: Details: History of Present Illness The patient is a 60-year-old female presenting with coccyx pain and left knee pain. The patient has a history of osteoporosis and is currently on alendronate 70 mg weekly for management. 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 The patient reports coccyx pain that is exacerbated by prolonged sitting and is relieved by using a donut pillow to alleviate pressure. The pain does not radiate down the legs and is localized to the tailbone area. The patient also experiences left knee pain, which worsens with bending and is alleviated when the knee is kept straight. The patient has not been taking any medications for pain management. The patient has a history of diabetes mellitus, which complicates the management of knee pain with cortisone injections. Pain Description - Coccyx pain is localized to the tailbone area and does not radiate down the legs. - Pain is exacerbated by prolonged sitting and relieved by using a donut pillow. - Left knee pain worsens with bending and is alleviated when kept straight. Physical Exam - Sitting in wheelchair; unable to move or get up independently Pain Management - Affect: Pain impacts daily activities, requiring adjustments such as using a donut pillow. - Analgesia: No current pain medications being used. - Adverse Effects: None reported as no medications are currently being used. - Activities of Daily Living: Pain affects sitting and mobility, requiring positional adjustments. - Aberrant Drug Related Behaviors: None reported. [facility] Medical History Other intervertebral disc degeneration, lumbar region Screening for cervical cancer Transaminitis Left hemiplegia Physical exam Poorly controlled diabetes mellitus Osteoporosis Wheelchair dependence Essential hypertension Surgical History History of shoulder surgery History of cholecystectomy History of History of knee surgery Family History Mother Breast cancer Hypertension Diabetes Kidney disease Father Heart disease Social History Household Members: Family Housing: Apartment Alcohol intake: current Alcohol intake frequency: holidays/special occasions only Alcohol type: beer and wine Patient Tobacco Use Status: Former Tobacco user Tobacco use type: Cigarette e-Cigarette/Vaping Use: Never Used Second Hand Smoke Exposure: No service: No Current occupational status: unemployed Cognitive needs: Yes Hearing needs: No Vision needs: Yes Female Reproductive History Menstrual Age of Menarche: 8 Physical Exam Vital Signs: Last Vital Signs Pulse 75 05/28/25 10:22 Resp 16 05/28/25 10:22 BP 130/72 05/28/25 10:22 Pulse Ox 96 05/28/25 10:22 Oxygen Delivery Method Room Air 05/28/25 10:22 BMI result Body Mass Index 43.7 Assessment & Plan Assessment & Plan (1) Osteoporosis: Comment: DEXA 12/2022: AP Spine 0.0, Left femur neck -2.5, Left femur total -2.8 DEXA 03/2025: AP Spine 0.5, Left femur neck -1.6, Left femur total -2.2 Alendronate started 03/2023. Couldn't tolerate PO. liquid alendronate well tolerated 09/2023 Code(s): M81.0 - Age-related osteoporosis without current pathological fracture Category: Medical Qualifiers: Osteoporosis type: age-related Presence of current pathological fracture: without current pathological fracture Qualified Code(s): M81.0 - Age-related osteoporosis without current pathological fracture Plan Plan Patient was informed and verbally consented to the use of an ambient scribe for clinic note documentation during this visit. 1. Coccyx Pain - Recommended use of a donut pillow to relieve pressure on the coccyx. - Discussed that MR imaging may not provide useful information for coccyx pain. - XR ordered 2. Left Knee Pain - Consideration of low-dose cortisone injection, but complicated by diabetes and osteoporosis. - Gel injections were discussed as an alternative, though efficacy is uncertain. Patient declined. 3. Osteoporosis - Continued management with alendronate 70 mg weekly. 4. Diabetes Mellitus - Diabetes complicates the use of cortisone injections for knee pain management. Discussion Notes I discussed with the patient the use of a donut pillow to alleviate coccyx pain by reducing pressure on the area. We also talked about the limitations of imaging for coccyx pain and the potential complications of cortisone injections due to the patient's diabetes and osteoporosis. Alternative treatments such as gel injections were considered, though their effectiveness is uncertain. Patient Instructions - Use a donut pillow to relieve pressure on the tailbone. - Monitor knee pain and consider positional adjustments to alleviate discomfort. - Follow up with the clinic if pain persists or worsens. Orders: Orders XR lumbar spine 2-3V 05/28/25 M81.0 - Age-related osteoporosis without current pathological fracture Coding Level of Care Code New Pt Level 4 (12633) Diagnoses Age-related osteoporosis without current pathological fracture M81.0 Osteoporosis type: age-related Presence of current pathological fracture: without current pathological fracture
[2025-05-28 10:22] VITALS: BP 130/72; PULSE 75; RESP 16; O2SAT 96; BMI 43.7
--- OUTSIDE RECORDS SUMMARY | 2025-05-28 10:54 | XMS_ITS | Clinical Summary ---
Author Organization [employer] Address [address] [place] [address] Care Team Providers Care Roll Winder Name Role Phone Unavailable Primary Care Provider [...] patient's age to complete this topic Insurance [facility] STANDARD [facility] < 65
== END 2025-05-28 11:05 | disposition home or self-care (01) ==
LOC: HO.PMC 10:18
PROVIDERS: PCP Internal Medicine; Visit Provider Internal Medicine
DX: M81.0 Age-related osteoporosis without current pathological fracture (principal)
CPT/HCPCS: 99204

== ENCOUNTER → 2025-05-28 10:17 | Outpatient (BNVA) | payer OTHER, SELFPAY | PROVIDERS: PCP Internal Medicine; Visit Provider Internal Medicine | DX: M81.0 Age-related osteoporosis without current pathological fracture (principal); M25.562 Pain in left knee; E11.9 Type 2 diabetes mellitus without complications; M53.3 Sacrococcygeal disorders, not elsewhere classified | CPT/HCPCS: 99202 ==

== ENCOUNTER 2025-06-07 17:15 | Outpatient (AMB) | payer OTHER, SELFPAY ==
[2025-06-07 17:42] VITALS: BP 124/62; PULSE 103; O2SAT 96
--- NOTE | 2025-06-07 17:42 | A.OFFPC_ITS ---
Vital Signs 06/07/25 17:42 BMI Reason not done Patient refused/unable BP 124/62 Blood Pressure Location Rt radial Position Sitting Pulse 103 H Pulse Source Pulse Oximeter Pulse Oximetry (%) 96 Oxygen Delivery Method Room Air Intake Visit Reasons: annual exam Solar Energy Engineer Required: No Accompanied by: Self / Same As Patient Allergies No Known Allergies (No Known Allergies*) Allergy (Verified 06/07/25 17:52) Medication List - Last Reconciled 06/07/25 by Lashon Epps MD [adult diapers pull-ups As directed] alendronate 70 mg (75 mL) PO QWEEK amitriptyline 25 mg PO BEDTIME 90 days amlodipine-benazepril 5-10 mg 1 cap PO DAILY 90 days atorvastatin 40 mg PO BEDTIME 90 days blood sugar diagnostic (FreeStyle Lite Strips) Use 1 test strip once a day blood-glucose meter (FreeStyle Lite Meter kit) As directed buspirone 10 mg PO BID cholecalciferol (vitamin D3) 25 mcg PO DAILY 90 days clopidogrel 75 mg PO DAILY 90 days disposable gloves As directed dulaglutide (Trulicity) 3 mg (0.5 mL) subcut QWEEK 30 days empagliflozin (Jardiance) 10 mg PO DAILY 90 days fluoxetine 20 mg PO DAILY Gait belt As directed hospital bed As directed [shakila lift electric As directed] hydroxyzine HCl 50 mg PO TID PRN 30 days [incontinence wipes As directed] lancets (FreeStyle Lancets) Use 1 lancet once a day [mattress for hosptial bed As directed] metoprolol tartrate 50 mg PO BID 90 days montelukast 10 mg PO DAILY 90 days spironolactone 50 mg PO DAILY TENS unit electrodes As directed underpads (Certainty Underpads) As directed [wheelchair bariatric As directed] [wipes As directed] zolpidem 10 mg PO BEDTIME PRN Tobacco use date assessed: 12/24/24 Dental Screening Dental Screen Date: 12/24/24 HPI HPI Comments History of Present Illness Details The patient is a 60 year old individual presenting for a physical exam. The patient has a history of a stroke approximately 6 years ago, which resulted in residual left hemiplegia. The left arm is reportedly more affected than the left leg. Past surgical history is notable for shoulder and knee surgeries, a cholecystectomy, and a section. Chronic conditions include osteoporosis, for which the patient has been taking alendronate for 5 years. Other managed conditions include hypertension, hyperlipidemia, type 2 diabetes with a controlled A1c, anxiety, and controlled depression. Recent health screenings include a mammogram and bone densitometry this year. The last eye exam was in July, and a custodial operations manager recently ordered a Cologuard test and noted mild fatty liver. The patient reports a history of smoking but quit some time ago, and drinks alcohol very rarely. COUNTS INCLUDE 234 BEDS AT THE [facility] Medical History (Updated 06/07/25 @ 20:55 by Lashon Epps MD) Physical exam Other intervertebral disc degeneration, lumbar region Screening for cervical cancer Transaminitis Left hemiplegia Poorly controlled diabetes mellitus Osteoporosis Wheelchair dependence Essential hypertension Surgical History History of shoulder surgery History of cholecystectomy History of History of knee surgery Family History Mother Breast cancer Hypertension Diabetes Kidney disease Father Heart disease Social History Household Members: Family Housing: Apartment Alcohol intake: current Alcohol intake frequency: holidays/special occasions only Alcohol type: beer and wine Patient Tobacco Use Status: Former Tobacco user Tobacco use type: Cigarette e-Cigarette/Vaping Use: Never Used Second Hand Smoke Exposure: No service: No Current occupational status: unemployed Cognitive needs: Yes Hearing needs: No Vision needs: Yes Female Reproductive History Menstrual Age of Menarche: 8 Questionnaire PHQ-9 Over the last 2 weeks, how often have you been bothered by any of the following problems? 1. Little interest or pleasure in doing things: not at all 2. Feeling down, depressed, or hopeless: not at all 3. Trouble falling or staying asleep, or sleeping too much: not at all 4. Feeling tired or having little energy: not at all 5. Poor appetite or overeating: not at all 6. Feeling bad about yourself - or that you are a failure or have let yourself or your family down: not at all 7. Trouble concentrating on things, such as reading the newspaper or watching television: not at all 8. Moving or speaking so slowly that other people could have noticed. Or the opposite - being so fidgety or restless that you have been moving around a lot more than usual: not at all 9. Thoughts that you would be better off or of hurting yourself in some way: not at all Total score: 0 Depression Screening Interpretation: Negative Depression Screening Done: Yes 14952 - PHQ-9 Billing: Yes Source: Developed by Drs. George Loredo, Dolly Waters, Carlos Celis and colleagues, with an educational yanelis from [employer]. Thrive Questionnaire Date Thrive assessed: 06/07/25 I am a: Patient What is your living situation today?: I choose not to answer this question Within the past 12 months, did the food you bought not last and you didn't have the money to get more?: I choose not to answer this question Within the past 12 months, did you worry whether your food would run out before you got money to buy more?: I choose not to answer this question Do you have trouble paying for medicines?: I choose not to answer this question Do you have trouble getting transportation to medical appointments?: I choose not to answer this question Do you have trouble paying your heating and electricity bill?: I choose not to answer this question Do you have trouble taking care of your child, family member or friend?: I choose not to answer this question Do you have trouble with day-to-day activities such as bathing, preparing meals, shopping, managing finances, etc.?: I choose not to answer this question Are you currently unemployed and looking for a job?: I choose not to answer this question Are you interested in more education?: I choose not to answer this question Please select the resources that you would like help with: None THRIVE Score: 0 CIERRA-7 AMB Questionnaire CIERRA-7 Date CIERRA - 7 assessed: 12/24/24 Source: Developed by Drs. George oLredo, Dolly Waters, Carlos Celis and colleagues, with an educational yanelis from [employer]. Review of Systems Const All systems reviewed & are unremarkable except as noted in HPI and below Card Denies chest pain at rest, Denies chest pain with activity, Denies edema, Denies irregular heart rhythm, Denies claudication, Denies dyspnea, Denies dyspnea on exertion, Denies orthopnea, Denies paroxysmal nocturnal dyspnea and Denies slow heart rate Resp Denies cough, Denies dyspnea and Denies dyspnea on exertion GI Denies abdominal pain, Denies change in bowel habits, Denies excessive flatus, Denies nausea and Denies vomiting Physical exam (Primary Care) Vital Signs: Last Vital Signs Pulse 103 H 06/07/25 17:42 BP 124/62 06/07/25 17:42 Pulse Ox 96 06/07/25 17:42 Oxygen Delivery Method Room Air 06/07/25 17:42 Tobacco/Smoking Status: Tobacco use Status Tobacco use date assessed 12/24/24 06/07/25 17:43 Patient Tobacco Use Status Former Tobacco user 06/07/25 17:43 Tobacco use type Cigarette 06/07/25 17:43 e-Cigarette/Vaping Use Never Used 06/07/25 17:43 PHQ-9: PHQ-9 Score PHQ-9: Total score 0 06/07/25 18:01 Depression Screening Interpretation: Negative Thrive Assessment: Date of Thrive Assessment Date Thrive assessed 06/07/25 06/07/25 17:43 Const Limitations: wheelchair HENMT Head: Yes normal to inspection, Yes normocephalic and Yes atraumatic Ears: external ears normal Eyes General: appearance normal, both eyes and all related structures Eyelids: Yes eyelids normal Conjunctivae: conjunctivae normal Neck Neck: Yes normal visual inspection and Yes supple Resp Effort & Inspection: normal respiratory effort Auscultation: clear to auscultation bilaterally Cardio Jugular venous distension: no JVD Rate: regular rate Rhythm: regular rhythm Heart sounds: S1 normal heart sound present and S2 normal heart sound present GI Inspection: Yes normal to inspection Palpation (GI): Soft to palpation and nontender Auscultation: normal bowel sounds Skin General skin exam: no rashes or lesions noted Neuro Motor exam (neuro): Abnormal motor strength present (5/5 right, LUE 2/5, LLE 3/5) Psych Appearance: grossly normal Results AMB Hemoglobin A1c AMB Hemoglobin A1c 5.9 % Last Edit by Arline Salinas CMA on 06/07/25 18 :02 Results Reviewed Results Reviewed: Laboratory Last Values Hgb A1c (Clinic) 5.9 % (4.0-6.0) 06/07/25 18:02 Coding Level of Care Code Est Pt Level 3 (44756) Est Pt Prev Care 40-64y(96372) Diagnoses Physical exam Z00.00 Stroke I63.9 Left hemiplegia G81.94 Coccygeal pain M53.3 Diabetes mellitus E11.9 Moderate recurrent major depression F33.1 Additional Codes PHQ-9 - 18560 - PHQ-9 Billing: Yes ([id number]) Time Spent (min) 32 Assessment & Plan Assessment & Plan (1) Physical exam: Code(s): Z00.00 - Encounter for general adult medical examination without abnormal findings Category: Medical (2) Stroke: Comment: 2018 Code(s): I63.9 - Cerebral infarction, unspecified Category: Medical (3) Left hemiplegia: Code(s): G81.94 - Hemiplegia, unspecified affecting left nondominant side Category: Medical (4) Coccygeal pain: Code(s): M53.3 - Sacrococcygeal disorders, not elsewhere classified Category: Medical (5) Diabetes mellitus: Code(s): E11.9 - Type 2 diabetes mellitus without complications Category: Medical (6) Moderate recurrent major depression: Code(s): F33.1 - Major depressive disorder, recurrent, moderate Category: Medical Plan Plan 1. Physical exam Repeat in a year. 2. Type 2 Diabetes Mellitus The patient's A1c is controlled. The plan is to discontinue Jardiance 10 mg and increase the Trulicity dose to 4.5 mg. 3. Neuropathic Pain The patient complains of pain in the coccyx area after sitting for a long time. A trial of pregabalin will be initiated for nerve pain. The patient was previously recommended to use a donut-shaped cushion for relief. 4. 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 A referral for physical therapy will be placed to begin in July. Orders: Orders AMB Hemoglobin A1c Today Z13.9 - Encounter for screening, unspecified Lipid Panel 4 Months E78.5 - Hyperlipidemia, unspecified Microalbumin, Random (w Creat) 4 Months R80.9 - Proteinuria, unspecified Vitamin D 25-OH Total 4 Months E55.9 - Vitamin D deficiency, unspecified IRON PROFILE 4 Months D64.9 - Anemia, unspecified Complete Blood Count Auto Diff 4 Months D64.9 - Anemia, unspecified Magnesium 4 Months E83.42 - Hypomagnesemia Vitamin B12 and Folate 4 Months E53.8 - Deficiency of other specified B group vitamins Comprehensive [place]. Panel Fast 4 Months E11.9 - Type 2 diabetes mellitus without complications PT Evaluation and Treatment 4 Weeks G81.94 - Hemiplegia, unspecified affecting left nondominant side Medications: New pregabalin 75 mg PO BID 60 caps 0RF 30 days M53.3 - Sacrococcygeal disorders, not elsewhere classified dulaglutide (Trulicity) 4.5 mg (0.5 mL) subcut QWEEK 6.5 mL 1RF 90 days Discontinued empagliflozin (Jardiance) Discontinued Reason: Patient Completed Course 10 mg PO DAILY 90 days 90 tabs 0RF dulaglutide (Trulicity) Discontinued Reason: Patient Completed Course 3 mg (0.5 mL) subcut QWEEK 30 days 2.5 mL 0RF
--- OUTSIDE RECORDS SUMMARY | 2025-06-07 18:51 | XMS_ITS | Clinical Summary ---
Author Organization [employer] Address [address] [place] [address] Care Team Providers Care Color Sprayer Name Role Phone Unavailable Primary Care Provider [...] patient's age to complete this topic Insurance [facility] STANDARD [facility] < 65
== END 2025-06-07 18:10 | disposition home or self-care (01) ==
LOC: HO.HMCH 17:16
PROVIDERS: PCP Internal Medicine; Visit Provider Internal Medicine
DX: Z00.00 Encounter for general adult medical examination without abnormal findings (principal); I63.9 Cerebral infarction, unspecified; G81.94 Hemiplegia, unspecified affecting left nondominant side; E11.9 Type 2 diabetes mellitus without complications; F33.1 Major depressive disorder, recurrent, moderate; M53.3 Sacrococcygeal disorders, not elsewhere classified

== ENCOUNTER → 2025-06-07 17:15 | Outpatient (BNVA) | payer OTHER, SELFPAY | PROVIDERS: PCP Internal Medicine; Visit Provider Internal Medicine | DX: Z00.00 Encounter for general adult medical examination without abnormal findings (principal); M53.3 Sacrococcygeal disorders, not elsewhere classified; E11.9 Type 2 diabetes mellitus without complications; F33.1 Major depressive disorder, recurrent, moderate; R80.9 Proteinuria, unspecified; E78.5 Hyperlipidemia, unspecified; I69.354 Hemiplegia and hemiparesis following cerebral infarction affecting left non-dominant side | CPT/HCPCS: 83036; 96127; 99212; 99396 ==